=== PATIENT | male | born 1960 | race Caucasian/White ===

== ENCOUNTER 2017-08-27 08:36 | Emergency (ER) | payer BC, OTHER ==
[~2017-08-27] VITALS: Ht 191.8 cm; Wt 96.8 kg
[~2017-08-27 08:36] MED LIST: ASPEC81 PO; B-COTAB18 PO; CHOL100027 PO; MISCCAP80 PO; MULTTAB58 PO; NIAC500T7 PO; NTRGSL/4 UT; OMEG1400 PO; SODI650T8 PO; VITACAP26 PO; VITATAB19 PO
[2017-08-27 08:42] VITALS: TEMP 36.4; Ht 191.8 cm; Wt 96.8 kg
--- NOTE | 2017-08-27 09:23 | DIAGNOSTIC IMAGING REPORT ---
L RIBS UNILATERAL WITH PA CHEST CLINICAL HISTORY: fall; L sided rib pain COMPARISON STUDY: Chest CTA 07/28/2014. FINDINGS: The lungs are clear. The heart is normal in size. No pleural effusions. No pneumothorax. Nondisplaced left lateral eighth rib fracture. IMPRESSION: Nondisplaced left lateral eighth rib fracture. No pneumothorax Electronically signed by: Allan Delacruz M.D. 08/27/2017 9:22 AM Dictated Date/Time: 08/27/2017 9:19 AM
[2017-08-27] MEDS ORDERED: HYDR-5688 PO (09:37)
[2017-08-27 10:00] VITALS: BP 141/83; PULSE 72; O2SAT 97
--- NOTE | 2017-08-27 12:21 | EMERGENCY ROOM VISIT NOTE ---
ED Visit Note First contact with patient: 08:44 Chief Complaint: Left back rib pain. History of Present Illness: Mr. Mancini is a 57-year-old white male who ambulates into the ED complaining of posterior left rib pain. Patient reports approximately one hour ago he was shoveling snow, slipped and fell onto the posterior left ribs. He reports before the fall he had no lightheaded or dizziness, the time and avoid and strike his head or have a loss of consciousness. After the fall he reports he had some mild dizziness but that has subsequently resolved. He also reports he had some nausea but has not vomited. Currently patient is complaining of posterior rib pain just inferior to the scapula in the area of ribs 7 and 8. He describes his pain as a constant deep achy sensation that becomes sharp with cough. He rates his discomfort 6/10. The pain is nonradiating. He has not taken any medications for pain prior to arrival at the hospital. He denies any associated symptoms with his pain and has no additional associated symptoms related to his fall. He denies headache, visual changes, hearing changes, difficult speaking, difficult swallowing, difficulty in relating/coordinating body movements, neck pain, lower back pain. Review of Systems: As noted above in history of present illness. 8 body systems were reviewed and found to be negative as noted above. Past Medical History: Diabetes, hypertension, myocardial infarction with status post stent placement, status post unspecified right ankle surgery. Current Medications: Medications Dose Route/Sig Max Daily Dose Days Date Category Dose Instructions Vitamin B Complex (B-Complex Vitamins) 1 Tab Tab 1 Tab PO DAILY 04/01/15 Reported Vitamin A (Vitamin A-Beta Carotene) 1 Tab Tab 1 Tab PO DAILY 04/01/15 Reported Vitamin D 1000 Unit (Cholecalciferol) 1,000 Unit Cap 4,000 Inter.unit PO BID 04/01/15 Reported [place]-3 ([place]-3 Fatty Acids) 1 Cap Cap 1 Cap PO TID 04/01/15 Reported Multivitamin (Multiple Vitamin) 1 Tab Tab 1 Tab PO DAILY 04/01/15 Reported Aspirin EC Low Dose (Aspirin) 81 Mg Ectab 81 Mg PO QAM 07/29/14 Rx Allergies to Medications: Patient denies. Social History: Patient is currently employed; he feels safe in his home environment; he denies tobacco and alcohol use. Physical Examination: Vital Signs: Date Time Temp Pulse Resp B/P (MAP) Pulse Ox O2 Delivery O2 Flow Rate FiO2 08/27/17 10:00 72 18 141/83 97 08/27/17 08:42 36.4 82 16 116/75 96 Room Air GENERAL: 57-year-old male in mild to moderate distress due to pain, nontoxic- appearing, afebrile and hemodynamically stable. NEUROLOGICAL: Awake, alert and oriented to person, place and time. Answering questions appropriately and following commands. Normal gait. Good hand eye coordination. SKIN: Warm, dry and pink. No soft tissue trauma noted. HEENT: Atraumatic and normocephalic. BACK: No tenderness over the bony cervical and thoracic spine. Mild tenderness over the mid lateral trapezius without spasm. Full range of motion of the cervical spine. No CVA tenderness. THORAX: Lungs sounds are clear to auscultation and equal bilaterally with symmetrical chest wall. No wheezing, rales or rhonchi. Moderate tenderness over the posterior ribs just inferior to the scapula without bony deformity or crepitus. No subcutaneous air. EXTREMITIES: Moves all extremities well on coNo calf tenderness or cords. ED Course: Patient is assessed as noted above. Patient's medication list was reviewed. Patient was offered pain medication and refused. PA Chest and Left Rib X-Rays: Were read by myself and the radiologist showing no acute infiltrates, effusions or pneumothorax. Normal heart silhouette. Nondisplaced left eighth rib fracture. Patient was educated about today's findings and instructed on his treatment plan ; he verbalizes understanding and agreement with this plan. Clinical Impression: Left eighth rib fracture. Status post fall. Disposition: Patient discharged home in stable condition; prior to departure he was reassessed and subjectively reported he was feeling the same. Plan: Comfort measures were discussed with the patient including rest, ice and a sliding pain medication scale of ibuprofen, acetaminophen and [place]; he was given appropriate narcotic precautions and his name was checked in the state database and no red flags were noted. Additionally I discussed the need for deep breathing exercises due to decreased the risk of pneumonia. Patient was encouraged to follow-up with primary care provider for recheck in 4- 5 days if no better. Patient was encouraged return ED for uncontrolled pain, shortness of breath, wheezing, fevers, coughing up blood or any new/concerning symptoms.
== END 2017-08-27 10:01 | disposition home or self-care (01) ==
LOC: C.EDB 08:37 → C.EDA 10:01
DX: S22.32XA Fracture of one rib, left side, initial encounter for closed fracture (principal); W01.0XXA Fall on same level from slipping, tripping and stumbling without subsequent striking against object, initial encounter; I10 Essential (primary) hypertension; E11.9 Type 2 diabetes mellitus without complications; Z79.82 Long term (current) use of aspirin; Z79.899 Other long term (current) drug therapy; Z98.890 Other specified postprocedural states

== ENCOUNTER 2019-09-23 15:59 | Inpatient (IN) ==
[2019-09-23] MEDS ORDERED: ACETAMINOPHEN 500 MG TAB PO STA (16:19)
[2019-09-23] MEDS ORDERED: ACETAMINOPHEN 500 MG TAB ONE (16:20)
[2019-09-23] MEDS ORDERED: SODIUM CHLORIDE 0.9% 1000ML 1,000 ML IV ONE (17:22)
[2019-09-23] MEDS ORDERED: OSELTAMIVIR PHOSPHATE 75 MG CAP PO STA (17:22)
[2019-09-23] MEDS ORDERED: IBUPROFEN 600 MG TAB PO STA (17:23)
[2019-09-23 18:03] LABS: Albumin Level 3.7 gm/dl (3.4-5.0); BUN Creatinine Ratio 9.5 (10-20); Calcium 8.8 mg/dl (8.5-10.1); Creatinine Clr Calc Pharmacy 63.3 ml/min; Est GFR (African American) 63.1; Est GFR (Non-African American) 54.4; Potassium 3.6 mmol/L (3.5-5.1)
[2019-09-23 18:06] LABS: Bilirubin,Total 0.8 mg/dl (0.2-1); Globulin 3.6 gm/dl (2.5-4.0); Total Protein 7.3 gm/dl (6.4-8.2)
[2019-09-23 18:30] LABS: Hematocrit (blood only) 37.6 % (42-52); Hemoglobin 14.6 g/dL (14.0-18.0); Mean Corpuscular Hemoglobin 33.2 pg (25-34); Mean Corpuscular Hgb Conc 38.8 g/dL (32-36); Mean Corpuscular Volume 85.5 fL (80-100); Mean Platelet Volume 10.4 fL (7.4-10.4); Platelet Count 162 K/uL (130-400); RDW Coefficient of Variation 11.5 % (11.5-14.5); RDW Standard Deviation 36.1 fL (36.4-46.3); White Blood Count 6.93 K/uL (4.8-10.8)
--- NOTE | 2019-09-23 18:30 | XRay Report ---
XR chest 2V PA/lateral CLINICAL HISTORY: Cough. Evaluate for pneumonia. COMPARISON STUDY: Chest CT September 20, 2019. FINDINGS: Lung volumes are mildly diminished. There is no pneumothorax or pleural effusion. Mild left basilar opacity favors atelectasis. Cardiac size is normal. There is no evidence for pulmonary edema . IMPRESSION: 1. No acute findings. 2. Mild left basilar opacity suggestive of atelectasis. ACT 112: Negative or not required by law. Electronically signed by: Reji Jolly M.D. 09/23/2019 6:29 PM
[2019-09-23 18:31] LABS: Basophils # (auto) 0.01 K/uL (0-0.2); Basophils % (auto) 0.1 %; Immature Granulocytes # (auto) 0.01 K/uL (0.00-0.02); Immature Granulocytes % (auto) 0.1 %; Lymphocytes # (auto) 0.65 K/uL (1.2-3.4); Lymphocytes % (auto) 9.4 %; Monocytes # (auto) 0.81 K/uL (0.11-0.59); Monocytes % (auto) 11.7 %; Neutrophils # (auto) 5.45 K/uL (1.4-6.5); Neutrophils % (auto) 78.7 %; RBC Morphology Unremarkable
--- NOTE | 2019-09-23 19:11 | Emergency Department Note ---
Entered by Konrad Olivarez acting as a scribe for History of Present Illness General Chief complaint: Fever Stated complaint: CONGESTED, HIGH FEVER Time Seen by Provider: 09/23/19 17:15 Source: patient Limitations: no limitations History of Present Illness Onset (ago): day(s) (yesterday morning) Location: head Pain Consistency: + constant Maximum Pain Intensity: 0 Quality: + constant Relieved By: + none Associated symptoms: + cough, + fever/chills and + other (congestion) Treatments prior to arrival: other (Tylenol) The patient is a 59 year old male who presents to the Emergency Room with complaints of a constant fever and flulike symptoms starting yesterday morning The patient states he has been coughing. He complains of generalized weakness, body aches and fatigue. He denies chest pain or shortness of breath. He states he has been having congestion. He states he received Tylenol in the waiting alvino m, but states he does not feel better right now. The patient denies having asthma or any other medical problems. The patient states he did not get the flu shot this year. Home Medications Home Medications Medication Instructions Recorded Confirmed Type cholecalciferol (vitamin D3) 125 5,000 units PO QAM cap 03/02/19 09/23/19 History mcg (5,000 unit) capsule terese extract 500 mg capsule 2 cap PO QAM cap 08/25/19 09/23/19 History allopurinol [Zyloprim] 300 mg PO QAM 09/20/19 09/23/19 History aspirin 81 mg PO QAM 09/20/19 09/23/19 History cyclobenzaprine 5 - 10 mg PO Q8H PRN #20 tab 09/20/19 09/23/19 Rx metformin [Glucophage] 500 mg PO BID 09/20/19 09/23/19 History vitamin A palmitate 10,000 unit PO QAM 09/20/19 09/23/19 History Allergies Allergy/AdvReac Type Severity Reaction Status Date / Time No Known Allergies Allergy Verified 09/23/19 17:51 Past Med/Surg History Medical History CAD (coronary artery disease) Dyslipidemia Surgical History Hx of heart artery stent Social History Feels Safe at Home: Yes Smoking Status: Former smoker Review of Systems See HPI for pertinent positives & negatives. and A total of 10 systems reviewed and were otherwise negative Physical Exam Vital Signs Vital Signs - 24 hr 09/23/19 16:14 09/23/19 18:14 Temperature 39.0 C H Temperature Source Oral Pulse Rate 121 H Pulse Rate [Right Finger] 79 Pulse Rhythm Regular Pulse Rhythm [Right Finger] Regular Pulse Strength Normal Pulse Strength [Right Finger] Normal Respiratory Rate 20 Respiratory Effort / Characteristics Non-Labored Spontaneous Non-Labored Spontaneous Respiratory Depth Normal Normal Respiratory Pattern Regular Blood Pressure 149/85 H Blood Pressure [Left Arm] 145/79 H Blood Pressure Mean 106 Blood Pressure Mean [Left Arm] 101 Blood Pressure Position Sitting Pulse Oximetry 96 99 Oxygen Delivery Method Room Air Room Air Sepsis Recent Fever Within 48 Hours Yes Sepsis New/Unexplained Change in Mental Status No Sepsis Action Taken by Nursing No Action Required Constitutional: Vital signs reviewed. Diaphoretic. Eyes: Pupils are equal round reactive to light. Conjunctiva are noninjected. ENT: Pharynx is clear without erythema or exudate. Mucous membranes are moist. Neck supple without meningeal signs. Respiratory: Clear to auscultation bilaterally. Breath sounds are equal bilaterally. Cardiovascular: Tachycardic rate. Regular rhythm. No rubs or gallops. GI: Soft, nondistended and nontender. Bowel sounds are present. Musculoskeletal: No peripheral edema. No lower extremity tenderness. Integumentary: No cyanosis. Neurological: The patient is rather somnolent but answers questions. No focal deficits. Psychiatric: Difficult to assess. Course Course 1720: The [facility], and a complete history and physical examination were performed. Administered Medications Discontinued Medications Acetaminophen (Tylenol) 1,000 mg PO ONE STA Stop: 09/23/19 16:20 Last Admin: 09/23/19 16:21 Dose: Not Given Documented by: [id number] Acetaminophen (Tylenol) Confirm Administered Dose 1,000 mg .ROUTE .STK-MED ONE Stop: 09/23/19 16:21 Last Admin: 09/23/19 16:21 Dose: 1,000 mg Documented by: [id number] Sodium Chloride (Nss 1000ml) 1,000 mls @ 999 mls/hr IV .Q1H1M ONE Stop: 09/23/19 18:22 Last Admin: 09/23/19 18:08 Dose: 999 mls/hr Documented by: [id number] Ibuprofen (Motrin) 600 mg PO NOW STA Stop: 09/23/19 17:24 Last Admin: 09/23/19 18:07 Dose: 600 mg Documented by: [id number] Oseltamivir Phosphate (Tamiflu) 75 mg PO NOW STA; Protocol Stop: 09/23/19 17:23 Last Admin: 09/23/19 18:07 Dose: 75 mg Documented by: [id number] Medical Decision Making Differential Diagnosis Differential Diagnosis includes but is not limited to influenza, viral syndrome, pneumonia, dehydration, and sepsis. Medical Records Attestation: I reviewed the patient's medical records. The patient was seen in the ED for back pain on September 20. He was discharged after an evaluation including a CT of his chest to rule out PE. Home Medications Current Medication List: was personally reviewed by me Laboratory Data Attestation: I reviewed the patient's lab results. Result diagrams: 09/23/19 Unknown 09/23/19 Unknown Lab Results 09/23/19 09/23/19 09/23/19 Range/Units 16:11 Unknown Unknown WBC 6.93 (4.8-10.8) K/uL RBC 4.40 L (4.7-6.1) M/uL Hgb 14.6 (14.0-18.0) g/dL Hct 37.6 L (42-52) % MCV 85.5 (80-100) fL MCH 33.2 (25-34) pg MCHC 38.8 H (32-36) g/dL RDW Std Deviation 36.1 L (36.4-46.3) fL RDW Coeff of Dirk 11.5 (11.5-14.5) % Plt Count 162 (130-400) K/uL MPV 10.4 (7.4-10.4) fL Immature Gran % (Auto) 0.1 % Neut % (Auto) 78.7 % Lymph % (Auto) 9.4 % [place] % (Auto) 11.7 % Eos % (Auto) 0.0 % Baso % (Auto) 0.1 % Immature Gran # (Auto) 0.01 (0.00-0.02) K/uL Neut # (Auto) 5.45 (1.4-6.5) K/uL Lymph # (Auto) 0.65 L (1.2-3.4) K/uL [place] # (Auto) 0.81 H (0.11-0.59) K/uL Eos # (Auto) 0.00 (0-0.5) K/uL Baso # (Auto) 0.01 (0-0.2) K/uL RBC Morphology Unremarkable Sodium 121 L (136-145) mmol/L Potassium 3.6 (3.5-5.1) mmol/L Chloride 90 L (98-107) mmol/L Carbon Dioxide 21 (21-32) mmol/L Anion Gap 10.0 (3-11) BUN 14 (7-18) mg/dl Creatinine 1.42 H (0.6-1.4) mg/dl Est Cr Clr Drug Dosing 63.3 ml/min Est GFR ( Amer) 63.1 Est GFR (Non-Af Amer) 54.4 BUN/Creatinine Ratio 9.5 L (10-20) Glucose 191 H (70-99) mg/dl Calcium 8.8 (8.5-10.1) mg/dl Total Bilirubin 0.8 (0.2-1) mg/dl AST 16 (15-37) U/L ALT 23 (12-78) U/L Alkaline Phosphatase 69 (45-117) U/L Total Protein 7.3 (6.4-8.2) gm/dl Albumin 3.7 (3.4-5.0) gm/dl Globulin 3.6 (2.5-4.0) gm/dl Albumin/Globulin Ratio 1.0 (0.9-2) Influenza Type A Ag Neg for Influ A (Neg) Influenza Type B Ag Pos for Influ B A* (Neg) Imaging Data Radiologist's Impression: Radiology results as stated below per my review and the radiologist's interpretation: Blood Pressure Blood Pressure Findings: Elevated blood pressure Blood Pressure Disposition: Referred to patients primary care provider [facility] Narrative I did evaluate the patient as noted above. The patient is presenting with flulike symptoms. A flu swab was obtained in triage and he was given Tylenol. Flu PCR testing is positive for influenza B. I did assess him in the sub- waiting room. He was tachycardic and appeared ill and so I called the charge nurse to have him placed into a room. IV access was established. The patient was placed on a continuous night monitor. He was given Motrin p.o. for persistent fever. He was also given normal saline IV 1 L. I did order and personally reviewed the images of the patient's chest x-ray as described above. He does not have evidence of pneumonia. I did order and review the patient's blood work as noted in the electronic medical record. His white blood cell count is not elevated. He is not anemic. He does have significant electrolyte derangements. His sodium is 121 with a chloride of 90. Creatinine slightly elevated at 1.4. Glucose is 191. I did reassess the patient. I did discuss the test results with him. He is feeling better at this time. He is no longer tachycardic. He does state that he drinks about 80 ounces of water a day but states that he has been doing this for years. I did recommend hospitalization for further evaluation. He was given Tamiflu 75 mg p.o. I did discuss the case with the hospitalist and employment evaluator/case manager. Impression & Plan Acute hyponatremia, Influenza B Discharge Plan Visit Data Chief Complaint: Fever Stated Complaint: CONGESTED, HIGH FEVER ED Provider: Stanley Guajardo Discharge Problem: Acute hyponatremia, Influenza B Forms Stand Alone Forms: My [facility] Prescriptions Prescriptions: No Action cholecalciferol (vitamin D3) 5,000 unit capsule 5,000 units PO QAM RF: 0 terese extract 500 mg capsule 2 cap PO QAM RF: 0 metformin [Glucophage] 500 mg tablet 500 mg PO BID RF: 0 aspirin 81 mg Tablet,Delayed Release (Dr/Ec) 81 mg PO QAM RF: 0 allopurinol [Zyloprim] 300 mg tablet 300 mg PO QAM RF: 0 vitamin A palmitate 10,000 unit Capsule 10,000 unit PO QAM RF: 0 cyclobenzaprine 5 mg tablet 5 - 10 mg PO Q8H PRN (Reason: muscle spasm) Qty: 20 RF: 0 The scribe's documentation has been prepared under my direction and personally reviewed by me in its entirety. I confirm that the note above accurately reflects all work, treatment, procedures, and medical decision making performed by me.
--- NOTE | 2019-09-23 19:38 | History & Physical Report ---
Date of Service September 23, 2019 Assessment & Plan (1) Influenza B: -Admit to [facility] with telemetry -Patient presenting from home with reports of cough and fever -In the ED, tested positive for influenza B -No signs of pneumonia on CXR -Saturating well on room air -Low-grade fever, otherwise hemodynamically stable -Supportive care with IVF, IV steroids, PRN Tylenol, Tamiflu (2) Hyponatremia: -Na+ 121 -Likely hypovolemic hyponatremia in the setting of acute illness -NSS at 100/hour -serial BMPs (3) DM type 2 (diabetes mellitus, type 2): -Hgb A1c 6.6 07/2019 -Hold metformin and utilize NovoLog protocol hospitalized (4) CAD (coronary artery disease): -Appears stable, no reports of chest pain -Continue aspirin -Patient has history of medical noncompliance and has self stopped his statin and other cardiac medications in the past (5) CKD (chronic kidney disease), stage III: - baseline creat runs in the mid 's - creat noted to be 1.4 today - continue to monitor, avoid nephrotoxic agents when able (6) DVT prophylaxis: -SQ Lovenox History of Present Illness Chief Complaint: Cough, fever Primary Care Provider: Timi Lord MD 59-year-old male who presents the ED for evaluation of cough and fever. Patient reports his symptoms began yesterday. He reports a productive cough. He reports feeling generally unwell. He has had nausea but denies vomiting, abdominal pain, diarrhea. No chest pain or shortness of breath. Denies lightheadedness, dizziness, diaphoresis, syncopal events. No urinary symptoms. In the ED, patient has low-grade fever of 39.0. Influenza B positive. Hyponatremia with Na+121. He was given Tylenol, ibuprofen, Tamiflu, IVF. Allergies Allergy/AdvReac Type Severity Reaction Status Date / Time No Known Allergies Allergy Verified 09/23/19 17:51 Home Medications Home Medications Medication Instructions Recorded Confirmed Type cholecalciferol (vitamin D3) 125 5,000 units PO QAM cap 03/02/19 09/23/19 History mcg (5,000 unit) capsule terese extract 500 mg capsule 2 cap PO QAM cap 08/25/19 09/23/19 History allopurinol [Zyloprim] 300 mg PO QAM 09/20/19 09/23/19 History aspirin 81 mg PO QAM 09/20/19 09/23/19 History cyclobenzaprine 5 - 10 mg PO Q8H PRN #20 tab 09/20/19 09/23/19 Rx metformin [Glucophage] 500 mg PO BID 09/20/19 09/23/19 History vitamin A palmitate 10,000 unit PO QAM 09/20/19 09/23/19 History Past Med/Surg History Medical History CAD (coronary artery disease) 06/2014: [facility] to mid RCA CKD (chronic kidney disease), stage III DM type 2 (diabetes mellitus, type 2) Dyslipidemia Hypertension Surgical History Hx of heart artery stent Family History Denies family history of Heart disease Social History Feels Safe at Home: Yes Smoking Status: Former smoker Hx Alcohol Use: Yes Alcohol Intake Frequency: Holidays/Special Occasions Review of Systems Review of Systems: ROS per HPI, all other systems reviewed and negative Physical Exam Physical Exam: Please refer to Dr. Colvin's addendum for physical exam. Results & Data Vital Signs (Past 12 Hours) Vital Signs Temp Pulse Pulse Resp BP BP Pulse Ox 09/23/19 18:14 79 20 145/79 H 99 09/23/19 16:14 39.0 C H 121 H 149/85 H 96 Laboratory Results Short CBC 09/23/19 Range/Units Unknown WBC 6.93 (4.8-10.8) K/uL Hgb 14.6 (14.0-18.0) g/dL Hct 37.6 L (42-52) % Plt Count 162 (130-400) K/uL BMP 09/23/19 Unknown Sodium 121 L Potassium 3.6 Chloride 90 L Carbon Dioxide 21 BUN 14 Creatinine 1.42 H Glucose 191 H Calcium 8.8 Liver Function 09/23/19 Range/Units Unknown Total Bilirubin 0.8 (0.2-1) mg/dl AST 16 (15-37) U/L ALT 23 (12-78) U/L Alkaline Phosphatase 69 (45-117) U/L Albumin 3.7 (3.4-5.0) gm/dl Diagnostic Findings CXR IMPRESSION: 1. No acute findings. 2. Mild left basilar opacity suggestive of atelectasis. Code Status & VTE Plan VTE Prophylaxis Plan VTE Prophylaxis will be ordered: Yes Supervising Physician Co-Signing Physician Notes I saw this patient with the Nurse Practitioner, I participated in the history, physical, review of systems, and physical exam. I reviewed the medications with the patient and the Nurse Practitioner and helped reconcile the medications. I helped take a detailed family and social history as well. I formulated the assessment and plan personally with the Nurse Practitioner went over it with the patient. ROS-No Headache, No Visual Changes, + Nausea, No Vomiting, + Fever, + Chills, + Body Aches, No Neck Pain or Stiffness, No Chest Pain, No Palpitations, No SOB, No [place]LS[place], No Cough, No Sputum, No Wheezing, No Abdominal Pain, No Diarrhea, No Hematemesis, No Hemoptysis, No Unexpected Weight Loss, No Flank pain, No Melena, No Hematochezia, No Frequency, No Urgency, No Burning, No Hematuria, No Rashes, No Diaphoresis. Appetite is Normal Physical Exam Gen-AAO x 3, NAD, febrile Head-NCAT, EOMI, PERRLA, Anicteric Sclera, No Posterior Pharyngeal Erythema Neck-Supple, No JVD, No Thyromegaly, No Masses, No LAD, No Bruits Lungs-+Rhonchi, + Wheezing, No Crepitus, No Rales Chest-No S4, +S1, +S2, No S3, No Murmurs, No Rubs, No Gallops, No Ectopy Abdomen-Soft, Bowel Sounds Present, Non Tender, Non Distended, No Hepatomegaly, No Splenomegaly, No Palpable Masses, No Rebound, No Rigidity, No Guarding Musculoskeletal-Full Range of Motion Bilaterally, No CVAT Extremities-No Cyanosis, No Clubbing, No Edema Nuero-Cranial Nerves II-XII grossly intact, Motor WNL, DTRs WNL, Strength WNL, Non Focal Psych-Normal Mood
[2019-09-23] MEDS ORDERED: GLUCOSE 40% GEL 15 GM TUBE PO PRN (20:41)
[2019-09-23] MEDS ORDERED: GLUCOSE 10 TABS/TUBE PO PRN (20:41)
[2019-09-23] MEDS ORDERED: ACETAMINOPHEN 325 MG TAB PO PRN (20:41)
[2019-09-23] MEDS ORDERED: CARBOHYDRATES FOR HYPOGLYCEMIA PO PRN (20:41)
[2019-09-23] MEDS ORDERED: DEXTROSE 50% 50 ML SYRINGE IV PRN (20:41)
[2019-09-23] MEDS ORDERED: GLUCAGON FOR INJ 1 MG VIAL SQ PRN (20:41)
[2019-09-23] MEDS ORDERED: PNEUMOCOCCAL ADMINISTRATION CHARGE ONE (21:02)
[2019-09-23] MEDS ORDERED: INFLUENZA VIRUS QUAD VACCINE 0.5 ML SYR IM ONE (21:02)
[2019-09-23] MEDS ORDERED: PNEUMOCOCCAL POLYSACCHARIDES 25 MCG/0.5 ML VIAL/SYR IM ONE (21:02)
[2019-09-23] MEDS ORDERED: INFLUENZA ADMINISTRATION CHARGE ONE (21:02)
[2019-09-23 21:28] LABS: BUN Creatinine Ratio 9.1 (10-20); Calcium 8.6 mg/dl (8.5-10.1); Creatinine Clr Calc Pharmacy 66.3 ml/min; Est GFR (African American) 60.5; Est GFR (Non-African American) 52.2; Potassium 4.2 mmol/L (3.5-5.1)
[2019-09-23] MEDS: methylPREDNISolone 40 MG in SYRINGE 0 ML IV SCH (21:45)
[2019-09-23] MEDS: SODIUM CHLORIDE 0.9% 1000ML 1,000 ML IV SCH (21:45)
[2019-09-23] MEDS: ENOXAPARIN INJ 40 MG/0.4 ML SYR SQ SCH (21:45)
[2019-09-23] MEDS: OSELTAMIVIR PHOSPHATE 75 MG CAP PO SCH (21:46)
[2019-09-23] MEDS: INSULIN ASPART 100 UNITS/ML 3 ML PEN SC SCH (21:49)
[2019-09-24 03:24] LABS: Hematocrit (blood only) 39.2 % (42-52); Hemoglobin 15.1 g/dL (14.0-18.0); Mean Corpuscular Hgb Conc 38.5 g/dL (32-36); Mean Corpuscular Volume 85.6 fL (80-100); Mean Platelet Volume 9.6 fL (7.4-10.4); Platelet Count 160 K/uL (130-400); RDW Coefficient of Variation 11.6 % (11.5-14.5); Red Blood Count 4.58 M/uL (4.7-6.1); White Blood Count 6.83 K/uL (4.8-10.8)
[2019-09-24 03:27] LABS: BUN Creatinine Ratio 10.4 (10-20); Calcium 8.9 mg/dl (8.5-10.1); Creatinine Clr Calc Pharmacy 69.6 ml/min; Est GFR (African American) 64.2; Est GFR (Non-African American) 55.4; Potassium 4.1 mmol/L (3.5-5.1)
[2019-09-24] MEDS: methylPREDNISolone 40 MG in SYRINGE 0 ML IV SCH ×2 (05:58→14:31)
[2019-09-24] MEDS ORDERED: CHLORASEPTIC 1.4% SOLN 180 ML BTL MT PRN (06:07)
[2019-09-24] MEDS: ALBUT/IPRATROP 3MG/0.5MG NEB 3 ML VIAL NEB SCH ×4 (06:53→20:02)
[2019-09-24] MEDS ORDERED: PHARMACY GLYCEMIC MGMT CONSULT SCH (08:28)
--- NOTE | 2019-09-24 08:46 | Pharmacy Report ---
Glycemic Control Consultation - Date of Service September 24, 2019 - Scope Scope: Glycemic Pharmacist consulted by Dr Dean on 09/24/19 for glycemic control and to write orders per [facility] inpatient glycemic control protocol - Objective Weight: 98 kg Accsoloecks BSG (last 24hrs): 09/23/19 09/23/19 09/24/19 20:50 Unknown 02:53 Glucose 210 H 191 H 243 H POC Glucose 09/24/19 07:45 Glucose POC Glucose 274 H Laboratory Data (last 24hrs): 09/23/19 09/23/19 09/24/19 20:50 Unknown 02:53 Potassium 4.2 D 3.6 4.1 Carbon Dioxide 21 21 21 Anion Gap 12.0 H 10.0 12.0 H Creatinine 1.47 H 1.42 H 1.40 Est Cr Clr Drug Dosing 66.3 63.3 69.6 - Recent Pertinent Medications Outpatient Anti-diabetic Regimen: * Metformin 500mg PO BID * A1c = 6.6 % 07/2019 The patient is currently receiving: * Basal insulin: none * Correctional Insulin: Novolog Correction per scale ACHS Goal Range: Low 100 mg/dL - High 140 mg/dL Correction Factor: 30 mg/dL/unit * Prandial insulin: Per carb ratio of 1 unit per 10 grams CHO consumed * Oral Agents: On hold Risk Factors for Insulin Resistance: * Steroids: Solu-medrol 40mg IV Q8H * Infection: Influenza B * Diet: Type 2 DM - Assessment & Plan Assessment & Plan: ASSESSMENT: * 59 year old male, admitted for influenza B, on IV steroids, type 2 diabetic well controlled on Metformin at home. * Will begin basal bolus therapy for steroid induced hyperglycemia, weight based and titrate to goal and loosen parameters as steroids taper. * ADA & AACE recommend a goal blood sugar range 140-180 mg/dl for the majority of critically ill & non-critically ill patients. However, more stringent targets may be selected in individual cases. Will utilize more stringent goal of 110-140mg/dl based on patient age & comorbidities. Additionally, tighter glycemic control is warranted to facilitate wound/infection healing. PLAN FOR INPATIENT GLYCEMIC CONTROL: * Holding outpatient oral diabetes medications * Basal insulin * Lantus 30 units SQ daily starting now, decrease as steroids decreased * Bolus insulin * NovoLog per scale ACHS or Q6hrs while NPO * Goal Range: Low 110 mg/dL - High 140 mg/dL * tighten: Correction Factor: 15 mg/dL/unit * tighten: Nutritional / Prandial insulin per carb ratio of 1 unit per 5 grams CHO consumed * Please note that the plan above was derived based on current level of insulin resistance and hospital stress. These recommendations are appropriate for inpatient admission only. Plan of care upon discharge will need to be reassessed to avoid potential outpatient hypo/hyperglycemia. Thank you.
[2019-09-24] MEDS: SODIUM CHLORIDE 0.9% 1000ML 1,000 ML IV SCH ×2 (09:06→18:59)
[2019-09-24] MEDS: INSULIN ASPART 100 UNITS/ML 3 ML PEN SC SCH ×6 (09:07→23:26)
[2019-09-24] MEDS: OSELTAMIVIR PHOSPHATE 75 MG CAP PO SCH ×2 (09:08→20:39)
[2019-09-24] MEDS: allopurinoL 300 MG TAB PO SCH (09:08)
[2019-09-24] MEDS: ASPIRIN 81 MG ECTAB PO SCH (09:08)
[2019-09-24] MEDS: INSULIN GLARGINE SOLOSTAR 100 UNITS/ML 3 ML PEN SC SCH (09:09)
[2019-09-24 09:18] LABS: BUN Creatinine Ratio 9.9 (10-20); Creatinine Clr Calc Pharmacy 66.3 ml/min; Est GFR (African American) 60.5; Est GFR (Non-African American) 52.2
[2019-09-24 14:58] LABS: BUN Creatinine Ratio 9.8 (10-20); Calcium 8.8 mg/dl (8.5-10.1); Creatinine Clr Calc Pharmacy 49.7 ml/min; Est GFR (African American) 42.7; Est GFR (Non-African American) 36.9; Potassium 3.7 mmol/L (3.5-5.1)
[2019-09-24] MEDS ORDERED: BENZONATATE 100 MG CAPSULE PO PRN (15:40)
--- NOTE | 2019-09-24 18:40 | Hospitalist Progress Note ---
Date of Service September 24, 2019 Assessment & Plan (1) Influenza B: Per admitting service notes -In the ED, tested positive for influenza B -No signs of pneumonia on CXR 09/24/2019 Slightly improved, afebrile Continue Tamiflu, taper Solu-Medrol to every 12, continue nebs 4 times daily Add Hycodan as needed for cough as patient feeling exhausted with coughing spells, unable to have quality sleep (2) Hyponatremia: -Na+ 121 -Likely hypovolemic hyponatremia in the setting of acute illness --Sodium improved from 1 21-1 25 Increase NSS to 100 cc/h Check BMP tonight (3) DM type 2 (diabetes mellitus, type 2): -Hgb A1c 6.6 07/2019 -Hold metformin and utilize NovoLog protocol hospitalized -Pharmacy glycemic control consulted as patient is on Solu-Medrol (4) CAD (coronary artery disease): -Denies chest pain -Continue aspirin -History of nonadherence to medications in the past as per admitting service (5) CKD (chronic kidney disease), stage III: - baseline creat runs in the mid 1's - creat increased to 1.9 -IV NSS increased Continue to monitor (6) DVT prophylaxis: -SQ Lovenox Disposition Anticipate discharge to home when medically stable Admission and Anticipated Discharge Date Admission Date: September 23, 2019 Subjective Follow-up for influenza infection, hyponatremia Seen resting in bed, not in distress but does appear somewhat weak States he feels slightly better than yesterday Still has generalized malaise Still having dry cough, but no shortness of breath, no chest pain No headache, no dizziness no palpitations Had mild nausea this morning but no abdominal pain No other symptoms Review of Systems Review of Systems: All systems reviewed & are unremarkable except as noted in HPI & below Physical Exam Physical Exam: General- oriented x 3, not in distress, speaks in sentences with no effort or accessory muscle use Head- atraumatic Eyes- PERRL, EOMI, anicteric ENT- oropharynx clear Neck- supple, no JVD, no adenopathy, no thyromegaly; carotids +2/2, no bruits appreciated Lungs-positive mild rhonchi diffuse, bilaterally, faint wheeze Heart- normal rate, regular rhythm; no murmur, no gallop, no rub appreciated Abdomen- normal bowel sounds, nondistended, soft, nontender, no masses or hepatosplenomegaly Extremities- no pretibial edema, no calf tenderness; peripheral pulses intact Neuro- alert, oriented x 3; CN 2-12 grossly intact; motor 5/5 bilaterally;sensation 100% on all extremities; no other gross focal neurologic deficits Skin- warm & dry Results & Data ([facility]) Vital Signs (Past 12 Hours) Vital Signs Temp Pulse Pulse Resp BP BP Pulse Ox 09/24/19 16:00 37.4 C 109 H 101 H 133/81 93 09/24/19 15:50 102 H 18 91 09/24/19 11:42 37.5 C 107 H 18 155/91 H 90 09/24/19 10:56 107 H 16 90 09/24/19 10:01 111 H 09/24/19 07:23 37.5 C 119 H 20 130/81 94 09/24/19 06:56 85 19 91
[2019-09-24] MEDS: HYDROCODONE/HOMATROPINE SYRUP 5MG/1.5MG 5ML UDP PO PRN ×2 (18:59→23:26)
[2019-09-24 20:17] LABS: BUN Creatinine Ratio 12.6 (10-20); Calcium 8.9 mg/dl (8.5-10.1); Creatinine Clr Calc Pharmacy 50.2 ml/min; Est GFR (African American) 43.3; Est GFR (Non-African American) 37.3; Potassium 3.8 mmol/L (3.5-5.1)
[2019-09-24] MEDS: guaiFENesin 600 MG TABCR PO SCH (20:38)
[2019-09-24] MEDS: ENOXAPARIN INJ 40 MG/0.4 ML SYR SQ SCH (20:40)
[2019-09-25] MEDS: INSULIN ASPART 100 UNITS/ML 3 ML PEN SC SCH ×5 (04:18→21:45)
[2019-09-25] MEDS: SODIUM CHLORIDE 0.9% 1000ML 1,000 ML IV SCH ×2 (04:27→14:44)
[2019-09-25] MEDS ORDERED: SODIUM CHLORIDE 0.65% NA SOLN 45 ML (OCEAN) PRN (04:28)
[2019-09-25] MEDS ORDERED: SODIUM CHLORIDE 0.65% NA SOLN 45 ML (OCEAN) ONE (04:31)
[2019-09-25] MEDS ORDERED: methylPREDNISolone 40 MG in SYRINGE 0 ML IV SCH (06:00)
[2019-09-25] MEDS: ALBUT/IPRATROP 3MG/0.5MG NEB 3 ML VIAL NEB SCH ×4 (06:52→19:08)
[2019-09-25] MEDS: INSULIN GLARGINE SOLOSTAR 100 UNITS/ML 3 ML PEN SC SCH (09:02)
[2019-09-25] MEDS: guaiFENesin 600 MG TABCR PO SCH ×2 (09:02→20:42)
[2019-09-25] MEDS: allopurinoL 300 MG TAB PO SCH (09:02)
[2019-09-25] MEDS: ASPIRIN 81 MG ECTAB PO SCH (09:02)
[2019-09-25] MEDS: OSELTAMIVIR PHOSPHATE 75 MG CAP PO SCH ×2 (09:02→20:43)
[2019-09-25 09:29] LABS: BUN Creatinine Ratio 14.6 (10-20); Calcium 8.7 mg/dl (8.5-10.1); Creatinine Clr Calc Pharmacy 68.1 ml/min; Est GFR (African American) 62.6; Potassium 3.9 mmol/L (3.5-5.1)
--- NOTE | 2019-09-25 09:41 | Pharmacy Report ---
Pharmacy Glycemic Short Note 2 - Date of Service September 25, 2019 - Glycemic Short BSG Results (Last 24 hours): 09/24/19 09/24/19 09/24/19 11:19 11:20 14:26 Glucose 252 H POC Glucose 322 H* 325 H* 09/24/19 09/24/19 09/24/19 14:45 16:43 19:50 Glucose 193 H POC Glucose 272 H 211 H 09/24/19 09/24/19 09/24/19 20:32 23:15 23:16 Glucose POC Glucose 236 H 282 H 288 H 09/25/19 09/25/19 09/25/19 04:15 07:46 08:38 Glucose 245 H POC Glucose 160 H 229 H OUTPATIENT ANTIDIABETIC REGIMEN: * Metformin 500mg PO BID * A1c = 6.6 % 07/2019 ASSESSMENT: 09/25/19 * Patient is currently receiving an average of 118 units of insulin per day * 30 units of basal insulin * 88 units of prandial/correctional insulin * BSGs ranging 160 -325mg/dl over the past 24hrs * Risk factors for insulin resistance are decreasing over the past 24hrs * Steroid dosing tapering down from Solu-medrol 40mg IV Q8H to Q12H * Anticipating insulin regimen will need increased for the next 24hrs d/t : * Blood sugars above goal, will tighten CF/CR further for steroid effects most prominently on postprandial blood sugar. * Loosen parameters as steroids decrease and blood sugars trend down. 09/24/19 * 59 year old male, admitted for influenza B, on IV steroids, type 2 diabetic well controlled on Metformin at home. * Will begin basal bolus therapy for steroid induced hyperglycemia, weight based and titrate to goal and loosen parameters as steroids taper. * ADA & AACE recommend a goal blood sugar range 140-180 mg/dl for the majority of critically ill & non-critically ill patients. However, more stringent targets may be selected in individual cases. Will utilize more stringent goal of 110-140mg/dl based on patient age & comorbidities. Additionally, tighter glycemic control is warranted to facilitate wound/infection healing. PLAN FOR INPATIENT GLYCEMIC CONTROL: * Holding outpatient oral diabetes medications * Basal insulin * Lantus 30 units SQ daily * Bolus insulin * NovoLog per scale ACHS or Q6hrs while NPO * Goal Range: Low 110 mg/dL - High 140 mg/dL * tighten: Correction Factor: 8 mg/dL/unit * tighten: Nutritional / Prandial insulin per carb ratio of 1 unit per 2.5 grams CHO consumed DISCHARGE RECOMMENDATIONS: * A1c 6.6%, continue Metformin. * If patient to be discharged on steroid taper, recommend giving NPH doses with prednisone.
[2019-09-25] MEDS ORDERED: INSULIN GLARGINE SOLOSTAR 100 UNITS/ML 3 ML PEN SC ONE (12:15)
[2019-09-25 16:18] LABS: BUN Creatinine Ratio 14.9 (10-20); Calcium 8.9 mg/dl (8.5-10.1); Creatinine Clr Calc Pharmacy 61.3 ml/min; Est GFR (Non-African American) 47.5; Potassium 3.7 mmol/L (3.5-5.1)
--- NOTE | 2019-09-25 17:40 | XRay Report ---
TWO VIEW CHEST CLINICAL HISTORY: Cough. FINDINGS: PA and lateral chest radiographs are compared to study dated 09/23/2019 and correlated with chest CT dated 09/20/2019. The cardiomediastinal silhouette is unremarkable. There is mild bibasilar at electasis. The lungs and pleural spaces are otherwise clear. There is no pneumothorax. The bony thora x appears intact. IMPRESSION: No active disease in the chest. ACT 112: Negative or not required by law. Electronically signed by: Edward Hightower M.D. 09/25/2019 5:38 PM
--- NOTE | 2019-09-25 18:06 | Hospitalist Progress Note ---
Date of Service September 25, 2019 Assessment & Plan (1) Influenza B: Per admitting service notes -In the ED, tested positive for influenza B -No signs of pneumonia on CXR 09/25/2019 improving, afebrile Continue Tamiflu, taper Solu-Medrol to daily, continue nebs 4 times daily repeat CXR: no pneumonia Hycodan PRN (2) Hyponatremia: -Na+ 121 -Likely hypovolemic hyponatremia in the setting of acute illness --Sodium improved to 132 decrease NSS to 75 cc/h Acute Kidney Injury -- crea improving monitor (3) DM type 2 (diabetes mellitus, type 2): -Hgb A1c 6.6 07/2019 -Hold metformin and utilize NovoLog protocol hospitalized -Pharmacy glycemic control consulted as patient is on Solu-Medrol (4) CAD (coronary artery disease): -Denies chest pain -Continue aspirin -History of nonadherence to medications in the past as per admitting service (5) CKD (chronic kidney disease), stage III: - baseline creat runs in the mid 1's - creat increased to 1.9 -IV NSS increased Continue to monitor (6) DVT prophylaxis: -SQ Lovenox Disposition Anticipate discharge to home tomorrow medically stable Admission and Anticipated Discharge Date Admission Date: September 23, 2019 Subjective ff up for influenza infection, hyponatremia seen resting in bed, not in distress appears brighter states he feels improved compared to yesterday dyspnea resolved, less cough no chest pain no other symptoms Review of Systems Review of Systems: All systems reviewed & are unremarkable except as noted in HPI & below Physical Exam Physical Exam: General- oriented x 3, not in distress, speaks in sentences with no effort or accessory muscle use Eyes- anicteric Neck- no JVD Lungs- clear on the right, mild crackles on the left no wheezing Heart- normal rate, regular rhythm; no murmurs Abdomen- normal bowel sounds, nondistended, soft, nontender Extremities- no pretibial edema, no calf tenderness Neuro- alert, oriented x 3; no gross focal neurologic deficits Skin- warm & dry Results & Data ([facility]) Vital Signs (Past 12 Hours) Vital Signs Temp Pulse Pulse Resp BP Pulse Ox 09/25/19 17:52 91 H 09/25/19 15:09 98 H 18 95 09/25/19 15:01 36.7 C 98 H 18 151/83 H 90 09/25/19 12:10 36.7 C 112 H 18 147/79 H 90 09/25/19 10:50 107 H 18 90 09/25/19 08:30 71 09/25/19 07:20 36.6 C 80 18 153/85 H 90 09/25/19 06:52 83 90 Laboratory Results Laboratory Results - last 24 hr 09/24/19 09/24/19 09/25/19 23:15 23:16 04:15 Sodium Potassium Chloride Carbon Dioxide Anion Gap BUN Creatinine Est Cr Clr Drug Dosing Est GFR ( Amer) Est GFR (Non-Af Amer) BUN/Creatinine Ratio Glucose POC Glucose 282 H 288 H 160 H Calcium 09/25/19 09/25/19 09/25/19 07:46 08:38 11:48 Sodium 126 L Potassium 3.9 Chloride 97 L Carbon Dioxide 18 L Anion Gap 11.0 BUN 21 H Creatinine 1.43 H D Est Cr Clr Drug Dosing 68.1 Est GFR ( Amer) 62.6 Est GFR (Non-Af Amer) 54.0 BUN/Creatinine Ratio 14.6 Glucose 245 H POC Glucose 229 H 347 H* Calcium 8.7 09/25/19 09/25/19 09/25/19 15:32 15:47 16:36 Sodium 132 L Potassium 3.7 Chloride 104 Carbon Dioxide 20 L Anion Gap 8.0 BUN 24 H Creatinine 1.59 H Est Cr Clr Drug Dosing 61.3 Est GFR ( Amer) 55.0 Est GFR (Non-Af Amer) 47.5 BUN/Creatinine Ratio 14.9 Glucose 111 H POC Glucose 132 H 111 H Calcium 8.9 09/25/19 20:26 Sodium Potassium Chloride Carbon Dioxide Anion Gap BUN Creatinine Est Cr Clr Drug Dosing Est GFR ( Amer) Est GFR (Non-Af Amer) BUN/Creatinine Ratio Glucose POC Glucose 125 H Calcium
[2019-09-25] MEDS: ENOXAPARIN INJ 40 MG/0.4 ML SYR SQ SCH (20:43)
[2019-09-26] MEDS: SODIUM CHLORIDE 0.9% 1000ML 1,000 ML IV SCH (01:30)
[2019-09-26] MEDS ORDERED: LORazepam 0.5 MG TAB PO STA (01:38)
[2019-09-26 07:13] LABS: BUN Creatinine Ratio 12.8 (10-20); Calcium 8.6 mg/dl (8.5-10.1); Creatinine Clr Calc Pharmacy 67.6 ml/min; Est GFR (Non-African American) 53.5; Potassium 3.6 mmol/L (3.5-5.1)
[2019-09-26] MEDS: ALBUT/IPRATROP 3MG/0.5MG NEB 3 ML VIAL NEB SCH ×2 (07:27→11:13)
[2019-09-26] MEDS: OSELTAMIVIR PHOSPHATE 75 MG CAP PO SCH (08:07)
[2019-09-26] MEDS: allopurinoL 300 MG TAB PO SCH (08:07)
[2019-09-26] MEDS: INSULIN ASPART 100 UNITS/ML 3 ML PEN SC SCH ×2 (08:07→12:30)
[2019-09-26] MEDS: ASPIRIN 81 MG ECTAB PO SCH (08:07)
[2019-09-26] MEDS: guaiFENesin 600 MG TABCR PO SCH (08:07)
[2019-09-26] MEDS ORDERED: ALBUTEROL HFA 8 GM INHALER INH PRN (12:20)
--- NOTE | 2019-09-26 12:28 | Hospitalist Progress Note ---
Date of Service September 26, 2019 Assessment & Plan (1) Influenza B: Per admitting service notes -In the ED, tested positive for influenza B -No signs of pneumonia on CXR 09/26/2019 clinically improved overall Continue Tamiflu x 5 more days to complete 7 days therapy given severity of illness, tapered Solu-Medrol --> transition to Prednisone taper starting at 40mg daily x 2 days, given nebs QID--> transition to Albuterol PRN repeat CXR: no pneumonia Hycodan PRN (2) Hyponatremia: -Na+ 121 -Likely hypovolemic hyponatremia in the setting of acute illness -- given IV NSS --Sodium improved to 135 Acute Kidney Injury -- crea improving now 1.44 -- repeat PRP on ff up with PCP this week (3) DM type 2 (diabetes mellitus, type 2): -Hgb A1c 6.6 07/2019 -continue metformin at home (4) CAD (coronary artery disease): -Denies chest pain -Continue aspirin -History of nonadherence to medications in the past as per admitting service (5) CKD (chronic kidney disease), stage III: - baseline creat runs in the mid 1's - creat increased to 1.9 -IV NSS increased - crea improved to 1.4 (6) DVT prophylaxis: -SQ Lovenox Disposition d/c to home tomorrow ff up with PCP next week, clinic to call patient as sched office is closed today Admission and Anticipated Discharge Date Admission Date: September 23, 2019 Subjective ff up for influenza, bronchitis seen resting in bed, comfortable, not in distress brighter, more energy states he feels improved overall still has some chest congestion but better less cough, no sputum no shortness of breath denies chest pain, dizziness, nausea no headache no abdominal pain, changes with BM or urination states he is ready and would like to be discharged today Review of Systems Review of Systems: All systems reviewed & are unremarkable except as noted in HPI & below Physical Exam Physical Exam: General- oriented x 3, not in distress, speaks in sentences with no effort or accessory muscle use Eyes- anicteric Neck- no JVD Lungs- very faint rhonchi at the bases, no wheezing Heart- normal rate, regular rhythm; no murmurs Abdomen- normal bowel sounds, nondistended, soft, nontender Extremities- no pretibial edema, no calf tenderness Neuro- alert, oriented x 3; no gross focal neurologic deficits Skin- warm & dry Results & Data ([facility]) Vital Signs (Past 12 Hours) Vital Signs Temp Pulse Pulse Resp BP Pulse Ox 09/26/19 11:14 102 H 18 94 09/26/19 07:29 114 H 18 93 09/26/19 07:15 99 H 09/26/19 04:40 37.0 C 91 H 21 156/87 H 90 Laboratory Results Laboratory Results - last 24 hr 09/25/19 09/25/19 09/25/19 15:32 15:47 16:36 Sodium 132 L Potassium 3.7 Chloride 104 Carbon Dioxide 20 L Anion Gap 8.0 BUN 24 H Creatinine 1.59 H Est Cr Clr Drug Dosing 61.3 Est GFR ( Amer) 55.0 Est GFR (Non-Af Amer) 47.5 BUN/Creatinine Ratio 14.9 Glucose 111 H POC Glucose 132 H 111 H Calcium 8.9 09/25/19 09/26/19 09/26/19 20:26 06:11 07:48 Sodium 135 L Potassium 3.6 Chloride 105 Carbon Dioxide 24 Anion Gap 6.0 BUN 18 Creatinine 1.44 H Est Cr Clr Drug Dosing 67.6 Est GFR ( Amer) 62.0 Est GFR (Non-Af Amer) 53.5 BUN/Creatinine Ratio 12.8 Glucose 74 POC Glucose 125 H 105 H Calcium 8.6 09/26/19 11:37 Sodium Potassium Chloride Carbon Dioxide Anion Gap BUN Creatinine Est Cr Clr Drug Dosing Est GFR ( Amer) Est GFR (Non-Af Amer) BUN/Creatinine Ratio Glucose POC Glucose 222 H Calcium
[2019-09-26] MEDS ORDERED: AMLODIPINE BESYLATE 5 MG TAB PO SCH (12:30)
[2019-09-26] MEDS ORDERED: INSULIN GLARGINE SOLOSTAR 100 UNITS/ML 3 ML PEN SC SCH (12:45)
[2019-09-26] MEDS ORDERED: predniSONE 20 MG TAB PO ONE (12:45)
--- NOTE | 2019-09-26 12:51 | Discharge Summary ---
Date of Service September 26, 2019 Admission HPI Per Admitting Provider 59-year-old male who presents the ED for evaluation of cough and fever. Patient reports his symptoms began yesterday. He reports a productive cough. He reports feeling generally unwell. He has had nausea but denies vomiting, abdominal pain, diarrhea. No chest pain or shortness of breath. Denies lightheadedness, dizziness, diaphoresis, syncopal events. No urinary symptoms. In the ED, patient has low-grade fever of 39.0. Influenza B positive. Hyponatremia with Na+121. He was given Tylenol, ibuprofen, Tamiflu, IVF. Admission Exam Per Admitting Provider Gen-AAO x 3, NAD, febrile Head-NCAT, EOMI, PERRLA, Anicteric Sclera, No Posterior Pharyngeal Erythema Neck-Supple, No JVD, No Thyromegaly, No Masses, No LAD, No Bruits Lungs-+Rhonchi, + Wheezing, No Crepitus, No Rales Chest-No S4, +S1, +S2, No S3, No Murmurs, No Rubs, No Gallops, No Ectopy Abdomen-Soft, Bowel Sounds Present, Non Tender, Non Distended, No Hepatomegaly, No Splenomegaly, No Palpable Masses, No Rebound, No Rigidity, No Guarding Musculoskeletal-Full Range of Motion Bilaterally, No CVAT Extremities-No Cyanosis, No Clubbing, No Edema Nuero-Cranial Nerves II-XII grossly intact, Motor WNL, DTRs WNL, Strength WNL, Non Focal Psych-Normal Mood Principal Diagnosis INFLUENZA B INFECTION WITH ACUTE BRONCHITIS, HYPONATREMIA Discharge Exam General- oriented x 3, not in distress, speaks in sentences with no effort or accessory muscle use Eyes- anicteric Neck- no JVD Lungs- very faint rhonchi at the bases, no wheezing Heart- normal rate, regular rhythm; no murmurs Abdomen- normal bowel sounds, nondistended, soft, nontender Extremities- no pretibial edema, no calf tenderness Neuro- alert, oriented x 3; no gross focal neurologic deficits Skin- warm & dry Discharge Data Allergies Allergy/AdvReac Type Severity Reaction Status Date / Time No Known Allergies Allergy Verified 09/23/19 17:51 Consultations 09/23/19 18:35 ED Decision to Admit Stat Ordered Studies 09/25/19 TWO VIEW CHEST CLINICAL HISTORY: Cough. FINDINGS: PA and lateral chest radiographs are compared to study dated 09/23/2019 and correlated with chest CT dated 09/20/2019. The cardiomediastinal silhouette is unremarkable. There is mild bibasilar atelectasis. The lungs and pleural spaces are otherwise clear. There is no pneumothorax. The bony thorax appears intact. IMPRESSION: No active disease in the chest. Hospital Course (1) Influenza B: INFLUENZA B INFECTION WITH ACUTE BRONCHITIS -In the ED, tested positive for influenza B -No signs of pneumonia on CXR - given Tamiflu, Solumedrol IV taper, Nebs QID, PRN Hyocdan - clinically improved overall Continue Tamiflu x 4 more days to complete 7 days therapy given severity of illness, Solu-Medrol --> transition to Prednisone taper starting at 40mg daily x 2 days, then 20mg x 2 days; given nebs QID--> transition to Albuterol PRN continue Mucinex repeat CXR 09/25/19: no pneumonia (2) Hyponatremia: -Na+ 121 on admission -Likely hypovolemic hyponatremia in the setting of acute illness -- given IV NSS --Sodium gradually corrected, improved to 135 -- repeat BMP on ff up with PCP Acute Kidney Injury -- crea increased to 1.9, given IV NSS, improved to 1.4 -- repeat BMP on ff up with PCP this week (3) Hypertension: -- BP elevated up to 150s-160s Amlodipine 5mg po daily started -- ff up with PCP (4) DM type 2 (diabetes mellitus, type 2): -Hgb A1c 6.6 07/2019 -continue metformin (5) CAD (coronary artery disease): -Denies chest pain -Continue aspirin -History of nonadherence to medications in the past as per admitting service (6) CKD (chronic kidney disease), stage III: - baseline creat runs in the mid 1's - creat increased to 1.9 -IV NSS increased - crea improved to 1.4 (7) DVT prophylaxis: -SQ Lovenox given Disposition d/c to home ff up with PCP on Sat09/30/19 Total Time Total Time Spent Total Time Spent (In Minutes): 50 minutes Discharge Plan Discharge Items Patient Disposition: Home - Self-Care Reason For Visit: FLU,HYPONATREMIA Discharge Diagnosis: INFLUENZA INFECTION Activity: As commented below Activity Comment: RESUME ACTIVITY GRADUALLY TOLERATED, AMBULATE FREQUENTLY AT HOME Lifting: Wait until after follow-up appointment Exercise/Sports: Wait until after follow-up appointment Driving/Machine Use: NO DRIVING UNTIL RE-EVALUATED AND ALLOWED BY PRIMARY CARE PHYSICIAN Non-emergency contact: Primary Care Provider Call non-emergency contact if: you have any medication questions, your symptoms worsen and you have a fever Follow-up/Referrals: Timi Lord MD [Primary Care Provider] - 09/30/19 1:05 pm (Your follow up appt is Saturday 09/30 @ 105pm/ This appt has replaced your currently scheduled appt for 09/28. Please arrive 15 minutes prior to appt time. If this new appt does not fit your schedule please call [phone] to reschedule. ) Diet: Carb Consistent or DM2 and Heart Healthy Addtl Attending Provider Instructions: PLEASE REVIEW YOUR NEW MEDICATION LIST AND FOLLOW INSTRUCTIONS CAREFULLY. YOUR NEW MEDICATIONS INCLUDE: TAMIFLU- antiviral for treatment of the flu PREDNISONE- steroid for chest congestion MUCINEX- to help with coughing ALBUTEROL- inhaler as needed for shortness of breath/wheezing AMLODIPINE- for control of high blood pressure CONTINUE USING INCENTIVE SPIROMETER AT HOME. DRINK PLENTY OF FLUIDS. STAY AT HOME AND AVOID PUBLIC PLACES , USE A FACEMASK WHEN AROUND OTHER PEOPLE FOR A FEW DAYS UNTIL YOUR SYMPTOMS HAVE RESOLVED AND YOU FEEL MUCH BETTER. PLEASE CALL YOUR PRIMARY CARE PHYSICIAN OR RETURN TO THE ER IMMEDIATELY IF WITH WORSENING OF SYMPTOMS, FEVER/CHILLS, INCREASED COUGH AND PHLEGM. FOLLOW UP WITH DR. LORD THIS COMING WEEK, OUTLINED ABOVE. Pending Studies at Discharge: Yes Studies:: REPEAT BLOODWORK C/O PRIMARY CARE PHYSICIAN ON FOLLOW UP VISIT Stand-Alone Forms: My [facility] [employer] Smoking Cessation Medications and DC Order Prescriptions: New amlodipine [Norvasc] 5 mg Tablet 5 mg PO QAM 30 Days Qty: 30 RF: 2 oseltamivir [Tamiflu] 75 mg Capsule 75 mg PO BID 4 Days Qty: 8 RF: 0 albuterol sulfate [Ventolin HFA] 90 mcg/actuation Hfa Aerosol Inhaler 2 puff inhalation Q4H PRN (Reason: shortness of breath or wheezing) 10 Days Qty: 1 RF: 1 prednisone 10 mg tablet 10 mg PO UD Qty: 8 RF: 0 guaifenesin [Mucinex] 600 mg Tablet Extended Release 12hr 1,200 mg PO Q12 5 Days Qty: 20 RF: 0 Continued cholecalciferol (vitamin D3) 5,000 unit capsule 5,000 units PO QAM RF: 0 terese extract 500 mg capsule 2 cap PO QAM RF: 0 metformin [Glucophage] 500 mg tablet 500 mg PO BID RF: 0 aspirin 81 mg Tablet,Delayed Release (Dr/Ec) 81 mg PO QAM RF: 0 allopurinol [Zyloprim] 300 mg tablet 300 mg PO QAM RF: 0 vitamin A palmitate 10,000 unit Capsule 10,000 unit PO QAM RF: 0 cyclobenzaprine 5 mg tablet 5 - 10 mg PO Q8H PRN (Reason: muscle spasm) Qty: 20 RF: 0 Discharge Orders: Discharge Order (Routine); Ordered 09/26/19 Ordered By: Reggie Dean Admission Data Admit Date/Time: 09/23/19 18:58 Attending Provider: Reggie Dean Admit Provider: Braxton Colvin Primary Care Provider: Timi Lord Other Providers: Braxton Colvin
[2019-09-27] MEDS ORDERED: predniSONE 20 MG TAB PO SCH (09:00)
== END 2019-09-26 14:31 | disposition home or self-care (01) | DRG 194 ==
LOC: ED 15:59 → SUATTDRO 18:58 → 2N 18:58

== ENCOUNTER 2021-08-22 08:36 | Inpatient (IN) ==
[2021-08-22] MEDS ORDERED: SODIUM CHLORIDE 0.9% 1000ML 1,000 ML IV SCH (09:00)
--- NOTE | 2021-08-22 09:21 | XRay Report ---
XR chest 1V portable CLINICAL HISTORY: Dyspnea. COMPARISON STUDY: 09/25/2019 TECHNIQUE: 1 view of the chest FINDINGS: Single frontal view of the chest demonstrates the cardiomediastinal silhouette to be within normal li mits. Patchy interstitial and alveolar opacities are present bilaterally. The findings are most césar cteristic of a viral type pneumonitis. Covid 19 pneumonia should be excluded. There is no evidence fo r pleural effusion. There is no evidence for vascular congestion. There is no acute osseous pathology . IMPRESSION: Patchy interstitial and alveolar opacities bilaterally characteristic of a viral type pne umonitis and probable early Covid 19 pneumonia. ACT 112: Negative or not required by law. Electronically signed by: Chip Vera M.D. 08/22/2021 9:20 AM
--- NOTE | 2021-08-22 09:32 | Emergency Department Note ---
History of Present Illness General Chief complaint: Shortness of Breath/Dyspnea Stated complaint: SOB, NO APPETITE, LOW FEVER COUGH, LETHARGIC, DIZZ Time Seen by Provider: 08/22/21 08:47 History of Present Illness This 61-year-old male patient with significant past medical history of type 2 diabetes, CKD stage III, CAD, hypertension, presents to the emergency department today for evaluation of 12-day history of shortness of breath, intermittent fevers, fatigue, and some occasional nausea with decreased appetite. The patient states there has been a cough which is sometimes productive of sputum. He is feeling generally short of breath and tiring out quickly. He did not receive a COVID-19 vaccine or a influenza vaccine. He denies any known exposures. He has been taking Mucinex occasionally without relief of his symptoms. Patient feels that he is having difficulty eating and drinking due to his symptoms. He denies any chest pain or abdominal pain. No vomiting. He rates his discomfort a 4/10. Home Medications Medication Instructions Recorded Confirmed Type cholecalciferol (vitamin D3) 125 5,000 units PO QAM cap 03/02/19 08/22/21 History mcg (5,000 unit) capsule aspirin 81 mg tablet,delayed 81 mg PO QAM 09/20/19 08/22/21 History release vitamin A palmitate 10,000 unit 10,000 unit PO QAM 09/20/19 08/22/21 History capsule allopurinol 300 mg tablet 300 mg PO QAM 08/22/21 08/22/21 History Allergies Allergy/AdvReac Type Severity Reaction Status Date / Time No Known Allergies Allergy Verified 08/22/21 11:24 Past Med/Surg History Medical History Antiplatelet or antithrombotic long-term use CAD (coronary artery disease) 06/2014: MARTHA to mid RCA Chest pain, atypical CKD (chronic kidney disease), stage III DM type 2 (diabetes mellitus, type 2) Dyslipidemia Fatty liver Gout History of herpes simplex infection History of orthostatic hypotension Hypertension Male erectile disorder of organic origin Near syncope Polyarthritis Surgical History History of ankle surgery Hx of heart artery stent Family History Denies family history of Heart disease Social History Smoking Status: Former smoker Tobacco Type: Cigarettes Hx Alcohol Use: Yes Alcohol type: hard liquor Hx Substance Use: No Preferred Language: Welsh Communication Ability: Effective Study Assistant Required: No Beliefs That Will Affect Care: None marital status: Single Current Living Situation: Alone Other Information That Helps Us Care for You: No Feels Safe at Home: Yes Safety Concerns: Feels Safe At This Time Assistive Devices: None Review of Systems A total of 10 systems reviewed and were otherwise negative Physical Exam Vital Signs Vital Signs - 24 hr 08/22/21 08:42 08/22/21 09:22 08/22/21 09:28 Temperature 36.4 C L Temperature Source Temporal Artery Scan Pulse Rate 114 H 101 H 101 H Pulse Rate [Apical] Pulse Rate from SpO2 Sensor Respiratory Rate 20 26 H 24 Respiratory Effort / Characteristics Spontaneous Respiratory Pattern Regular Blood Pressure 130/77 169/92 H Blood Pressure [Right Arm] Blood Pressure Mean 94 117 Blood Pressure Mean [Right Arm] Pulse Oximetry 91 Pulse Oximetry [Exercises] Oxygen Delivery Method Room Air Oxygen Flow Rate Sepsis Recent Fever Within 48 Hours No Sepsis New/Unexplained Change in Mental Status No Sepsis Action Taken by Nursing No Action Required 08/22/21 09:30 08/22/21 09:35 08/22/21 09:37 Temperature Temperature Source Pulse Rate 102 H Pulse Rate [Apical] Pulse Rate from SpO2 Sensor 103 H Respiratory Rate 24 Respiratory Effort / Characteristics Respiratory Pattern Blood Pressure 167/93 H Blood Pressure [Right Arm] Blood Pressure Mean 117 Blood Pressure Mean [Right Arm] Pulse Oximetry 95 93 Pulse Oximetry [Exercises] Oxygen Delivery Method Room Air Room Air Room Air Oxygen Flow Rate Sepsis Recent Fever Within 48 Hours Sepsis New/Unexplained Change in Mental Status Sepsis Action Taken by Nursing 08/22/21 09:39 08/22/21 11:10 08/22/21 11:12 Temperature Temperature Source Pulse Rate Pulse Rate [Apical] 99 H Pulse Rate from SpO2 Sensor Respiratory Rate 24 Respiratory Effort / Characteristics Respiratory Pattern Blood Pressure Blood Pressure [Right Arm] 168/93 H Blood Pressure Mean Blood Pressure Mean [Right Arm] 118 Pulse Oximetry 88 L Pulse Oximetry [Exercises] 86 L Oxygen Delivery Method Room Air Nasal Cannula Room Air Oxygen Flow Rate 2 Sepsis Recent Fever Within 48 Hours Sepsis New/Unexplained Change in Mental Status Sepsis Action Taken by Nursing VITALS: Vitals are noted on the nurse's note and reviewed by myself. Patient is hypoxic at 86% with minimal ambulation. He is tachycardic. GENERAL: This is a 61-year-old white male, in no acute distress, nondiaphoretic, well-developed well-nourished. SKIN: The skin was without rashes, erythema, edema, or bruising. There is no tenting of the skin. Capillary refill less than 2 seconds. HEAD: Normocephalic atraumatic. EYES: Conjunctivae without injection, sclerae without icterus. NECK: Supple without nuchal rigidity. No lymphadenopathy. Cervical spine is nontender. No JVD. HEART: Regular rate and rhythm without murmurs gallops or rubs. LUNGS: Clear to auscultation bilaterally without wheezes, rales or rhonchi. No retractions or accessory muscle use. ABDOMEN: Positive bowel sounds x 4. Soft, nontender, without masses or organomegaly. Queen sign negative. No guarding or rebound tenderness. MUSCULOSKELETAL: No muscle atrophy, erythema, or edema noted. Full range of motion without joint tenderness in all extremities. No tenderness to palpation. Normal gait. Strength 5/5 throughout. NEURO: Patient was alert and oriented to person place and time. No focal neurological deficits. Course Course The patient was seen and evaluated as above. An order was placed for continuous cardiac monitoring. The monitor shows a normal sinus rhythm at a rate of 80 bpm. IV access obtained, labs drawn. Patient hydrated with IV fluids. X-ray imaging performed and reviewed by myself and radiologist as noted. Labs reviewed by myself. CT imaging performed and reviewed by myself and radiologist as noted. I discussed the findings with the patient at bedside. Recommended inpatient care. The patient was agreeable. I discussed the case with my attending. I discussed the case with the ED case management I discussed the case with the [facility] hospitalist, Lisbeth Kuhn PA-C. She did agree to see and evaluate the patient. She did request to start the patient on Decadron. We discussed the need to get the pharmacist involved due to elevated blood sugar I discussed case with the ED pharmacist. Will order insulin Please see hospitalist dictation regarding ongoing management and care of this patient. Administered Medications Insulin Aspart (Insulin Aspart Per Unit) 0 units SC ACHS JENNIFER Stop: 09/21/21 11:44 Last Admin: 08/22/21 12:05 Dose: 7 units Documented by: [id number] Cosigned by: [id number] Discontinued Medications Dexamethasone Sodium Phosphate (DexamethasonePf 10 Mg/Ml Vial) 6 mg IV NOW ONE Stop: 08/22/21 11:28 Last Admin: 08/22/21 12:07 Dose: 6 mg Documented by: [id number] Sodium Chloride (Nss 1000ml) 1,000 mls @ 999 mls/hr IV .Q1H1M JENNIFER Stop: 08/22/21 10:00 Last Infusion: 08/22/21 12:14 Dose: 0 mls/hr Documented by: [id number] Admin: 08/22/21 09:40 Dose: 999 mls/hr Documented by: [id number] Sodium Chloride (Nss 1000ml) 1,000 mls @ 999 mls/hr IV .Q1H1M ONE Stop: 08/22/21 11:28 Last Infusion: 08/22/21 13:18 Dose: 0 mls/hr Documented by: [id number] Admin: 08/22/21 12:08 Dose: 999 mls/hr Documented by: [id number] Ioversol (Optiray 320 125ml) 120 ml IV ONCE ONE Stop: 08/22/21 10:45 Last Admin: 08/22/21 10:45 Dose: 120 ml Documented by: [id number] Medical Decision Making Differential Diagnosis COVID-19, acute respiratory failure, reactive airway disease, pneumonia, pneumothorax, COPD, CHF, infections, cardiac ischemia, pulmonary embolism, musculoskeletal, gastrointestinal, as well as other pathologies. Medical Records Attestation: I reviewed the patient's medical records. Home Medications Current Medication List: was personally reviewed by me Laboratory Data Attestation: I reviewed the patient's lab results. No leukocytosis. There is a mild anemia with hemoglobin of 13.7. No thrombocytopenia. INR elevated 1.3. D-dimer 1290. Patient is mildly hyponatremic with a sodium of 124. Creatinine elevated at 1.67. Blood glucose elevated at 317. Transaminases elevated. Troponin negative. BNP greater than 3000. Procalcitonin 0.42. COVID-19 testing is positive. Result diagrams: 08/22/21 09:00 08/22/21 09:00 Lab Results 08/22/21 08/22/21 08/22/21 Range/Units 09:00 09:00 09:00 WBC 6.02 (4.8-10.8) K/uL RBC 4.31 L (4.7-6.1) M/uL Hgb 13.7 L (14.0-18.0) g/dL Hct 36.9 L (42-52) % MCV 85.6 (80-100) fL MCH 31.8 (25-34) pg MCHC 37.1 H (32-36) g/dL RDW Std Deviation 38.9 (36.4-46.3) fL RDW Coeff of Dirk 12.2 (11.5-14.5) % Plt Count 310 (130-400) K/uL MPV 9.7 (7.4-10.4) fL Immature Gran % (Auto) 0.2 % Neut % (Auto) 84.1 % Lymph % (Auto) 8.1 % Bartholomew % (Auto) 7.1 % Eos % (Auto) 0.2 % Baso % (Auto) 0.3 % Neut # (Auto) 5.06 (1.4-6.5) K/uL Lymph # (Auto) 0.49 L (1.2-3.4) K/uL Bartholomew # (Auto) 0.43 (0.11-0.59) K/uL Eos # (Auto) 0.01 (0-0.5) K/uL Baso # (Auto) 0.02 (0-0.2) K/uL Immature Gran # (Auto) 0.01 (0.00-0.02) K/uL PT 12.9 H (9.0-12.0) Seconds INR 1.3 H (0.9-1.1) APTT 29.2 (21.0-31.0) Seconds PTT Ratio 1.1 D-Dimer 1290 H* (0-500) ug/L FEU Sodium 124 L (136-145) mmol/L Potassium 3.9 (3.5-5.1) mmol/L Chloride 92 L (98-107) mmol/L Carbon Dioxide 23 (21-32) mmol/L Anion Gap 9.0 (3-11) BUN 23 H (7-18) mg/dl Creatinine 1.67 H (0.6-1.4) mg/dl Est Cr Clr Drug Dosing Not Reportable Est GFR ( Amer) 51.1 ml/min Est GFR (Non-Af Amer) 44.1 ml/min BUN/Creatinine Ratio 13.5 (10-20) Glucose 317 H* (70-99) mg/dl Calcium 9.5 (8.5-10.1) mg/dl Total Bilirubin 1.3 H (0.2-1) mg/dl AST 180 H (15-37) U/L ALT 238 H (12-78) Alkaline Phosphatase 146 H D (45-117) U/L Troponin I < 0.015 (0-0.045) ng/ml NT-Pro-B Natriuret Pep 3427 H (0-900) pg/ml Total Protein 7.6 (6.4-8.2) gm/dl Albumin 2.4 L (3.4-5.0) gm/dl Globulin 5.2 H (2.5-4.0) gm/dl Albumin/Globulin Ratio 0.5 L (0.9-2) Beta-Hydroxybutyric Acd 12.28 H (0.2-2.81) mg/dl Procalcitonin (0-0.5) ng/ml SARS-CoV-2 (PCR) (Negative) Influenza Type A (PCR) (Neg) Influenza Type B (PCR) (Neg) RSV (RT-PCR) (Neg) 08/22/21 08/22/21 Range/Units 09:25 09:30 WBC (4.8-10.8) K/uL RBC (4.7-6.1) M/uL Hgb (14.0-18.0) g/dL Hct (42-52) % MCV (80-100) fL MCH (25-34) pg MCHC (32-36) g/dL RDW Std Deviation (36.4-46.3) fL RDW Coeff of Dirk (11.5-14.5) % Plt Count (130-400) K/uL MPV (7.4-10.4) fL Immature Gran % (Auto) % Neut % (Auto) % Lymph % (Auto) % Bartholomew % (Auto) % Eos % (Auto) % Baso % (Auto) % Neut # (Auto) (1.4-6.5) K/uL Lymph # (Auto) (1.2-3.4) K/uL Bartholomew # (Auto) (0.11-0.59) K/uL Eos # (Auto) (0-0.5) K/uL Baso # (Auto) (0-0.2) K/uL Immature Gran # (Auto) (0.00-0.02) K/uL PT (9.0-12.0) Seconds INR (0.9-1.1) APTT (21.0-31.0) Seconds PTT Ratio D-Dimer (0-500) ug/L FEU Sodium (136-145) mmol/L Potassium (3.5-5.1) mmol/L Chloride (98-107) mmol/L Carbon Dioxide (21-32) mmol/L Anion Gap (3-11) BUN (7-18) mg/dl Creatinine (0.6-1.4) mg/dl Est Cr Clr Drug Dosing Est GFR ( Amer) ml/min Est GFR (Non-Af Amer) ml/min BUN/Creatinine Ratio (10-20) Glucose (70-99) mg/dl Calcium (8.5-10.1) mg/dl Total Bilirubin (0.2-1) mg/dl AST (15-37) U/L ALT (12-78) Alkaline Phosphatase (45-117) U/L Troponin I (0-0.045) ng/ml NT-Pro-B Natriuret Pep (0-900) pg/ml Total Protein (6.4-8.2) gm/dl Albumin (3.4-5.0) gm/dl Globulin (2.5-4.0) gm/dl Albumin/Globulin Ratio (0.9-2) Beta-Hydroxybutyric Acd (0.2-2.81) mg/dl Procalcitonin 0.42 (0-0.5) ng/ml SARS-CoV-2 (PCR) POSITIVE A* (Negative) Influenza Type A (PCR) Negative (Neg) Influenza Type B (PCR) Negative (Neg) RSV (RT-PCR) Negative (Neg) Imaging Data Radiologist's Impression: Chest X-Ray 08/22/21 09:00 XR chest 1V portable CLINICAL HISTORY: Dyspnea. COMPARISON STUDY: 09/25/2019 TECHNIQUE: 1 view of the chest FINDINGS: Single frontal view of the chest demonstrates the cardiomediastinal silhouette to be within normal limits. Patchy interstitial and alveolar opacities are present bilaterally. The findings are most characteristic of a viral type pneumonitis. Covid 19 pneumonia should be excluded. There is no evidence for pleural effusion. There is no evidence for vascular congestion. There is no acute osseous pathology. IMPRESSION: Patchy interstitial and alveolar opacities bilaterally characteristic of a viral type pneumonitis and probable early Covid 19 pneumonia. ACT 112: Negative or not required by law. Electronically signed by: Chip Vera M.D. 08/22/2021 9:20 AM Chest CTA 08/22/21 09:58 CT angio chest PE protocol CLINICAL HISTORY: sob, + dimer . Evaluate for pulmonary embolus COMPARISON STUDY: Portable chest from 08/22/2021 CT DOSE: 563.08 mGycm TECHNIQUE: CT Angio of the chest was performed.followed by image post processing with coronal, and sagittal MIP reformats. Contrast Volume: Optiray 320, 120 ml FINDINGS: Vasculature: There is homogeneous perfusion of the pulmonary vasculature bilaterally. No intraluminal filling defects or evidence for pulmonary embolus is seen. Airway: The airway is clear. No endobronchial lesion is identified. Lungs: Extensive groundglass opacities are present throughout both lungs characteristic of a viral type pneumonitis and Covid 19 pneumonia. The lungs are otherwise clear of confluent alveolar opacities, air bronchograms or pulmonary nodules. Pleura: There is no evidence for pleural effusion. There is no evidence for pneumothorax. Mediastinum: There is no evidence for pathologic adenopathy. The heart size is within normal limits. The thoracic aorta is within normal limits. There is no evidence for pericardial effusion. Upper abdomen:The adrenal glands are normal bilaterally. Osseous structures: There is no acute osseous pathology. Impression: 1. No CTA evidence for pulmonary embolus. 2. Extensive groundglass opacities are present throughout both lungs characteristic of a viral type pneumonitis and Covid 19 pneumonia. ACT 112: Negative or not required by law. Electronically signed by: Chip Vera M.D. 08/22/2021 11:03 AM ECG Data Attestation: I personally reviewed and interpreted this ECG as follows: Indication: + SOB/dyspnea Rate (beats per minute): 98 Rhythm: + normal sinus ECG [place]: + Normal ECG ST segments: no ST depression, no ST elevation or no T-wave inversions Comparison ECG Date: from (09/20/2019) Change: no significant change Blood Pressure Blood Pressure Findings: Elevated blood pressure Blood Pressure Disposition: further management by hospitalist BEST Mejía This 61-year-old male patient presents to the emergency department today in the setting of 12 days of symptoms including shortness of breath, fevers, fatigue, nausea. The patient is having difficulty getting a breath and having difficulty keeping down food and fluids. The patient is not vaccinated for the flu or COVID-19. He was found to have COVID-19 here in the ED. The patient does have a mild anemia. Transaminases are elevated, creatinine of 1.67 (Hx. CKD stage 3). Troponin negative. D-dimer was positive and INR was mildly elevated. CT angiogram of the chest was performed and this was consistent with extensive groundglass opacities present throughout both lungs, characteristic of a viral type pneumonitis. Symptoms, examination, and testing are all consistent with COVID-19, COVID-19 pneumonia. The patient was found to be hypoxic with an O2 saturation of 86% with minimal exertion. He was placed on oxygen while in the emergency department, satting at around 91% on 2 L of oxygen. [facility] He was [facility]ated with Decadron. I did consult the ED pharmacist regarding insulin due to the hyperglycemia. Please see hospitalist dictation regarding ongoing management care of this patient The chart was completed utilizing [employer] Speech voice recognition software. Grammatical errors, random word insertions, pronoun errors, and incomplete sentences are an occasional consequence of this system due to software limitations, ambient noise, and hardware issues. Any formal questions or concerns about the content, text, or information contained within the body of this dictation should be directly addressed to the provider for clarification. Impression & Plan Pneumonia due to COVID-19 virus, Acute respiratory failure with hypoxia, COVID- 19, Chest pain, atypical, Hyponatremia, DM type 2 (diabetes mellitus, type 2), CKD (chronic kidney disease), stage III, CAD (coronary artery disease) Discharge Plan Visit Data Chief Complaint: Shortness of Breath/Dyspnea Stated Complaint: SOB, NO APPETITE, LOW FEVER COUGH, LETHARGIC, DIZZ ED Provider: Rodney Polo ED Midlevel Provider: Massiel Aguirre Discharge Problem: Pneumonia due to COVID-19 virus, Acute respiratory failure with hypoxia, COVID- 19, Chest pain, atypical, Hyponatremia, DM type 2 (diabetes mellitus, type 2), CKD (chronic kidney disease), stage III, CAD (coronary artery disease) Patient Disposition: Admitted As Inpatient
[2021-08-22 09:42] LABS: Basophils # (auto) 0.02 K/uL (0-0.2); Basophils % (auto) 0.3 %; Eosinophils # (auto) 0.01 K/uL (0-0.5); Eosinophils % (auto) 0.2 %; Hematocrit (blood only) 36.9 % (42-52); Hemoglobin 13.7 g/dL (14.0-18.0); Immature Granulocytes # (auto) 0.01 K/uL (0.00-0.02); Immature Granulocytes % (auto) 0.2 %; Lymphocytes # (auto) 0.49 K/uL (1.2-3.4); Lymphocytes % (auto) 8.1 %; Mean Corpuscular Hemoglobin 31.8 pg (25-34); Mean Corpuscular Hgb Conc 37.1 g/dL (32-36); Mean Corpuscular Volume 85.6 fL (80-100); Mean Platelet Volume 9.7 fL (7.4-10.4); Monocytes # (auto) 0.43 K/uL (0.11-0.59); Monocytes % (auto) 7.1 %; Neutrophils # (auto) 5.06 K/uL (1.4-6.5); Neutrophils % (auto) 84.1 %; Platelet Count 310 K/uL (130-400); RDW Coefficient of Variation 12.2 % (11.5-14.5); RDW Standard Deviation 38.9 fL (36.4-46.3); Red Blood Count 4.31 M/uL (4.7-6.1); White Blood Count 6.02 K/uL (4.8-10.8)
[2021-08-22 09:54] LABS: INR 1.3 (0.9-1.1); Partial Thromboplastin Ratio 1.1; Partial Thromboplastin Time 29.2 Seconds (21.0-31.0); Prothrombin Time 12.9 Seconds (9.0-12.0)
[2021-08-22 09:56] LABS: D Dimer 1290 ug/L FEU (0-500)
[2021-08-22 10:22] LABS: Alanine Aminotransferase 238 (12-78); Albumin Globulin Ratio 0.5 (0.9-2); Albumin Level 2.4 gm/dl (3.4-5.0); Alkaline Phosphatase 146 U/L (45-117); Aspartate Aminotransferase 180 U/L (15-37); BUN Creatinine Ratio 13.5 (10-20); Bilirubin,Total 1.3 mg/dl (0.2-1); Blood Urea Nitrogen 23 mg/dl (7-18); Calcium 9.5 mg/dl (8.5-10.1); Carbon Dioxide 23 mmol/L (21-32); Chloride 92 mmol/L (98-107); Est GFR (African American) 51.1 ml/min; Est GFR (Non-African American) 44.1 ml/min; Globulin 5.2 gm/dl (2.5-4.0); Glucose 317 mg/dl (70-99); NT Pro B Type Natriuretic Pept 3427 pg/ml (0-900); Potassium 3.9 mmol/L (3.5-5.1); Sodium 124 mmol/L (136-145); Total Protein 7.6 gm/dl (6.4-8.2); Troponin I < 0.015 ng/ml (0-0.045)
[2021-08-22] MEDS ORDERED: SODIUM CHLORIDE 0.9% 1000ML 1,000 ML IV ONE (10:28)
[2021-08-22 10:29] LABS: Influenza A virus by PCR Negative (Neg); Influenza B virus by PCR Negative (Neg); RSV by PCR Negative (Neg)
[2021-08-22 10:36] LABS: Beta-Hydroxybutyrate 12.28 mg/dl (0.2-2.81)
[2021-08-22 10:44] LABS: SARS CoV2 RNA(COVID-19) InHosp POSITIVE (Negative)
[2021-08-22] MEDS ORDERED: OPTIRAY 320 125ml IV ONE (10:44)
--- NOTE | 2021-08-22 11:04 | CT Scan Report ---
CT angio chest PE protocol CLINICAL HISTORY: sob, + dimer . Evaluate for pulmonary embolus COMPARISON STUDY: Portable chest from 08/22/2021 CT DOSE: 563.08 mGycm TECHNIQUE: CT Angio of the chest was performed.followed by image post processing with coronal, and s agittal MIP reformats. Contrast Volume: Optiray 320, 120 ml FINDINGS: Vasculature: There is homogeneous perfusion of the pulmonary vasculature bilaterally. No intraluminal filling defects or evidence for pulmonary embolus is seen. Airway: The airway is clear. No endobronchial lesion is identified. Lungs: Extensive groundglass opacities are present throughout both lungs characteristic of a viral ty pe pneumonitis and Covid 19 pneumonia. The lungs are otherwise clear of confluent alveolar opacities, air bronchograms or pulmonary nodules. Pleura: There is no evidence for pleural effusion. There is no evidence for pneumothorax. Mediastinum: There is no evidence for pathologic adenopathy. The heart size is within normal limits. The thoracic aorta is within normal limits. There is no evidence for pericardial effusion. Upper abdomen:The adrenal glands are normal bilaterally. Osseous structures: There is no acute osseous pathology. Impression: 1. No CTA evidence for pulmonary embolus. 2. Extensive groundglass opacities are present throughout both lungs characteristic of a viral type p neumonitis and Covid 19 pneumonia. ACT 112: Negative or not required by law. Electronically signed by: Chip Vera M.D. 08/22/2021 11:03 AM
[2021-08-22] MEDS ORDERED: dexAMETHasone**PF** 10 MG/ML VIAL IV ONE (11:27)
--- NOTE | 2021-08-22 11:38 | History & Physical Report ---
Date of Service August 22, 2021 Assessment & Plan (1) COVID-19: (2) Pneumonia due to COVID-19 virus: (3) Acute respiratory failure with hypoxia: Plan: - COVID-19 positive today, symptoms x 12 days, unvaccinated - Procalcitonin 0.42, checking CRP - Lymphocytes 0.49, neutrophils 5.06 - CXR reviewed noted opacities indicating pneumonia. CTPE is negative for PE but shows pneumonia. - O2 sats depressed with minial exertion at 86%, currently on 2 L with improvement to 91% - WBC= 6.02 - Cont decadron 6 mg IV daily. Does not qualify for antiviral therapy due to being 12 days out since developing symptoms. - Pt is not willing to be intubated at this time if needed. (4) CAD (coronary artery disease): Plan: - Had one stent put in his heart in 2014, he follows with [facility] as an outpatient - Antiplatelet with baby aspirin daily - He reports even if medication is ordered for any of his cardiac PMHx, he will not take it after leaving the hospital. (5) Hypertension: Plan: - Not on any antihypertensives (6) Dyslipidemia: Plan: - Check lipid panel with am labs, noted elevated cholesterol as an outpatient within [facility], but has previously refused medication for this - Does not exercise routinely - Will need to further encourage diet throughout hospital stay and upon discharge (7) DM type 2 (diabetes mellitus, type 2): Plan: - hx of such, last a1c 7.7 on 01/06/21, will recheck with am labs - Expected elevated glucose due to steroid administration here - ISS with accuchecks achs - pt does not take meds for DM as outpt and refuses such (8) CKD (chronic kidney disease), stage III: Plan: - Cr. 1.6 on admission, appears his baseline is more 1.5/1.6 as outpatient. DVT ppx: teds, lovenox subq BID CODE: DNR/DNI Dispo: From home, likely to remain in the hospital x 2 days History of Present Illness Chief Complaint: Shortness of breath Primary Care Provider: Timi Lord MD This is a 61 yo M with PMHx of DM II, HLD, CAD with 1 stent, fatty liver, and gout who presents to the ER with worsening shortness of breath. Respiratory symptoms including dry cough, fever, body aches and pain, poor appetite, which improved for a few days, then again worsened. Overall have been going on for 12+ days. Has used mucinex and benadryl, tyenol and advil. He is now feeling more short of breath in the past few days. He lives at home by himself, but has had an employee whom has been dropping off food/liz for him. 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 He is unvaccinated against COVID-19 and is positive here in the ER. If he needed intubated, he would not agree to it, and would not want resuscitated in the event his heart stopped. Pt states that he does not believe in treatment by medications or much of science. He is willing to stay in the hospital currently, however will not take medications if he is prescribed new things for his chronic medical history on discharge. Pt admits to being a former smoker and smoked for 6 years when he was in his 30s, denies any other pulmonary medical history. He does not need to wear O2. Very rarely uses alcohol, and previously used marijuana but no longer does. He denies routine physical activity. Allergies Allergy/AdvReac Type Severity Reaction Status Date / Time No Known Allergies Allergy Verified 08/22/21 11:24 Home Medications Medication Instructions Recorded Confirmed Type cholecalciferol (vitamin D3) 125 5,000 units PO QAM cap 03/02/19 08/22/21 History mcg (5,000 unit) capsule aspirin 81 mg tablet,delayed 81 mg PO QAM 09/20/19 08/22/21 History release vitamin A palmitate 10,000 unit 10,000 unit PO QAM 09/20/19 08/22/21 History capsule allopurinol 300 mg tablet 300 mg PO QAM 08/22/21 08/22/21 History Past Med/Surg History Medical History Antiplatelet or antithrombotic long-term use CAD (coronary artery disease) 06/2014: [facility] to mid RCA Chest pain, atypical CKD (chronic kidney disease), stage III DM type 2 (diabetes mellitus, type 2) Dyslipidemia Fatty liver Gout History of herpes simplex infection History of orthostatic hypotension Hypertension Male erectile disorder of organic origin Near syncope Polyarthritis Surgical History History of ankle surgery Hx of heart artery stent Family History Denies family history of Heart disease Social History Smoking Status: Former smoker Tobacco Type: Cigarettes Hx Alcohol Use: Yes Alcohol type: hard liquor Hx Substance Use: No Preferred Language: Azeri Communication Ability: Effective Bookkeeping Assistant Required: No Beliefs That Will Affect Care: None marital status: Single Current Living Situation: Alone Other Information That Helps Us Care for You: No Feels Safe at Home: Yes Safety Concerns: Feels Safe At This Time Assistive Devices: None Review of Systems Review of Systems: Constitutional: As per HPI, + fever, no sweats or chills Eyes: No diplopia, no worsening or blurred vision ENT: normal hearing, no trouble swallowing Respiratory: As per HPI, + cough, no sputum, + dyspnea on exertion but not at rest Cardiovascular: No chest pain, tightness or palpitations Abdomen: No pain, nausea, vomiting, diarrhea or constipation Musculoskeletal: No joint pain, calf pain, swelling Neurologic: + generalized weakness, no numbness/tingling, or balance problems Psychiatric: No anxiety or depression Skin: No rash or itch Physical Exam Physical Exam: Please refer to attending addendum as I did not see the patient in person due to being COVID-19 positive. Results & Data Results & Data ([facility]) Vital Signs (Past 12 Hours) Vital Signs Temp Pulse Pulse Resp BP BP Pulse Ox 08/22/21 11:12 08/22/21 11:10 99 H 24 168/93 H 88 L 08/22/21 09:35 93 08/22/21 09:30 102 H 24 167/93 H 95 08/22/21 09:28 101 H 24 169/92 H 08/22/21 09:22 101 H 26 H 08/22/21 08:42 36.4 C L 114 H 20 130/77 91 Pulse Ox 08/22/21 11:12 86 L 08/22/21 11:10 08/22/21 09:35 08/22/21 09:30 08/22/21 09:28 08/22/21 09:22 08/22/21 08:42 Laboratory Results 08/22/21 08/22/21 08/22/21 09:30 09:25 09:00 WBC RBC Hgb Hct MCV MCH MCHC RDW Std Deviation RDW Coeff of Dirk Plt Count MPV Immature Gran % (Auto) Neut % (Auto) Lymph % (Auto) [place] % (Auto) Eos % (Auto) Baso % (Auto) Neut # (Auto) Lymph # (Auto) [place] # (Auto) Eos # (Auto) Baso # (Auto) Immature Gran # (Auto) PT INR APTT PTT Ratio D-Dimer Sodium 124 L Potassium 3.9 Chloride 92 L Carbon Dioxide 23 Anion Gap 9.0 BUN 23 H Creatinine 1.67 H Est Cr Clr Drug Dosing Not Reportable Est GFR ( Amer) 51.1 Est GFR (Non-Af Amer) 44.1 BUN/Creatinine Ratio 13.5 Glucose 317 H* Calcium 9.5 Total Bilirubin 1.3 H AST 180 H ALT 238 H Alkaline Phosphatase 146 H D Troponin I < 0.015 NT-Pro-B Natriuret Pep 3427 H Total Protein 7.6 Albumin 2.4 L Globulin 5.2 H Albumin/Globulin Ratio 0.5 L Beta-Hydroxybutyric Acd 12.28 H Procalcitonin 0.42 SARS-CoV-2 (PCR) POSITIVE A* Influenza Type A (PCR) Negative Influenza Type B (PCR) Negative RSV (RT-PCR) Negative 08/22/21 08/22/21 09:00 09:00 WBC 6.02 RBC 4.31 L Hgb 13.7 L Hct 36.9 L MCV 85.6 MCH 31.8 MCHC 37.1 H RDW Std Deviation 38.9 RDW Coeff of Dirk 12.2 Plt Count 310 MPV 9.7 Immature Gran % (Auto) 0.2 Neut % (Auto) 84.1 Lymph % (Auto) 8.1 [place] % (Auto) 7.1 Eos % (Auto) 0.2 Baso % (Auto) 0.3 Neut # (Auto) 5.06 Lymph # (Auto) 0.49 L [place] # (Auto) 0.43 Eos # (Auto) 0.01 Baso # (Auto) 0.02 Immature Gran # (Auto) 0.01 PT 12.9 H INR 1.3 H APTT 29.2 PTT Ratio 1.1 D-Dimer 1290 H* Sodium Potassium Chloride Carbon Dioxide Anion Gap BUN Creatinine Est Cr Clr Drug Dosing Est GFR ( Amer) Est GFR (Non-Af Amer) BUN/Creatinine Ratio Glucose Calcium Total Bilirubin AST ALT Alkaline Phosphatase Troponin I NT-Pro-B Natriuret Pep Total Protein Albumin Globulin Albumin/Globulin Ratio Beta-Hydroxybutyric Acd Procalcitonin SARS-CoV-2 (PCR) Influenza Type A (PCR) Influenza Type B (PCR) RSV (RT-PCR) Diagnostic Findings Chest X-Ray 08/22/21 09:00 XR chest 1V portable CLINICAL HISTORY: Dyspnea. COMPARISON STUDY: 09/25/2019 TECHNIQUE: 1 view of the chest FINDINGS: Single frontal view of the chest demonstrates the cardiomediastinal silhouette to be within normal limits. Patchy interstitial and alveolar opacities are present bilaterally. The findings are most characteristic of a viral type pneumonitis. Covid 19 pneumonia should be excluded. There is no evidence for pleural effusion. There is no evidence for vascular congestion. There is no acute osseous pathology. IMPRESSION: Patchy interstitial and alveolar opacities bilaterally characteristic of a viral type pneumonitis and probable early Covid 19 pneumonia. ACT 112: Negative or not required by law. Electronically signed by: Chip Vera M.D. 08/22/2021 9:20 AM Chest CTA 08/22/21 09:58 CT angio chest PE protocol CLINICAL HISTORY: sob, + dimer . Evaluate for pulmonary embolus COMPARISON STUDY: Portable chest from 08/22/2021 CT DOSE: 563.08 mGycm TECHNIQUE: CT Angio of the chest was performed.followed by image post processing with coronal, and sagittal MIP reformats. Contrast Volume: Optiray 320, 120 ml FINDINGS: Vasculature: There is homogeneous perfusion of the pulmonary vasculature bilaterally. No intraluminal filling defects or evidence for pulmonary embolus is seen. Airway: The airway is clear. No endobronchial lesion is identified. Lungs: Extensive groundglass opacities are present throughout both lungs characteristic of a viral type pneumonitis and Covid 19 pneumonia. The lungs are otherwise clear of confluent alveolar opacities, air bronchograms or pulmonary nodules. Pleura: There is no evidence for pleural effusion. There is no evidence for pneumothorax. Mediastinum: There is no evidence for pathologic adenopathy. The heart size is within normal limits. The thoracic aorta is within normal limits. There is no evidence for pericardial effusion. Upper abdomen:The adrenal glands are normal bilaterally. Osseous structures: There is no acute osseous pathology. Impression: 1. No CTA evidence for pulmonary embolus. 2. Extensive groundglass opacities are present throughout both lungs characteristic of a viral type pneumonitis and Covid 19 pneumonia. ACT 112: Negative or not required by law. Electronically signed by: Chip Vera M.D. 08/22/2021 11:03 AM ECG Additional Comments: 22-AUG-2021 09:21:14 [facility]-EDSTAT ROUTINE RETRIEVAL Poor data quality, interpretation may be adversely affected Normal sinus rhythm Possible Left atrial enlargement Borderline ECG When compared with ECG of 20-SEP-2019 07:28, Nonspecific T wave abnormality no longer evident in Lateral leads QT has lengthened 25mm/s 10mm/mV 150Hz 9.0.9 12SL 241 ARI: 15 Referred by: REFERRED SELF Unconfirmed Vent. rate 98 BPM ME interval 152 ms QRS duration 94 ms QT/QTc 364/464 ms Code Status & VTE Plan Code Status DNR/DNI - discussed with the patient over the phone Supervising Physician Co-Signing Physician Notes Attending addendum: The patient was seen and examined in telemetry unit and in the COVID room He is not vaccinated and has been complaining of shortness of breath with cough for more than 10 days Denies any fever and or chills Denies any chest pain and/or palpitations He has been very noncompliant On examination Lying in bed comfortably His blood pressure was noted to be high at 171/95 Chest-decreased breath sounds both sides with minimal crackles at the bases Heart S1, S2 with a 2/6 ESM over precordium Abdomenbenign Extremitiesno edema CNSalert, awake and oriented x3 His admission labs, EKG and imaging studies reviewed Has COVID-pneumonia with nonvaccination status Has been started with intravenous dexamethasone and does not qualify for any remdesivir Noted to have moderately high LFTs-we will get hepatitis profile and ultrasound High blood pressure and uncontrolled diabetes-as he has been very noncompliant with medication Agree with assessment and plan as outlined above by Genet Salcedo
[2021-08-22] MEDS: INSULIN ASPART PER UNIT SC SCH ×3 (12:05→22:09)
[2021-08-22] MEDS ORDERED: GLUCOSE 40% GEL 15 GM TUBE PO PRN ×2 (12:30→13:15)
[2021-08-22] MEDS ORDERED: DEXTROSE 50% 50 ML SYRINGE IV PRN ×2 (12:30→13:15)
[2021-08-22] MEDS ORDERED: CARBOHYDRATES FOR HYPOGLYCEMIA PO PRN ×2 (12:30→13:15)
[2021-08-22] MEDS ORDERED: GLUCAGON FOR INJ 1 MG VIAL IM PRN (12:30)
[2021-08-22] MEDS ORDERED: GLUCOSE 10 TABS/TUBE PO PRN ×2 (12:30→13:15)
--- NOTE | 2021-08-22 12:45 | Electrocardiogram Report ---
Test Reason : Blood Pressure : / mmHG Vent. Rate : 098 BPM Atrial Rate : 098 BPM P-R Int : 152 ms QRS Dur : 094 ms QT Int : 364 ms P-R-T Axes : 049 012 031 degrees QTc Int : 464 ms Poor data quality, interpretation may be adversely affected Normal sinus rhythm Left atrial enlargement Nondiagnostic inferior Q waves Borderline ECG When compared with ECG of 20-SEP-2019 07:28, Nonspecific T wave abnormality no longer evident in Lateral leads Confirmed by Isauro Zee ([id number]) on 08/22/2021 12:45:18 PM Referred By: REFERRED SELF Confirmed By:Isauro Zee
[2021-08-22] MEDS ORDERED: ALBUTEROL HFA 8 GM INHALER INH SCH ×2 (13:00→15:00)
[2021-08-22] MEDS ORDERED: ACETAMINOPHEN 325 MG TAB PO PRN (13:15)
[2021-08-22] MEDS ORDERED: GLUCAGON FOR INJ 1 MG VIAL SQ PRN (13:15)
[2021-08-22] MEDS ORDERED: PHARMACY GLYCEMIC MGMT CONSULT PRN (13:15)
[2021-08-22] MEDS ORDERED: ONDANSETRON INJ 2 MG/ML 2 ML VIAL IV PRN (13:15)
[2021-08-22] MEDS ORDERED: INSULIN HUMAN NPH SC ONE ×2 (13:35)
--- NOTE | 2021-08-22 13:54 | Pharmacy Report ---
Pharmacy Glycemic Short Note 2 - Date of Service August 22, 2021 - Glycemic Short BSG Results (Last 24 hours): 08/22/21 08/22/21 09:00 11:59 Glucose 317 H* POC Glucose 306 H* OUTPATIENT ANTIDIABETIC REGIMEN: * N/A * HbA1c ordered for 08/23/21 ASSESSMENT: * DK is a 61 year old male with COVID-19 pneumonia with elevated BSG on presentation (317 mg/dL) * Patient is not currently taking any antidiabetes medications as an outpatient * Will likely require outpatient medication addition, however, per H&P patient is unwilling to take any new medications at time of discharge * Ordered dexamethasone 6 mg IV daily * Will cover first dose slightly conservatively (~0.3 unit/kg) in light of no A1c available PLAN FOR INPATIENT GLYCEMIC CONTROL: * Basal insulin * NPH 30 units SC daily with IV dexamethasone * Reassess in AM * Bolus insulin * NovoLog per scale ACHS or Q6hrs while NPO * Goal Range: Low 110 mg/dL - High 140 mg/dL * Correction Factor: 20 mg/dL/unit * Nutritional / Prandial insulin per carb ratio of 1 unit per 6 grams CHO consumed PLAN FOR DISCHARGE: * tbd * A1c pending * As noted above, patient reports unwillingness to take any new medications at time of discharge (will need to follow-up)
[2021-08-22] MEDS: SODIUM CHLORIDE 0.9% 1000ML 1,000 ML IV SCH ×2 (14:04→21:09)
[2021-08-22 15:16] LABS: Appearance Urine Clear (Clear); Bacteria Urine Automated Negative (Negative); Bilirubin Urine Negative (Negative); Blood Urine Negative (Negative); Color Urine Yellow; Glucose Urine UA 3+ (Negative); Ketones Urine 1+ (Negative); Leukocyte Esterase Urine Negative (Negative); Nitrite Urine Negative (Negative); Protein Urine 1+ (Negative); RBC Urine Automated 0-4 /hpf (0-4); Specific Gravity Urine 1.036 (1.000-1.030); Urobilinogen Urine Positive (Negative)
[2021-08-22] MEDS: amLODIPine BESYLATE 5 MG TAB PO SCH (16:24)
[2021-08-22] MEDS ORDERED: INSULIN ASPART PER UNIT SC SCH (16:30)
[2021-08-22] MEDS ORDERED: ALBUTEROL HFA 8 GM INHALER INH PRN (16:38)
[2021-08-22 17:15] LABS: Ferritin 976.1 ng/ml (8-388)
[2021-08-22] MEDS: ENOXAPARIN INJ 40 MG/0.4 ML SYR SQ SCH (21:04)
[2021-08-22] MEDS: guaiFENesin 600 MG TABCR PO SCH (21:06)
--- NOTE | 2021-08-22 21:41 | Ultrasound Report ---
US abdomen limited CLINICAL HISTORY: R/O cholecystitis TECHNIQUE: Multiple real-time sonographic images of the right upper quadrant were obtained. Comparison: None available at the time of this dictation. FINDINGS: The liver is diffusely echogenic in appearance with poor ultrasound penetration, with normal contour, which is consistent with fatty infiltration. No focal mass lesions are seen. No intrahepatic addy isis dilatation is seen. No gallstones or sludge are identified within the gallbladder. The gallbladd er wall is not thickened. There is no pericholecystic fluid present. A sonographic Queen's sign was not elicited by the doper. The common duct measures 0.4 cm in diameter at the level of the h epatic artery. The visualized portions of the pancreas appear normal. The right kidney shows normal echogenicity, cortical thickness and renal contour. The right kidney sh ows no evidence of hydronephrosis or mass. No ascites or free fluid is seen in Farmer's pouch. IMPRESSION: 1. No acute abnormalities and in particular no evidence of acute cholecystitis. 2. Hepatic steatosis. ACT 112: Negative or not required by law. Electronically signed by: Chito Lindquist M.D. 08/22/2021 9:39 PM
[2021-08-23] MEDS: INSULIN ASPART PER UNIT SC SCH ×6 (00:18→21:23)
[2021-08-23] MEDS: SODIUM CHLORIDE 0.9% 1000ML 1,000 ML IV SCH (05:09)
[2021-08-23] MEDS: allopurinoL 300 MG TAB PO SCH (08:31)
[2021-08-23] MEDS: ENOXAPARIN INJ 40 MG/0.4 ML SYR SQ SCH ×2 (08:31→19:56)
[2021-08-23] MEDS: dexAMETHasone 6 MG in SYRINGE 0 ML IV SCH (08:31)
[2021-08-23] MEDS: guaiFENesin 600 MG TABCR PO SCH ×2 (08:31→19:52)
[2021-08-23] MEDS: ASPIRIN 81 MG ECTAB PO SCH (08:31)
[2021-08-23] MEDS: amLODIPine BESYLATE 5 MG TAB PO SCH (08:31)
[2021-08-23 08:33] LABS: Hematocrit (blood only) 33.3 % (42-52); Hemoglobin 12.1 g/dL (14.0-18.0); Mean Corpuscular Hemoglobin 31.1 pg (25-34); Mean Corpuscular Hgb Conc 36.3 g/dL (32-36); Mean Corpuscular Volume 85.6 fL (80-100); Mean Platelet Volume 9.6 fL (7.4-10.4); Platelet Count 334 K/uL (130-400); RDW Coefficient of Variation 12.5 % (11.5-14.5); RDW Standard Deviation 39.2 fL (36.4-46.3); Red Blood Count 3.89 M/uL (4.7-6.1)
[2021-08-23] MEDS ORDERED: INSULIN HUMAN NPH SC SCH (09:00)
[2021-08-23 09:14] LABS: Bilirubin,Total 0.7 mg/dl (0.2-1.0); Calcium 8.5 mg/dl (8.5-10.1); Globulin 3.1 gm/dl (2.5-4.0); Total Protein 6.1 gm/dl (6.0-8.3)
[2021-08-23 09:17] LABS: Hepatitis B Surf Ag Rflx Conf Neg (Neg)
[2021-08-23 09:21] LABS: Estimated Average Glucose 252 mg/dl; Hemoglobin A1C 10.4 % (4.5-5.6)
[2021-08-23 09:46] LABS: BUN Creatinine Ratio 16.7 (10-20); Est GFR (Non-African American) 58.6 ml/min; Hepatitis C IgG 13Yrs+Old_Rflx Neg (Neg)
--- NOTE | 2021-08-23 13:08 | Pharmacy Report ---
Pharmacy Glycemic Short Note 2 - Date of Service August 23, 2021 - Glycemic Short BSG Results (Last 24 hours): 08/22/21 08/22/21 08/22/21 13:47 16:32 20:35 Glucose POC Glucose 221 H 276 H 248 H 08/22/21 08/23/21 08/23/21 23:55 04:15 07:18 Glucose 148 H POC Glucose 230 H 140 H 08/23/21 08/23/21 08:13 11:53 Glucose POC Glucose 156 H 219 H OUTPATIENT ANTIDIABETIC REGIMEN: * N/A * HbA1c: 10.4% (08/23/21) ASSESSMENT: 08/23 * BSGs elevated yesterday, 306, 276, 248, and 230 mg/dL * Fasting BSG of 156 mg/dL this morning * Will increase NPH today and tighten Novolog parameters * CDE consulted 08/22 * DK is a 61 year old male with COVID-19 pneumonia with elevated BSG on presentation (317 mg/dL) * Patient is not currently taking any antidiabetes medications as an outpatient * Will likely require outpatient medication addition, however, per H&P patient is unwilling to take any new medications at time of discharge * Ordered dexamethasone 6 mg IV daily * Will cover first dose slightly conservatively (~0.3 unit/kg) in light of no A1c available PLAN FOR INPATIENT GLYCEMIC CONTROL: * Basal insulin * NPH 35 units SC daily (~0.35 unit/kg) w IV dexamethasone * Plan to increase to 0.4 unit/kg tomorrow (i.e. 38 units) * Bolus insulin - tighten * NovoLog per scale ACHS or Q6hrs while NPO * Goal Range: Low 110 mg/dL - High 140 mg/dL * Correction Factor: 15 mg/dL/unit * Nutritional / Prandial insulin per carb ratio of 1 unit per 5 grams CHO consumed PLAN FOR DISCHARGE: * TBD * HbA1c of 10.4% suggests that this patient should be started on insulin and metformin at discharge * As noted above, patient reports unwillingness to take any new medications at time of discharge * Will follow inpatient insulin needs to develop regimen for discharge in case patient sentiment changes
--- NOTE | 2021-08-23 16:03 | Hospitalist Progress Note ---
Date of Service August 23, 2021 Assessment & Plan (1) COVID-19: (2) Pneumonia due to COVID-19 virus: (3) Acute respiratory failure with hypoxia: Plan: Acute respiratory failure with hypoxia COVID-19 pneumonia -CTA:No CTA evidence for pulmonary embolus. Extensive groundglass opacities are present throughout both lungs characteristic of a viral type pneumonitis and Covid 19 pneumonia. -- Symptom onset about 12 days prior to admission -- Unvaccinated state -Procalcitonin 0.42 -CRP: 34.57 Continue dexamethasone On Lovenox for DVT prophylaxis Pulmonary hygiene Continue supplemental oxygen as needed Encouraged to prone Lasix as needed Will recheck inflammatory markers tomorrow Transaminitis Likely secondary to COVID, hepatic steatosis -ABD USD:No acute abnormalities and in particular no evidence of acute cholecystitis. Hepatic steatosis. Monitor LFTs Avoid hepatotoxic agents as able Hyponatremia Likely secondary to dehydration Received IV fluids Sodium levels improved Monitor (4) CAD (coronary artery disease): Plan: - S/P stent in 2014, he follows with [facility] as an outpatient -Continue aspirin As per Prior hospitalist: He reports even if medication is ordered for any of his cardiac PMHx, he will not take it after leaving the hospital. (5) Hypertension: Plan: - Not on any antihypertensives Monitor (6) Dyslipidemia: Plan: Currently not on any medication LDL 119 (7) DM type 2 (diabetes mellitus, type 2): Plan: HbA1c 10.4 - ISS with accuchecks achs - pt does not take meds for DM as outpt and refuses such Manual Tester beam press operator consulted (8) CKD (chronic kidney disease), stage III: Plan: Baseline Cr 1.5/1.6 as outpatient. Monitor renal function Avoid nephrotoxic agents as able DVT px: lovenox SQ CODE STATUS: DNR/DNI Admission and Anticipated Discharge Date Admission Date: August 22, 2021 Subjective Patient is seen and examined at bedside States feeling better today Cough, shortness of breath better when compared to yesterday Currently on 14 L supplemental oxygen Denies any chest pain, dizziness, nausea, abdominal pain Offers no other complaints Review of Systems Review of Systems: All systems reviewed & are unremarkable except as noted in Subjective Physical Exam Physical Exam: Physical Exam: Vitals signs as noted above General Appearance:Moderately built and nourished, no apparent distress Head: normocephalic, Atraumatic Eyes: normal inspection, EOMI Neck: supple, Trachea midline Respiratory/Chest: Decreased breath sounds, minimal basal crackles, No accessory muscle use Cardiovascular: S1, S2, + murmur Abdomen/GI:Soft, Non tender, Bowel sounds present Extremities/Musculoskeletal:normal inspection, no edema Neurologic/Psych:AAOX3, grossly no focal neurological deficits Skin: normal color, warm Results & Data Results & Data ([facility]) Vital Signs (Past 12 Hours) Vital Signs Temp Pulse Resp BP Pulse Ox Pulse Ox Pulse Ox 08/23/21 15:41 36.6 C 93 H 18 141/78 H 94 08/23/21 15:00 96 08/23/21 12:33 36.3 C L 84 20 130/80 93 08/23/21 11:41 93 97 08/23/21 07:23 36.4 C L 79 18 155/80 H 90 08/23/21 04:32 36.4 C L 66 18 146/77 H 95 Pulse Ox 08/23/21 15:41 08/23/21 15:00 08/23/21 12:33 08/23/21 11:41 84 L 08/23/21 07:23 08/23/21 04:32 Laboratory Results Short CBC 08/23/21 Range/Units 07:18 WBC 5.60 (4.8-10.8) K/uL Hgb 12.1 L (14.0-18.0) g/dL Hct 33.3 L (42-52) % Plt Count 334 (130-400) K/uL BMP 08/23/21 07:18 Sodium 132 L Potassium 4.0 Chloride 104 Carbon Dioxide 20 L BUN 22 Creatinine 1.32 Glucose 148 H Calcium 8.5 Liver Function 08/23/21 Range/Units 07:18 Total Bilirubin 0.7 (0.2-1.0) mg/dl AST 104 H (13-39) U/L ALT 147 H (7-52) U/L Alkaline Phosphatase 104 (34-104) U/L Albumin 3.0 L (3.4-5.0) gm/dl (1) CAD (coronary artery disease) Associated angina: without angina Coronary Disease-Associated Artery/Lesion type: unspecified vessel or lesion type [place] vs. transplanted heart: [place] heart Qualified Code(s): I25.10 - Atherosclerotic heart disease of [place] coronary artery without angina pectoris (2) DM type 2 (diabetes mellitus, type 2) Diabetes mellitus complication status: with hyperglycemia Diabetes mellitus filler leaf cutter long insulin use: without half-way use Qualified Code(s): E11.65 - Type 2 diabetes mellitus with hyperglycemia (3) CKD (chronic kidney disease), stage III Chronic kidney disease stage 3 subtype: unspecified whether 3a or 3b Qualified Code(s): N18.30 - Chronic kidney disease, stage 3 unspecified
[2021-08-24 03:47] LABS: Hepatitis A Antibody IgM NON-REACTIVE (NON-REACTIVE); Hepatitis B Core Antibody IgM NON-REACTIVE (NON-REACTIVE)
[2021-08-24] MEDS: INSULIN ASPART PER UNIT SC SCH ×4 (08:07→21:04)
[2021-08-24 08:51] LABS: Hematocrit (blood only) 33.6 % (42-52); Hemoglobin 12.2 g/dL (14.0-18.0); Mean Corpuscular Hgb Conc 36.3 g/dL (32-36); Mean Corpuscular Volume 85.5 fL (80-100); Mean Platelet Volume 9.7 fL (7.4-10.4); Platelet Count 448 K/uL (130-400); RDW Coefficient of Variation 12.3 % (11.5-14.5); RDW Standard Deviation 38.7 fL (36.4-46.3); Red Blood Count 3.93 M/uL (4.7-6.1); White Blood Count 6.92 K/uL (4.8-10.8)
[2021-08-24 09:45] LABS: BUN Creatinine Ratio 17.5 (10-20); Bilirubin,Total 0.6 mg/dl (0.2-1.0); Calcium 8.5 mg/dl (8.5-10.1); Creatinine Clr Calc Pharmacy 77.5 ml/min; Est GFR (African American) 71.9 ml/min; Globulin 3.1 gm/dl (2.5-4.0); Potassium 3.3 mmol/L (3.5-5.1); Total Protein 6.1 gm/dl (6.0-8.3)
[2021-08-24] MEDS: dexAMETHasone 6 MG in SYRINGE 0 ML IV SCH (10:20)
[2021-08-24] MEDS: amLODIPine BESYLATE 5 MG TAB PO SCH (10:20)
[2021-08-24] MEDS: ASPIRIN 81 MG ECTAB PO SCH (10:20)
[2021-08-24] MEDS: ENOXAPARIN INJ 40 MG/0.4 ML SYR SQ SCH ×2 (10:20→20:24)
[2021-08-24] MEDS: guaiFENesin 600 MG TABCR PO SCH ×2 (10:21→20:24)
[2021-08-24] MEDS: INSULIN HUMAN NPH SC SCH (10:21)
[2021-08-24] MEDS ORDERED: FUROSEMIDE INJ 20 MG/2 ML VIAL IV ONE (10:49)
[2021-08-24] MEDS ORDERED: POTASSIUM CHLORIDE CRTAB 20 MEQ TABCR PO ONE ×2 (10:50→16:00)
[2021-08-24] MEDS: allopurinoL 300 MG TAB PO SCH (11:35)
--- NOTE | 2021-08-24 11:36 | Pharmacy Report ---
Pharmacy Glycemic Short Note 2 - Date of Service August 24, 2021 - Glycemic Short BSG Results (Last 24 hours): 08/23/21 08/23/21 08/23/21 11:53 16:07 19:39 Glucose POC Glucose 219 H 253 H 331 H* 08/24/21 08/24/21 07:44 07:46 Glucose 68 L POC Glucose 74 OUTPATIENT ANTIDIABETIC REGIMEN: * N/A * HbA1c: 10.4% (08/23/21) ASSESSMENT: 08/24/21: * Pt remains on IV dexamethasone. * BSGs were significantly elevated yesterday evening, but pt was hypoglycemic this morning. * NPH increased slightly this morning and Novolog parameters tightened to provide better coverage throughout the day, when steroid-induced hyperglycemia is most prevalent. Novolog loosened significantly for HS, to avoid further episodes of fasting hypoglycemia. 08/23 * BSGs elevated yesterday, 306, 276, 248, and 230 mg/dL * Fasting BSG of 156 mg/dL this morning * Will increase NPH today and tighten Novolog parameters * CDE consulted 08/22 * DK is a 61 year old male with COVID-19 pneumonia with elevated BSG on presentation (317 mg/dL) * Patient is not currently taking any antidiabetes medications as an outpatient * Will likely require outpatient medication addition, however, per H&P patient is unwilling to take any new medications at time of discharge * Ordered dexamethasone 6 mg IV daily * Will cover first dose slightly conservatively (~0.3 unit/kg) in light of no A1c available PLAN FOR INPATIENT GLYCEMIC CONTROL: * Basal insulin * NPH 38 units SC daily (~0.4 unit/kg) w IV dexamethasone * Bolus insulin - tighten * NovoLog per scale AC or Q6hrs while NPO * Goal Range: Low 110 mg/dL - High 140 mg/dL * Correction Factor: 15 mg/dL/unit (loosen to 30 mg/dL/unit at HS) * Nutritional / Prandial insulin per carb ratio of 1 unit per 4 grams CHO consumed (no carb coverage at HS) PLAN FOR DISCHARGE: * TBD * HbA1c of 10.4% suggests that this patient should be started on insulin and metformin at discharge * As noted above, patient reports unwillingness to take any new medications at time of discharge * Will follow inpatient insulin needs to develop regimen for discharge in case patient sentiment changes
--- NOTE | 2021-08-24 17:28 | Hospitalist Progress Note ---
Date of Service August 24, 2021 Assessment & Plan (1) COVID-19: (2) Pneumonia due to COVID-19 virus: (3) Acute respiratory failure with hypoxia: Plan: Acute respiratory failure with hypoxia COVID-19 pneumonia -CTA:No CTA evidence for pulmonary embolus. Extensive groundglass opacities are present throughout both lungs characteristic of a viral type pneumonitis and Covid 19 pneumonia. -- Symptom onset about 12 days prior to admission -- Unvaccinated state -Procalcitonin 0.42>0.19 -CRP: 34.57>9.9 Continue dexamethasone On Lovenox for DVT prophylaxis Pulmonary hygiene Continue supplemental oxygen as needed Encouraged to prone Lasix as needed Currently requiring 5 to 6 L supplemental oxygen CRP trending down Normal procalcitonin Will give 20 mg Lasix today Transaminitis Likely secondary to COVID, hepatic steatosis -ABD USD:No acute abnormalities and in particular no evidence of acute cholecystitis. Hepatic steatosis. Monitor LFTs Avoid hepatotoxic agents as able Hyponatremia Likely secondary to dehydration Received IV fluids Sodium levels improved Monitor (4) CAD (coronary artery disease): Plan: - S/P stent in 2014, he follows with [facility] as an outpatient -Continue aspirin As per Prior hospitalist: He reports even if medication is ordered for any of his cardiac PMHx, he will not take it after leaving the hospital. (5) Hypertension: Plan: - Not on any antihypertensives Monitor (6) Dyslipidemia: Plan: Currently not on any medication LDL 119 (7) DM type 2 (diabetes mellitus, type 2): Plan: HbA1c 10.4 - ISS with accuchecks achs - pt does not take meds for DM as outpt and refuses such Credit Products Officer conservation educator consulted (8) CKD (chronic kidney disease), stage III: Plan: Baseline Cr 1.5/1.6 as outpatient. Monitor renal function Avoid nephrotoxic agents as able DVT px: lovenox SQ CODE STATUS: DNR/DNI Admission and Anticipated Discharge Date Admission Date: August 22, 2021 Subjective Patient is seen and examined at bedside States having generalized weakness Also reports minimal dizziness with ambulation Otherwise feels well today Requiring less supplemental oxygen today Denies any significant cough Also denies any chest pain, dyspnea, dizziness, nausea, abdominal pain Review of Systems Review of Systems: All systems reviewed & are unremarkable except as noted in Subjective Physical Exam Physical Exam: Physical Exam: Vitals signs as noted above General Appearance:Moderately built and nourished, no apparent distress Head: normocephalic, Atraumatic Eyes: normal inspection, EOMI Neck: supple, Trachea midline Respiratory/Chest: Decreased breath sounds, + basal crackles, No accessory muscle use Cardiovascular: S1, S2, + murmur Abdomen/GI:Soft, Non tender, Bowel sounds present Extremities/Musculoskeletal:normal inspection, no edema Neurologic/Psych:AAOX3, grossly no focal neurological deficits Skin: normal color, warm Results & Data Results & Data ([facility]) Vital Signs (Past 12 Hours) Vital Signs Temp Pulse Resp BP BP Pulse Ox 08/24/21 15:09 36.7 C 90 19 145/79 H 93 08/24/21 11:47 91 08/24/21 11:46 36.6 C 82 21 155/87 H 91 08/24/21 10:30 94 08/24/21 07:45 36.8 C 83 19 144/84 H 96 Laboratory Results Short CBC 08/24/21 Range/Units 07:46 WBC 6.92 (4.8-10.8) K/uL Hgb 12.2 L (14.0-18.0) g/dL Hct 33.6 L (42-52) % Plt Count 448 H (130-400) K/uL BMP 08/24/21 07:46 Sodium 137 Potassium 3.3 L Chloride 106 Carbon Dioxide 21 BUN 22 Creatinine 1.26 Glucose 68 L Calcium 8.5 Liver Function 08/24/21 Range/Units 07:46 Total Bilirubin 0.6 (0.2-1.0) mg/dl AST 163 H (13-39) U/L ALT 206 H (7-52) U/L Alkaline Phosphatase 94 (34-104) U/L Albumin 3.0 L (3.4-5.0) gm/dl (1) CAD (coronary artery disease) Associated angina: without angina Coronary Disease-Associated Artery/Lesion type: unspecified vessel or lesion type [place] vs. transplanted heart: [place] heart Qualified Code(s): I25.10 - Atherosclerotic heart disease of [place] coronary artery without angina pectoris (2) DM type 2 (diabetes mellitus, type 2) Diabetes mellitus complication status: with hyperglycemia Diabetes mellitus tank terminal gauger insulin use: without senior care use Qualified Code(s): E11.65 - Type 2 diabetes mellitus with hyperglycemia (3) CKD (chronic kidney disease), stage III Chronic kidney disease stage 3 subtype: unspecified whether 3a or 3b Qual ified Code(s): N18.30 - Chronic kidney disease, stage 3 unspecified
[2021-08-25 07:25] LABS: Hematocrit (blood only) 32.5 % (42-52); Hemoglobin 11.8 g/dL (14.0-18.0); Mean Corpuscular Hemoglobin 31.1 pg (25-34); Mean Corpuscular Hgb Conc 36.3 g/dL (32-36); Mean Corpuscular Volume 85.5 fL (80-100); Mean Platelet Volume 9.6 fL (7.4-10.4); Platelet Count 433 K/uL (130-400); RDW Coefficient of Variation 12.4 % (11.5-14.5); RDW Standard Deviation 38.5 fL (36.4-46.3); White Blood Count 3.67 K/uL (4.8-10.8)
[2021-08-25] MEDS: amLODIPine BESYLATE 5 MG TAB PO SCH (07:44)
[2021-08-25] MEDS: dexAMETHasone 6 MG in SYRINGE 0 ML IV SCH (07:45)
[2021-08-25] MEDS: guaiFENesin 600 MG TABCR PO SCH ×2 (07:45→20:42)
[2021-08-25] MEDS: ASPIRIN 81 MG ECTAB PO SCH (07:46)
[2021-08-25] MEDS: ENOXAPARIN INJ 40 MG/0.4 ML SYR SQ SCH ×2 (07:47→20:38)
[2021-08-25] MEDS: allopurinoL 300 MG TAB PO SCH (07:47)
[2021-08-25 07:50] LABS: Albumin Globulin Ratio 0.9 (0.9-2); Albumin Level 2.9 gm/dl (3.4-5.0); BUN Creatinine Ratio 18.5 (10-20); Bilirubin,Total 0.6 mg/dl (0.2-1.0); Calcium 8.2 mg/dl (8.5-10.1); Creatinine Clr Calc Pharmacy 82.1 ml/min; Est GFR (Non-African American) 66.5 ml/min; Globulin 3.2 gm/dl (2.5-4.0); Potassium 3.4 mmol/L (3.5-5.1); Total Protein 6.1 gm/dl (6.0-8.3)
[2021-08-25] MEDS: INSULIN HUMAN NPH SC SCH (08:45)
[2021-08-25] MEDS: INSULIN ASPART PER UNIT SC SCH ×4 (08:45→20:17)
[2021-08-25] MEDS ORDERED: POTASSIUM CHLORIDE CRTAB 20 MEQ TABCR PO ONE (09:47)
[2021-08-25] MEDS ORDERED: POTASSIUM CHLORIDE CRTAB 20 MEQ TABCR PO SCH (09:47)
--- NOTE | 2021-08-25 10:52 | Pharmacy Report ---
Pharmacy Glycemic Short Note 2 - Date of Service August 25, 2021 - Glycemic Short BSG Results (Last 24 hours): 08/24/21 08/24/21 08/24/21 11:49 16:27 19:53 Glucose POC Glucose 107 H 90 181 H 08/25/21 08/25/21 06:31 07:46 Glucose 110 H POC Glucose 115 H OUTPATIENT ANTIDIABETIC REGIMEN: * N/A * HbA1c: 10.4% (08/23/21) ASSESSMENT: 08/25: * BSGs well controlled yesterday. Received 38 units NPH + 23 units Novolog (TDD = 61 units) * Remains on 6 mg of IV dexamethasone. No changes in insulin regimen necessary today. * According to CDE, patient agreeable to insulin + metformin at discharge. * Should transition to Lantus prior to discharge but continuing NPH for now given good control of steroid-induced hyperglycemia. 08/24: * Pt remains on IV dexamethasone. * BSGs were significantly elevated yesterday evening, but pt was hypoglycemic this morning. * NPH increased slightly this morning and Novolog parameters tightened to provide better coverage throughout the day, when steroid-induced hyperglycemia is most prevalent. Novolog loosened significantly for HS, to avoid further episodes of fasting hypoglycemia. 08/23: * BSGs elevated yesterday, 306, 276, 248, and 230 mg/dL * Fasting BSG of 156 mg/dL this morning * Will increase NPH today and tighten Novolog parameters * CDE consulted PLAN FOR INPATIENT GLYCEMIC CONTROL: * Basal insulin * NPH 38 units SC daily (~0.4 unit/kg) w/ IV dexamethasone * Bolus insulin * NovoLog per scale AC or Q6hrs while NPO * Goal Range: Low 110 mg/dL - High 140 mg/dL * Correction Factor: 15 mg/dL/unit (loosen to 30 mg/dL/unit at HS) * Nutritional / Prandial insulin per carb ratio of 1 unit per 4 grams CHO consumed (no carb coverage at HS) PLAN FOR DISCHARGE: * HbA1c of 10.4% suggests that this patient should be started on insulin and metformin at discharge * According to CDE note from 08/23/21: "Discussed thoughts on adding diabetes medications post-discharge. Different options, risks/benefits reviewed. Pt is agreeable to once daily basal insulin and restarting of Metformin." * Start metformin 500 mg ER once daily with dinner. Continue to titrate metformin dosing upwards as recommended. Dosage increases should be made in increments of 500 mg weekly, up to 2,000 mg/day PO, given in divided doses. Doses above 2000 mg/day may be better tolerated if divided and given 3 times per day with meals. Max: 2,550 mg/day PO, in divided doses. B12 supplementation may be necessary with regional intermodal truck driver metformin. * Lantus dosing to be determined based on continued steroid use.
--- NOTE | 2021-08-25 16:14 | Hospitalist Progress Note ---
Date of Service August 25, 2021 Assessment & Plan (1) COVID-19: (2) Pneumonia due to COVID-19 virus: (3) Acute respiratory failure with hypoxia: Plan: Acute respiratory failure with hypoxia COVID-19 pneumonia -CTA:No CTA evidence for pulmonary embolus. Extensive groundglass opacities are present throughout both lungs characteristic of a viral type pneumonitis and Covid 19 pneumonia. -- Symptom onset about 12 days prior to admission -- Unvaccinated state -Procalcitonin 0.42>0.19 -CRP: 34.57>9.9 Continue dexamethasone On Lovenox for DVT prophylaxis Pulmonary hygiene Continue supplemental oxygen as needed Encouraged to prone Lasix as needed Goal improving Currently on 2 L supplemental oxygen Plan for 2 step tomorrow Transaminitis Likely secondary to COVID, hepatic steatosis -ABD USD:No acute abnormalities and in particular no evidence of acute cholecystitis. Hepatic steatosis. Monitor LFTs Avoid hepatotoxic agents as able Hyponatremia Likely secondary to dehydration Received IV fluids Monitor sodium levels (4) CAD (coronary artery disease): Plan: - S/P stent in 2014, he follows with [facility] as an outpatient -Continue aspirin As per Prior hospitalist: He reports even if medication is ordered for any of his cardiac PMHx, he will not take it after leaving the hospital. (5) Hypertension: Plan: Currently refusing antihypertensives Monitor (6) Dyslipidemia: Plan: Currently not on any medication LDL 119 (7) DM type 2 (diabetes mellitus, type 2): Plan: HbA1c 10.4 - ISS with accuchecks achs - pt does not take meds for DM as outpt and refuses such Game Designer biodiesel product manager consulted (8) CKD (chronic kidney disease), stage III: Plan: Baseline Cr 1.5/1.6 as outpatient. Monitor renal function Avoid nephrotoxic agents as able DVT px: lovenox SQ CODE STATUS: DNR/DNI Admission and Anticipated Discharge Date Admission Date: August 22, 2021 Subjective Patient is seen and examined at bedside States feeling well today Offers no complaints Currently on 2 L supplemental oxygen Cough much improved Denies any chest pain, dyspnea, dizziness, nausea, abdominal pain Review of Systems Review of Systems: All systems reviewed & are unremarkable except as noted in Subjective Physical Exam Physical Exam: Physical Exam: Vitals signs as noted above General Appearance:Moderately built and nourished, no apparent distress Head: normocephalic, Atraumatic Eyes: normal inspection, EOMI Neck: supple, Trachea midline Respiratory/Chest: Decreased breath sounds, + Right basal crackles Cardiovascular: S1, S2, + murmur Abdomen/GI:Soft, Non tender, Bowel sounds present Extremities/Musculoskeletal:normal inspection, no edema Neurologic/Psych:AAOX3, grossly no focal neurological deficits Skin: normal color, warm Results & Data Results & Data ([facility]) Vital Signs (Past 12 Hours) Vital Signs Temp Pulse Pulse Resp BP BP Pulse Ox 08/25/21 15:32 36.3 C L 71 20 136/84 93 08/25/21 12:10 36.8 C 77 18 125/79 94 08/25/21 07:38 36.5 C 74 18 163/87 H 92 08/25/21 05:09 36.6 C 73 18 144/78 H 90 Laboratory Results Short CBC 08/25/21 Range/Units 06:31 WBC 3.67 L (4.8-10.8) K/uL Hgb 11.8 L (14.0-18.0) g/dL Hct 32.5 L (42-52) % Plt Count 433 H (130-400) K/uL BMP 08/25/21 06:31 Sodium 132 L Potassium 3.4 L Chloride 101 Carbon Dioxide 20 L BUN 22 Creatinine 1.19 Glucose 110 H Calcium 8.2 L Liver Function 08/25/21 Range/Units 06:31 Total Bilirubin 0.6 (0.2-1.0) mg/dl AST 116 H (13-39) U/L ALT 186 H (7-52) U/L Alkaline Phosphatase 83 (34-104) U/L Albumin 2.9 L (3.4-5.0) gm/dl (1) CAD (coronary artery disease) Associated angina: without angina Coronary Disease-Associated Artery/Lesion type: unspecified vessel or lesion type [place] vs. transplanted heart: [place] heart Qualified Code(s): I25.10 - Atherosclerotic heart disease of [place] coronary artery without angina pectoris (2) DM type 2 (diabetes mellitus, type 2) Diabetes mellitus complication status: with hyperglycemia Diabetes mellitus ocean transportation intermediary insulin use: without care home use Qualified Code(s): E11.65 - Type 2 diabetes mellitus with hyperglycemia (3) CKD (chronic kidney disease), stage III Chronic kidney disease stage 3 subtype: unspecified whether 3a or 3b Qualified Code(s): N18.30 - Chronic kidney disease, stage 3 unspecified
[2021-08-25] MEDS: CHOLECALCIFEROL 5,000 UNITS 125 MCG TAB PO SCH (17:44)
[2021-08-26 07:18] LABS: Albumin Globulin Ratio 0.9 (0.9-2); Albumin Level 3.2 gm/dl (3.4-5.0); BUN Creatinine Ratio 17.4 (10-20); Bilirubin,Total 0.6 mg/dl (0.2-1.0); Creatinine Clr Calc Pharmacy 80.7 ml/min; Est GFR (African American) 75.5 ml/min; Est GFR (Non-African American) 65.1 ml/min; Globulin 3.5 gm/dl (2.5-4.0); Potassium 3.8 mmol/L (3.5-5.1); Total Protein 6.7 gm/dl (6.0-8.3)
[2021-08-26] MEDS: INSULIN ASPART PER UNIT SC SCH ×2 (08:50→12:56)
[2021-08-26] MEDS: guaiFENesin 600 MG TABCR PO SCH (08:56)
[2021-08-26] MEDS: dexAMETHasone 6 MG in SYRINGE 0 ML IV SCH (08:57)
[2021-08-26] MEDS: CHOLECALCIFEROL 5,000 UNITS 125 MCG TAB PO SCH (08:57)
[2021-08-26] MEDS: ASPIRIN 81 MG ECTAB PO SCH (08:57)
[2021-08-26] MEDS: amLODIPine BESYLATE 5 MG TAB PO SCH (08:57)
[2021-08-26] MEDS: allopurinoL 300 MG TAB PO SCH (08:57)
[2021-08-26] MEDS: ENOXAPARIN INJ 40 MG/0.4 ML SYR SQ SCH (08:58)
[2021-08-26] MEDS: INSULIN HUMAN NPH SC SCH (09:09)
--- NOTE | 2021-08-26 14:32 | Pharmacy Report ---
Pharmacy Glycemic Short Note 2 - Date of Service August 26, 2021 - Glycemic Short BSG Results (Last 24 hours): 08/25/21 08/25/21 08/26/21 16:57 20:09 06:02 Glucose 67 L POC Glucose 99 108 H 08/26/21 08/26/21 07:30 11:22 Glucose POC Glucose 75 155 H OUTPATIENT ANTIDIABETIC REGIMEN: * N/A * HbA1c: 10.4% (08/23/21) ASSESSMENT: 08/26: * BSGs well controlled, pt likely DC today w/o steroids - recommended to Dr Diaz to DC on Lantus 20 units SQ Daily starting tomorrow morning, as there is concern for non-compliance on f/u visits. * Patient received NPH and Dexamethasone this morning. 08/25: * BSGs well controlled yesterday. Received 38 units NPH + 23 units Novolog (TDD = 61 units) * Remains on 6 mg of IV dexamethasone. No changes in insulin regimen necessary today. * According to CDE, patient agreeable to insulin + metformin at discharge. * Should transition to Lantus prior to discharge but continuing NPH for now given good control of steroid-induced hyperglycemia. 08/24: * Pt remains on IV dexamethasone. * BSGs were significantly elevated yesterday evening, but pt was hypoglycemic this morning. * NPH increased slightly this morning and Novolog parameters tightened to provide better coverage throughout the day, when steroid-induced hyperglycemia is most prevalent. Novolog loosened significantly for HS, to avoid further episodes of fasting hypoglycemia. 08/23: * BSGs elevated yesterday, 306, 276, 248, and 230 mg/dL * Fasting BSG of 156 mg/dL this morning * Will increase NPH today and tighten Novolog parameters * CDE consulted PLAN FOR INPATIENT GLYCEMIC CONTROL: * Basal insulin * NPH 38 units SC daily (~0.4 unit/kg) w/ IV dexamethasone * Bolus insulin * NovoLog per scale AC or Q6hrs while NPO * Goal Range: Low 110 mg/dL - High 140 mg/dL * Correction Factor: 15 mg/dL/unit (loosen to 30 mg/dL/unit at HS) * Nutritional / Prandial insulin per carb ratio of 1 unit per 4 grams CHO consumed (no carb coverage at HS) PLAN FOR DISCHARGE: * HbA1c of 10.4% suggests that this patient should be started on insulin and metformin at discharge * According to CDE note from 08/23/21: "Discussed thoughts on adding diabetes medications post-discharge. Different options, risks/benefits reviewed. Pt is agreeable to once daily basal insulin and restarting of Metformin." * Start metformin 500 mg ER once daily with dinner. Continue to titrate metformin dosing upwards as recommended. Dosage increases should be made in increments of 500 mg weekly, up to 2,000 mg/day PO, given in divided doses. Doses above 2000 mg/day may be better tolerated if divided and given 3 times per day with meals. Max: 2,550 mg/day PO, in divided doses. B12 supplementation may be necessary with intermediate accountant metformin. * Lantus 20 units SQ Daily and follow up with outpatient provider
--- NOTE | 2021-08-26 14:50 | Hospitalist Progress Note ---
Date of Service August 26, 2021 Assessment & Plan (1) COVID-19: (2) Pneumonia due to COVID-19 virus: (3) Acute respiratory failure with hypoxia: Plan: Acute respiratory failure with hypoxia COVID-19 pneumonia -CTA:No CTA evidence for pulmonary embolus. Extensive groundglass opacities are present throughout both lungs characteristic of a viral type pneumonitis and Covid 19 pneumonia. -- Symptom onset about 12 days prior to admission -- Unvaccinated state -Procalcitonin 0.42>0.19 -CRP: 34.57>9.9 Continue dexamethasone On Lovenox for DVT prophylaxis Pulmonary hygiene Continue supplemental oxygen as needed Encouraged to prone Lasix as needed Currently on room air 2 step: 2 liters with activity Transaminitis Likely secondary to COVID, hepatic steatosis -ABD USD:No acute abnormalities and in particular no evidence of acute cholecystitis. Hepatic steatosis. Monitor LFTs Avoid hepatotoxic agents as able Advised to follow-up with gastroenterology as outpatient Hyponatremia Likely secondary to dehydration Received IV fluids Monitor sodium levels Resolved (4) CAD (coronary artery disease): Plan: - S/P stent in 2014, he follows with [facility] as an outpatient -Continue aspirin As per Prior hospitalist: He reports even if medication is ordered for any of his cardiac PMHx, he will not take it after leaving the hospital. (5) Hypertension: Plan: Currently refusing antihypertensives Monitor (6) Dyslipidemia: Plan: Currently not on any medication LDL 119 (7) DM type 2 (diabetes mellitus, type 2): Plan: HbA1c 10.4 - ISS with accuchecks achs - pt does not take meds for DM as outpt and refuses such Diesel Powerplant Mechanic Helper staff development educator consulted (8) CKD (chronic kidney disease), stage III: Plan: Baseline Cr 1.5/1.6 as outpatient. Monitor renal function Avoid nephrotoxic agents as able DVT px: lovenox SQ CODE STATUS: DNR/DNI Admission and Anticipated Discharge Date Admission Date: August 22, 2021 Subjective Patient is seen and examined at bedside Doing well today Had 2 step earlier today Offers no complaints Currently saturating well on room air Cough resolved Denies any chest pain, dyspnea, dizziness, nausea, abdominal pain Review of Systems Review of Systems: All systems reviewed & are unremarkable except as noted in Subjective Physical Exam Physical Exam: Physical Exam: Vitals signs as noted above General Appearance:Moderately built and nourished, no apparent distress Head: normocephalic, Atraumatic Eyes: normal inspection, EOMI Neck: supple, Trachea midline Respiratory/Chest: Decreased breath sounds, CTA Cardiovascular: S1, S2, + murmur Abdomen/GI:Soft, Non tender, Bowel sounds present Extremities/Musculoskeletal:normal inspection, no edema Neurologic/Psych:AAOX3, grossly no focal neurological deficits Skin: normal color, warm Results & Data Results & Data ([facility]) Vital Signs (Past 12 Hours) Vital Signs Temp Pulse Pulse Pulse Pulse Pulse Pulse 08/26/21 11:21 36.5 C 80 08/26/21 11:07 111 H 129 H 104 H 101 H 08/26/21 10:00 74 08/26/21 07:35 08/26/21 07:24 36.6 C 83 08/26/21 04:38 36.6 C 77 Resp Resp Resp Resp BP Pulse Ox Pulse Ox 08/26/21 11:21 18 130/80 93 08/26/21 11:07 20 22 20 92 08/26/21 10:00 08/26/21 07:35 144/82 H 08/26/21 07:24 22 154/96 H 91 08/26/21 04:38 19 161/92 H 92 Pulse Ox Pulse Ox Pulse Ox 08/26/21 11:21 08/26/21 11:07 86 L 91 92 08/26/21 10:00 08/26/21 07:35 08/26/21 07:24 08/26/21 04:38 Laboratory Results [facility] 08/26/21 06:02 Sodium 135 L Potassium 3.8 Chloride 101 Carbon Dioxide 24 BUN 21 Creatinine 1.21 Glucose 67 L Calcium 9.0 Liver Function 08/26/21 Range/Units 06:02 Total Bilirubin 0.6 (0.2-1.0) mg/dl AST 145 H (13-39) U/L ALT 209 H (7-52) U/L Alkaline Phosphatase 85 (34-104) U/L Albumin 3.2 L (3.4-5.0) gm/dl (1) DM type 2 (diabetes mellitus, type 2) Diabetes mellitus complication status: with hyperglycemia Diabetes mellitus long term care phlebotomist insulin use: without long term care phlebotomist use Qualified Code(s): E11.65 - Type 2 diabetes mellitus with hyperglycemia (2) CKD (chronic kidney disease), stage III Chronic kidney disease stage 3 subtype: unspecified whether 3a or 3b Qualified Code(s): N18.30 - Chronic kidney disease, stage 3 unspecified (3) CAD (coronary artery disease) Associated angina: without angina Coronary Disease-Associated Artery/Lesion type: unspecified vessel or lesion type [place] vs. transplanted heart: [place] heart Qualified Code(s): I25.10 - Atherosclerotic heart disease of [place] coronary artery without angina pectoris
--- NOTE | 2021-08-26 18:08 | Discharge Summary ---
Date of Service August 26, 2021 Admission HPI Per Admitting Provider This is a 61 yo M with PMHx of DM II, HLD, CAD with 1 stent, fatty liver, and gout who presents to the ER with worsening shortness of breath. Respiratory symptoms including dry cough, fever, body aches and pain, poor appetite, which improved for a few days, then again worsened. Overall have been going on for 12+ days. Has used mucinex and benadryl, tyenol and advil. He is now feeling more short of breath in the past few days. He lives at home by himself, but has had an employee whom has been dropping off food/liz for him. 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 He is unvaccinated against COVID-19 and is positive here in the ER. If he needed intubated, he would not agree to it, and would not want resuscitated in the event his heart stopped. Pt states that he does not believe in treatment by medications or much of science. He is willing to stay in the hospital currently, however will not take medications if he is prescribed new things for his chronic medical history on discharge. Pt admits to being a former smoker and smoked for 6 years when he was in his 30s, denies any other pulmonary medical history. He does not need to wear O2. Very rarely uses alcohol, and previously used marijuana but no longer does. He denies routine physical activity. Admission Exam Per Admitting Provider On examination Lying in bed comfortably His blood pressure was noted to be high at 171/95 Chest-decreased breath sounds both sides with minimal crackles at the bases Heart S1, S2 with a 2/6 ESM over precordium Abdomenbenign Extremitiesno edema CNSalert, awake and oriented x3 Principal Diagnosis Acute respiratory failure with hypoxia COVID-19 pneumonia Hyponatremia--Resolved Diabetes Mellitus Discharge Data Allergies Allergy/AdvReac Type Severity Reaction Status Date / Time No Known Allergies Allergy Verified 08/22/21 11:24 Consultations 08/22/21 11:27 ED Decision to Admit Stat Ordered Studies 08/22/21 09:58 CT angio chest PE protocol Stat 08/22/21 13:34 US abdomen limited Routine Diabetes Follow up Diabetes Follow-up Needed for HgbA1c >9% Hospital Course (1) COVID-19: (2) Pneumonia due to COVID-19 virus: (3) Acute respiratory failure with hypoxia: Acute respiratory failure with hypoxia COVID-19 pneumonia -CTA:No CTA evidence for pulmonary embolus. Extensive groundglass opacities are present throughout both lungs characteristic of a viral type pneumonitis and Covid 19 pneumonia. -- Symptom onset about 12 days prior to admission -- Unvaccinated state -Procalcitonin 0.42>0.19 -CRP: 34.57>9.9 Continue dexamethasone On Lovenox for DVT prophylaxis Pulmonary hygiene Continue supplemental oxygen as needed Encouraged to prone Lasix as needed Currently on room air 2 step: 2 liters with activity Transaminitis Likely secondary to COVID, hepatic steatosis -ABD USD:No acute abnormalities and in particular no evidence of acute cholecystitis. Hepatic steatosis. Monitor LFTs Avoid hepatotoxic agents as able Advised to follow-up with gastroenterology as outpatient Hyponatremia Likely secondary to dehydration Received IV fluids Monitor sodium levels Resolved (4) CAD (coronary artery disease): - S/P stent in 2014, he follows with [facility] as an outpatient -Continue aspirin As per Prior hospitalist: He reports even if medication is ordered for any of his cardiac PMHx, he will not take it after leaving the hospital. (5) Hypertension: Currently refusing antihypertensives Monitor (6) Dyslipidemia: Currently not on any medication LDL 119 (7) DM type 2 (diabetes mellitus, type 2): HbA1c 10.4 - ISS with accuchecks achs - pt does not take meds for DM as outpt and refuses such [employer] early childhood special educator consulted (8) CKD (chronic kidney disease), stage III: Baseline Cr 1.5/1.6 as outpatient. Monitor renal function Avoid nephrotoxic agents as able DVT px: lovenox SQ CODE STATUS: DNR/DNI Total Time Total Time Spent Total Time Spent (In Minutes): 43 minutes Discharge Plan Discharge Items Patient Disposition: Home - Self-Care Reason For Visit: COVID-19 PNEUMONIA,ACUTE RESPIRATORY FAILURE WITH Discharge Diagnosis: Acute respiratory failure with hypoxia COVID-19 pneumonia Hyponatremia--Resolved Diabetes Mellitus Activity: Per Instructions section Exercise/Sports: Wait until after follow-up appointment Non-emergency contact: Primary Care Provider Call non-emergency contact if: you have any medication questions, your symptoms worsen, your pain is concerning for you and you have a fever Follow-up/Referrals: Timi Lord MD [Primary Care Provider] - Diet: Carb Consistent or DM2 and Heart Healthy Addtl Attending Provider Instructions: Follow-up with your primary care physician on 2021 at 10:45 AM as scheduled -- Use oxygen 2 L via nasal nasal cannula with activity as advised. -- Discussed with your physician for further adjustment of your diabetic medications as advised. Seek immediate medical attention if your symptoms reoccur or worsen Please take all medications as instructed on discharge list below. Please call if you have any questions or problems. You can reach a [facility] hospitalist on duty at [facility] 24 hours a day by calling [phone] Home Isolation COVID-19 Instructions The following information about Home Isolation is from the CDC Website: https://www.cdc.gov/coronavirus/2019-ncov/hcp/bdtyybnl-dlaobad-arexiz.html Stay home except to get medical care People who are mildly ill with COVID-19 are able to isolate at home during their illness. You should restrict activities outside your home, except for getting medical care. Do not go to work, school, or public areas. Avoid using public transportation, ride-sharing, or taxis. Separate yourself from other people and animals in your home People: As much as possible, you should stay in a specific room and away from other people in your home. Also, you should use a separate bathroom, if available. Animals: You should restrict contact with pets and other animals while you are sick with COVID-19, just like you would around other people. Although there have not been reports of pets or other animals becoming sick with COVID-19, it is still recommended that people sick with COVID-19 limit contact with animals until more information is known about the virus. When possible, have another member of your household care for your animals while you are sick. If you are sick with COVID-19, avoid contact with your pet, including petting, snuggling, being kissed or licked, and sharing food. If you must care for your pet or be around animals while you are sick, wash your hands before and after you interact with pets and wear a face mask. Call ahead before visiting your doctor If you have a medical appointment, call the healthcare provider and tell them that you have or may have COVID-19. This will help the healthcare providers office take steps to keep other people from getting infected or exposed. Wear a face mask You should wear a face mask when you are around other people (e.g., sharing a room or vehicle) or pets and before you enter a healthcare providers office. If you are not able to wear a face mask (for example, because it causes trouble breathing), then people who live with you should not stay in the same room with you, or they should wear a face mask if they enter your room. Cover your coughs and sneezes Cover your mouth and nose with a tissue when you cough or sneeze. Throw used tissues in a lined trash can. Immediately wash your hands with soap and water for at least 20 seconds or, if soap and water are not available, clean your hands with an alcohol-based hand welder fitter helper that contains at least 60% alcohol. Clean your hands often Wash your hands often with soap and water for at least 20 seconds, especially after blowing your nose, coughing, or sneezing; going to the bathroom; and before eating or preparing food. If soap and water are not readily available, use an alcohol-based hand welder fitter helper with at least 60% alcohol, covering all surfaces of your hands and rubbing them together until they feel dry. Soap and water are the best option if hands are visibly dirty. Avoid touching your eyes, nose, and mouth with unwashed hands. Avoid sharing personal household items You should not share dishes, drinking glasses, cups, eating utensils, towels, or bedding with other people or pets in your home. After using these items, they should be washed thoroughly with soap and water. Clean all high-touch surfaces everyday High touch surfaces include counters, tabletops, doorknobs, bathroom fixtures, toilets, phones, keyboards, tablets, and bedside tables. Also, clean any surfaces that may have blood, stool, or body fluids on them. Use a household cleaning spray or wipe, according to the label instructions. Labels contain instructions for safe and effective use of the cleaning product including precautions you should take when applying the product, such as wearing gloves and making sure you have good ventilation during use of the product. Monitor your symptoms Seek prompt medical attention if your illness is worsening (e.g., difficulty breathing).Beforeseeking care, call your healthcare provider and tell them that you have, or are being evaluated for, COVID-19. Put on a face mask before you enter the facility. These steps will help the healthcare providers office to keep other people in the office or waiting room from getting infected or exposed. Ask your healthcare provider to call the local or state health department. Persons who are placed under active monitoring or facilitated self- monitoring should follow instructions provided by their local health department or occupational health professionals, as appropriate. When working with your local health department check their available hours. If you have a medical emergency and need to call 911, notify the dispatch personnel that you have, or are being evaluated for COVID-19. If possible, put on a face mask before emergency medical services arrive. Discontinuing home isolation Patients with confirmed COVID-19 should remain under home isolation precautions until the risk of secondary transmission to others is thought to be low. The decision to discontinue home isolation precautions should be made on a uacp-ve-phqi basis, in consultation with healthcare providers and critical access hospital and [facility] health departments. Coronavirus disease 2019 (COVID-19) is a virus that causes a respiratory illness. It is caused by a coronavirus called 2019 novel coronavirus (2019- nCoV). There are many types of coronavirus. Coronaviruses are a very common cause of bronchitis. They may sometimes cause lung infection(pneumonia). Symptoms can range from mild to severe respiratory illness. These viruses are also foundin some animals. COVID-19 was first found in people in [facility], in late 2019. In 2020, several cases of COVID-19 have been confirmed in the [place] Public health officials are working to find the source. How the virus spreads is not yet fully known. It may be spread through droplets of fluid that a person coughs or sneezes into the air. It may be spread if you touch a surface with virus on it, such as a handle or object, and then touch your mouth. What are the symptoms of COVID-19? Some people have no symptoms or mild symptoms. Symptoms may appear 2 to 14 days after contact with the virus. Symptoms can include: Fever Coughing Trouble breathing What are possible complications from COVID-19? In many cases, this virus can cause infection (pneumonia) in both lungs. In some cases, this can cause . How is COVID-19 diagnosed? Your healthcare provider will ask about your symptoms. He or she will also ask about your recent travel and contact with sick people. Testing for the virus is only done through the CDC. If yourhealthcare provider thinks you may have COVID- 19, he or she will work with your local health department and the CDC on testing. Follow all instructions from your healthcare provider. COVID-19 is diagnosed by: Nasal and throat swab. A cotton-tipped swab is wiped inside your nose or throat. This is done to check for viruses in your nasal mucus. Sputum culture. A small sample of mucus coughed from your lungs (sputum) is collected if you have a cough. It is checked for the virus. How is COVID-19 treated? There is currently no medicine to treat the virus. Treatment is done to help your body while it fights the virus. This is known as supportive care. Supportive care may include: Pain medicine. These include acetaminophen and ibuprofen. They are used to help ease pain and reduce fever. Bed rest. This helps your body fight the illness. For severe illness, you may need to stay in the hospital. Care during severe ill ness may include: IV (intravenous) fluids.These are given through a vein to help keep your body hydrated. Oxygen. Supplemental oxygen or ventilation with a breathing machine (ventilator) may be given. This is done to keep enough oxygen in your body. Are you at risk for COVID-19? If youve been to a place where people have been sick with this virus, you are at risk for infection. You are at risk if you: Recently traveled to an affected area Had contact with a sick person who recently traveled to this area Had contact with a person who was diagnosed with COVID-19 How can COVID-19 be prevented? There is no vaccine yet. The best prevention is to not have contact with the virus. The CDC advises that people should not travel to areas where there are COVID-19 outbreaks right now for any reason that is not urgent. To help prevent spreading the infection, wash your hands often, or use an alcohol-basedhand welder fitter helper. If you are in an area with COVID-19: Wash your hands often. Or use an alcohol-based hand welder fitter helper often. Only touch your eyes, nose, or mouth with clean hands. Dont have contact with people who are sick. Follow local instructions about being in public. For example, you may be told to not use public transport for a period of time. Stay away from markets that have live or animals. Wash your hands after touching any animals. Don't touch animals that may be sick. Dont share eating or drinking tools with sick people. Dont kiss someone who is sick. Clean surfaces often with disinfectant. If you were in an area with COVID-19 in the last 14 days: Call your healthcare provider. He or she can talk with local health staff to see what action may be needed. Follow all instructions from your provider. Take your temperature every morning and evening for at least 14 days. This is to check for fever. Keep a record of the readings. Keep watch for symptoms of the virus. Tell your provider right away if you have symptoms. If you were in an area with COVID-19 and have a fever or other symptoms: Dont panic. Keep in mind that other illnesses can cause similar symptoms. Stay away from work, school, and public places. Limit physical contact with family members. Don't kiss anyone or share eating or drinking utensils. Clean surfaces you touch with disinfectant. This is to help prevent the virus from spreading. Call your healthcare provider. Explain that you have been exposed to COVID-19 and have symptoms. Do this before going to any hospital. Wait for instructions. Keep in mind that healthcare staff may wear protective equipment such as masks, gowns, gloves, and eye protection. You may be put in a separate room. This is to prevent the possible virus from spreading. Tell the healthcare staff about recent travel. This includes local travel on public transport. Staff may need to find other people you have been in contact with. Follow all instructions the healthcare staff give you. If you have been diagnosed with COVID-19 Follow all instructions from your healthcare provider. Dont leave your home, except to get medical care. Call your healthcare providers office before going. They can prepare and give you instructions. This will help prevent the virus from spreading. Dont go to work, school, or public areas. Dont use public transport or taxis. Stay away from other people in your home. Have them wear face masks around you. Dont share household items or food. Wear a face mask if you can. This includes at home or in a medical facility. Cover your face with a tissue when you cough or sneeze. Throw the tissue away. Wash your hands. Wash your hands often. Caregivers should: Follow all instructions from healthcare staff. Wear a face mask and protective clothing as advised. Wash hands often. Keep track of the sick persons symptoms. Clean surfaces, fabrics, and laundry thoroughly. Keep other people away from the sick person. When to call your healthcare provider Call your healthcare provider: If youve recently traveled and have symptoms If you have been diagnosed with COVID-19 and your symptoms are worse To learn more To find out more about COVID-19, visit the CDC website at www.cdc.gov/coronavirus/2019-ncov/index.html. [employer]. [address] [place] [address]. All rights reserved. This information is not intended as a substitute for professional medical care. Always follow your healthcare professional's instructions. This information has been adapted from [employer] Pending Studies at Discharge: No Stand-Alone Forms: My [facility] [employer], Smoking Cessation Medications and DC Order Prescriptions: New amlodipine [Norvasc] 5 mg Tablet 5 mg PO QAM Qty: 30 RF: 0 Lantus Solostar U-100 Insulin 100 unit/mL (3 mL) insulin pen 20 unit subcut QAM Qty: 3 RF: 0 (DME) pen needle,diabetic, disp unit 32 gauge x 5/32" needle See Rx Instructions .Route Qty: 100 RF: 0 metformin 500 mg tablet extended release 24hr 500 mg PO HS Qty: 30 RF: 1 Continued cholecalciferol (vitamin D3) 5,000 unit capsule 5,000 units PO QAM RF: 0 aspirin 81 mg Tablet,Delayed Release (Dr/Ec) 81 mg PO QAM RF: 0 vitamin A palmitate 10,000 unit Capsule 10,000 unit PO QAM RF: 0 allopurinol 300 mg tablet 300 mg PO QAM RF: 0 Discharge Orders: Discharge Order (Routine); Ordered 08/26/21 Ordered By: Onel Lua/Other Patient Handouts: How to Check Your Blood Sugar, ED Using an Injection Pen Admission Data Admit Date/Time: 08/22/21 11:43 Attending Provider: Onel Diaz Admit Provider: Juan Carlos Salcedo Primary Care Provider: Timi Lord Other Providers: Juan Carlos Salcedo Other Interventions: Discharge Summary Assessment (RN) Last Done: 08/26/21 16:31
[2021-08-28 11:01] LABS: C Reactive Protein 34.57 mg/dl (0-0.5)
[2021-08-28 11:37] LABS: C Reactive Protein 9.94 mg/dl (0-0.5)
== END 2021-08-26 17:38 | disposition home or self-care (01) | DRG 177 ==
LOC: ED 08:36 → SUATTDRO 11:43 → 2S 11:43

== ENCOUNTER 2022-10-05 06:45 | Observation (INO) ==
[2022-10-05] MEDS ORDERED: HEPARIN (PORCINE) 1000 UNIT/ML 10 ML (CATH LAB USE ONLY) ONE ×2 (07:11→09:54)
[2022-10-05] MEDS ORDERED: MIDAZOLAM HCL 1 MG/ML 2ML VIAL ONE ×2 (07:11→09:56)
[2022-10-05] MEDS ORDERED: niCARdipine HCL INJ 2.5 MG/ML 10 ML AMP ONE (07:11)
[2022-10-05] MEDS ORDERED: fentaNYL citrate 100 MCG/2 ML VIAL ONE (07:12)
[2022-10-05] MEDS ORDERED: NITROGLYCERIN/D5W 100MCG/ML 20ML SYR ONE (07:12)
[2022-10-05] MEDS ORDERED: ASPIRIN 81 MG CHEW ONE (08:52)
--- NOTE | 2022-10-05 08:58 | History & Physical Bridge Note ---
Date of Service October 05, 2022 History & Physical Bridge Note I have examined the patient, reviewed the History & Physical and in the interval since the performance of the History & Physical I have noted the following changes of clinical significance: no changes noted angina. Medication non-compliance, high risk stress findings. Plan cath +/- PCI as indicated.
--- NOTE | 2022-10-05 08:59 | Pre Anesthesia Assessment ---
Date of Service October 05, 2022 Pre Sedation Assessment Vital Signs Temp Pulse Resp BP Pulse Ox O2 Del Method 10/05/22 07:04 36.6 C 74 20 200/120 H 97 Room Air Cardiovascular Additional Comments: RRR, grade 2/6 SM, S4 no edema Respiratory normal respiratory effort, lungs clear to auscultation Pre-Sedation Airway Assessment Smoking Status: Former smoker Hx Sleep Apnea: No Short, Thick Neck: Yes Thyromental Distance: > or= 3.5 Finger Breadths Oral Cavity: + WNL Mallampati Class: III ASA: ASA2 NPO Status Date of Last Intake of Fluids: 10/04/22 Time of Last Intake of Fluids: 20:00 Date of Last Intake of Solid Food: 10/04/22 Time of Last Intake of Solid Foods: 17:00 Notes The planned sedation has been discussed with the patient. Informed Consent was obtained. I have identified the patient, determined the appropriateness of sedation and have assessed the patient immediately prior to the procedure. All medicine(s) and interventions are by my order.
[2022-10-05] MEDS ORDERED: hydrALAZINE HCL 20 MG/ML VIAL ONE (09:14)
[2022-10-05] MEDS ORDERED: ADENOSINE IV SOLN 3 MG/ML 20 ML VIAL IV ONE ×2 (09:43)
[2022-10-05] MEDS ORDERED: TICAGRELOR 90 MG TAB ONE (10:01)
[2022-10-05] MEDS ORDERED: LIDOCAINE 1% LOCAL 20 ML VIAL ONE (10:26)
--- NOTE | 2022-10-05 10:42 | Post Anesthesia Assessment ---
Date of Service October 05, 2022 Post Sedation Assessment Vital Signs Temp Pulse Resp BP Pulse Ox O2 Del Method 10/05/22 10:20 89 18 176/98 H 98 Room Air 10/05/22 07:04 36.6 C 74 20 200/120 H 97 Room Air Recovery Score Activity: Moves 4 extremities Respiration: Deep Breath/Cough Circulation: +/-20% PreAnes Value Consciousness: Fully Awake Oxygen Saturation: > 92% On Room Air Post Anesthesia Score: 10 Discharge Sedation Level of Care: Fast Track Phase II Post Sedation Plan On clinical assessment, the patient appears to have tolerated the sedation without complications. Patient is recovering as anticipated. Patient will continue to be monitored by nursing and may be discharged when sedation discharge criteria are met per below protocol. Upon Completions of procedure up to 15 minutes continue every 5 minute vital signs and the P.A.R. score; then discharge to a Phase I or Fast Track to Phase II per the following guidelines: * Discharge Patient to appropriate Phase II area if PAR is 8 or greater or return to pre- procedure baseline. The post - procedure orders will be as directed. * If PAR score is less than 8 or not return to pre-procedure baseline then patient will follow Phase I monitoring till PAR is reached for Phase II. The Phase I may be done in procedure room or may call to secure a Phase I area. * If naloxone or flumazenil are used for reversal, hold in Phase I for continued monitoring from when last reversal dose was given for a minimum of 60 minutes or longer pending the nurse and/or physician discretion of patient condition before discharge to Phase II. Please call the Sedation Physician to re-evaluate and complete post-note for discharge to Phase II area. Do NOT discharge from procedure sedation or Phase 1 until post- sedation eval uation note is complete by procedure /sedation MD Sedation Discharge Instructions to be given to the patient at discharge to home. [facility] Procedure Codes (Charges) Indication for Procedure Indication for procedure: angina abnormal stress Sedation/Anesthesia Procedure 1: Sedation/Anesthesia: 24728 Mod Sedation by the same physician;Init15 Min Child Age 5 & Up (initial 15 min ) Total Sedation Time (minutes): 52 Procedure 2: Sedation/Anesthesia: 81610 Mod Sedation by the same physician; Ea [id number] Minutes (37 additional) Total Sedation Time (minutes): 52
[2022-10-05] MEDS ORDERED: DEXTROSE 50% 50 ML SYRINGE IV PRN (11:02)
[2022-10-05] MEDS ORDERED: GLUCAGON FOR INJ 1 MG VIAL SQ PRN (11:02)
[2022-10-05] MEDS ORDERED: GLUCOSE 40% GEL 15 GM TUBE PO PRN (11:02)
[2022-10-05] MEDS ORDERED: GLUCOSE 10 TAB/TUBE PO PRN (11:02)
[2022-10-05] MEDS ORDERED: CARBOHYDRATES FOR HYPOGLYCEMIA PO PRN (11:02)
--- NOTE | 2022-10-05 11:22 | Consultation ---
Date of Consultation October 05, 2022 Assessment & Plan (1) S/P cardiac catheterization: (2) S/P drug eluting coronary stent placement: (3) CAD (coronary artery disease): (4) Abnormal stress echocardiogram: (5) DM type 2 (diabetes mellitus, type 2): (6) CKD (chronic kidney disease), stage III: (7) Hypertension: (8) Dyslipidemia: Plan This is a 62-year-old male who has significant past medical history of CAD, moderate aortic stenosis, T2DM, HTN, HLD not on statin therapy due to refusal, gout, CKD stage III with baseline creatinine 1.6 who presents for urgent cardiac catheterization secondary to failed outpatient stress test of significance pt had 2 separate events that occurred 2 days in a row where he ate a large meal and then exerted himself and developed substernal chest pressure and tightness. Status post cardiac catheterization with drug-eluting stent placement x2 to LAD CAD History of previous PCI to RCA x1 MARTHA in 2013 Moderate aortic stenosis Patient admitted to PCU Cardiac cath performed by Dr. Lundberg We have been consulted for medical Continue ASA, metoprolol and Brilinta per cardiology Patient refuses to take statin therapy Currently chest pain-free, radial band per protocol Give gentle IV fluid x1 L in setting of CKD Consult [facility] cardiology T2DM Last A1c 06/2022 6.9 Hold metformin Lantus/NovoLog per protocol HLD Despite evidence of hyperlipidemia patient refuses statin therapy Defer to cardiology CKD stage III Baseline creatinine 1.6 Avoid nephrotoxic agents Gentle IV fluid status post cardiac cath BMP in the a.m. Dispo: Admitted to PCU likely DC to home when cleared by cardiology Full code PCP: Dr. Chamorro Patient was seen and examined in collaboration with, Dr. Palomino, please see addendum Thank you for this consultation. We will follow the patient with you during their hospital stay. You can reach a member of the [facility] Hospitalist Team 04/03 via hospitalist role on tiger text. A total of 60 minutes were spent with greater than 50% of that time face to face with the patient, personally reviewing all current laboratories, imaging studies, past medication reconciliation, outpatient chart review, and discussion with specialists to collaborate care for the patient with attending. Please see attending documentation for corrections and/or additions. History of Present Illness Requesting Physician: Dr. Hope Reason for Consultation: Post cardiac cath medical management. Attending Physician: Michael Hope MD, PhD History of Present Illness This is a 62-year-old male who has significant past medical history of CAD, moderate aortic stenosis, T2DM, HTN, HLD not on statin therapy due to refusal, gout, CKD stage III with baseline creatinine 1.6 who presents for urgent cardiac catheterization secondary to failed outpatient stress test of significance pt had 2 separate events that occurred 2 days in a row where he ate a large meal and then exerted himself and developed substernal chest pressure and tightness. He had a previous cath and stent placed in 2013. He has history of acute inferior myocardial infarction and underwent emergent cardiac cath revealing a total mid RCA occlusion and MARTHA was deployed to mid RCA. He saw his editorial cartoonist Dr. White who referred pt to stress echo which was abnormal. It was felt to represent myocardial ischemia. He underwent cardiac cath today and had 2 MARTHA stents placed. Post operatively he feels well. He denies f/c/s, chest pain, sob, cough, uri, n/v/d, abd pain, change in bowel or urinary habits. He offers no acute concerns and states, "I could go home right now." Prior hx of smoking in which he quit 15-16 years ago. He would smoke 1ppd for ~ 6 years. Patient stress echo on 10/01/2022 revealed wall motion abnormalities now present in the basal septal and basal inferior whyte at rest with moderate aortic stenosis. During stress echocardiogram there was change with ECG evidence of stress- induced myocardial ischemia. Patient's medical records and cardiology notes from Dr. White reviewed. Allergies Allergy/AdvReac Type Severity Reaction Status Date / Time amoxicillin [From Augmentin] Allergy Unknown Verified 10/05/22 11:01 clavulanic acid Allergy Unknown Verified 10/05/22 11:01 [From Augmentin] sulfamethoxazole Allergy Unknown Verified 10/05/22 11:01 [From Bactrim] trimethoprim [From Bactrim] Allergy Unknown Verified 10/05/22 11:01 Home Medications Medication Instructions Recorded Confirmed Type cholecalciferol (vitamin D3) 125 5,000 units PO QAM 03/02/19 10/05/22 History mcg (5,000 unit) capsule aspirin 81 mg tablet,delayed 81 mg PO QAM 09/20/19 10/05/22 History release vitamin A palmitate 3,000 mcg 10,000 unit PO QAM 09/20/19 10/05/22 History (10,000 unit) capsule allopurinol 300 mg tablet 300 mg PO QAM 08/22/21 10/05/22 History metformin 500 mg tablet,extended 500 mg PO BID 04/05/22 10/05/22 History release 24hr multivitamin 1 tab PO DAILY 04/05/22 10/05/22 History metoprolol succinate 25 mg 25 mg PO DAILY #90 tabs 09/06/22 10/05/22 Rx tablet,extended release 24 hr nitroglycerin 0.4 mg sublingual 0.4 mg sublingual Q5M PRN chest 09/10/22 10/05/22 Rx tablet pain #30 tabs Patient History Medical History Acute respiratory failure with hypoxia Antiplatelet or antithrombotic long-term use CAD (coronary artery disease) 06/2014: MARTHA to mid RCA Chest pain, atypical CKD (chronic kidney disease), stage III COVID-19 DM type 2 (diabetes mellitus, type 2) Dyslipidemia Fatty liver Gout History of herpes simplex infection History of orthostatic hypotension Hypertension Influenza B Male erectile disorder of organic origin Near syncope Pneumonia due to COVID-19 virus Polyarthritis Surgical History History of ankle surgery right done in 1997 due to fracture Hx of heart artery stent Family History Denies family history of Heart disease Social History (Updated 10/05/22 @ 11:21 by Shilpi Lopez PA-C) Smoking Status: Former smoker Tobacco Type: Cigarettes Hx Alcohol Use: Yes (very rare) Alcohol type: beer Hx Substance Use: No Preferred Language: Korean Communication Ability: Effective Brood Hatchery Manager Required: No Beliefs That Will Affect Care: None marital status: Single Current Living Situation: Alone Feels Safe at Home: No Is there a partner from a previous relationship who is making you feel unsafe now?: No Any Concerns about Your Family Situation: No Would You Like to Speak to Someone About Your Situation: No Assistive Devices: None Review of Systems Review of Systems: All systems reviewed & are unremarkable except as noted in HPI & below Physical Exam Physical Exam: Please refer to Dr. Palomino addendum for physical exam findings. Results & Data ([facility]) Vital Signs (Past 12 Hours) Vital Signs Temp Pulse Resp BP BP Pulse Ox O2 Del Method 10/05/22 11:01 93 H 18 160/98 H 98 Room Air 10/05/22 10:45 93 H 18 178/90 H 99 Room Air 10/05/22 10:20 89 18 176/98 H 98 Room Air 10/05/22 07:04 36.6 C 74 20 200/120 H 97 Room Air Diagnostic Findings Cardiac cath report reviewed, patient received 2 stents approximate LAD Medications Administered Current Inpatient Medications Aspirin (Aspirin 81 Mg Ectab) 81 mg PO QAM JENNIFER Stop: 11/05/22 08:59 Dextrose (Dextrose 50% 50 Ml Syringe) 25 - 50 ml IV UD PRN; Protocol PRN Reason: Hypoglycemia Protocol Stop: 11/04/22 11:01 Glucagon (Glucagon For Inj 1 Mg Vial) 1 mg SQ UD PRN; Protocol PRN Reason: Hypoglycemia Protocol Stop: 11/04/22 11:01 Glucose (Glucose 10 Tab/Tube) 4 - 8 tab PO UD PRN; Protocol PRN Reason: Hypoglycemia Treatment Stop: 11/04/22 11:01 Glucose (Glucose 40% Gel 15 Gm Tube) 15 - 30 gm PO UD PRN; Protocol PRN Reason: Hypoglycemia Protocol Stop: 11/04/22 11:01 Insulin Aspart (Insulin Aspart Per Unit) 0 units SC ACHS JENNIFER Stop: 11/04/22 11:29 Insulin Glargine (Lantus Per Unit Charge) 0 - 10 units SQ BID JENNIFER Stop: 11/04/22 20:59 Metoprolol Succinate (Metoprolol Succ 25mg Ext Rel Tab) 25 mg PO QAM JENNIFER Stop: 11/04/22 10:29 Miscellaneous (Carbohydrates For Hypoglycemia ) 15 - 30 gm PO UD PRN PRN Reason: Hypoglycemia Protocol Stop: 11/04/22 11:01 Ticagrelor (Ticagrelor 90 Mg Tab) 90 mg PO BID [facility] Stop: 11/04/22 20:59 (3) CAD (coronary artery disease) Associated angina: without angina Coronary Disease-Associated Artery/Lesion type: unspecified vessel or lesion type [place] vs. transplanted heart: [place] heart Qualified Code(s): I25.10 - Atherosclerotic heart disease of [place] coronary artery without angina pectoris (5) DM type 2 (diabetes mellitus, type 2) Diabetes mellitus complication status: with hyperglycemia Diabetes mellitus jail insulin use: without jail use Qualified Code(s): E11.65 - Type 2 diabetes mellitus with hyperglycemia (6) CKD (chronic kidney disease), stage III Chronic kidney disease stage 3 subtype: unspecified whether 3a or 3b Qualified Code(s): N18.30 - Chronic kidney disease, stage 3 unspecified
[2022-10-05] MEDS ORDERED: SODIUM CHLORIDE 0.9% 1000ML 1,000 ML IV SCH (11:30)
[2022-10-05] MEDS: METOPROLOL SUCC 25MG EXT REL TAB PO SCH (12:14)
--- NOTE | 2022-10-05 12:35 | Cardiac Catheterization ---
ACC Data: [facility] Cardiac Status Clinical evaluation leading to the procedure CAD Presenation: Positive Stress Test and Stable angina Anginal Classification: CCS III Heart Failure: No Cardiogenic Shock within 24 Hours: No Cardiac Arrest within 24 Hours: No Imaging Studies Past 6 Months: Yes Stress Studies Past 6 Months: Yes Stress Echocardiogram: Yes - Positive Coronary Anatomy Dominant: Right Left Main (% Stenosis): Normal (Mild) LAD (% Stenosis): Ostial (50 to 60%), Proximal (60 to 70% with calcium), Mid (50 to 70%) and Distal (40 to 50% early, 70 to 80% at the apex) D1 (% Stenosis): Normal (Small caliber diffuse) D2 (% Stenosis): Normal (Small caliber diffuse disease) D3 (% Stenosis): Normal (Medium caliber and branching. Diffuse moderate disease) Circumflex (% Stenosis): Proximal (30%), Mid (Long eccentric 50 to 70%) and Distal (Mild luminal irregularities) OM1 (% Stenosis): Normal (Large and branching. Mild diffuse disease.) OM2 (% Stenosis): Proximal (Mild less than 30 to 40%) and Normal RCA (% Stenosis): Proximal (Long eccentric calcified at least 50%), Mid (Prior stent patent. 20% in-stent restenosis) and Distal (At the distal edge of the mid RCA stent there is a very focal 95 to 99% stenosis. This could also represent a small branch vessel.) R PDA (% Stenosis): Normal (No significant disease) R PL1 (% Stenosis): Normal (No significant disease) Diagnostic Physicians Name: Michael Hope MD, PhD Closure Device Percutaneous Entry Location: Radial Closure Device: Radial Band Recommendations: PCI without planned CABG PCI Indication: + Stress Test Lesion Segment Name: Proximal and mid LAD Culprit Artery: Yes Stenosis Prior to Rx (%): 60 to 70% proximal, 50 to 70% mid Chronic Total Occlusion: No FFR: Yes (0.76) Ratio: greater than 0.75% Pre-Procedure KARYN Flow: 3 Previously Treated Lesion: No Lesion Complexity: High/C Lesion Length (mm): 12 mm, 8 mm Thrombus Present: No Bifurcation Lesion: Yes Guidewire Across Lesion: Yes Intraprocedure Events Significant Disection: No Perforation: No Cardiac Cath Procedure Full Procedure Date October 05, 2022 Pre-Procedure Diagnosis Pre-Procedure Diagnosis: Angina and Positive Stress Test AUC Score AUC Score: 07 Post-Procedure Diagnosis Post-Procedure Diagnosis: Severe CAD Procedure(s) Performed Procedure(s) Performed: Coronary Angiography, Drug Eluting Stent and Fractional Flow [employer] Michael Hope MD, PhD Estimated Blood Loss Estimated Blood Loss: Less than 10 mL Medication(s) Medication(s): Fentanyl, Heparin, Lidocaine 1%, Nicardipine, Nitroglycerin and Versed Summary of Findings Brief description: Patient was brought to the cardiac catheterization suite where he was shaved and prepped in a sterile fashion. Sedated using IV Versed and fentanyl. Soft tissues of the right wrist were anesthetized using 2 mL of 1% Xylocaine. The right radial artery was accessed using a modified Seldinger technique and a 6 Stateless radial artery glide sheath was placed. All catheters were advanced and exchanged over a 0.035 J-tip wire. Patient was provided anticoagulation with IV heparin and antispasmodics including nicardipine and nitroglycerin. Left and right coronary angiography were performed in orthogonal views with a 5 Stateless [place] 4 diagnostic catheter. Diagnostic catheters were removed. We next proceeded with FFR analysis of the LAD lesions. ACT was checked and additional IV heparin was provided to maintain ACT at a therapeutic level. A 6 Stateless [place] 3.5 guide catheter was used to engage the left main coronary artery. Through this, a BMW universal guidewire is advanced and positioned distally in the LAD. The Navvus catheter was advanced and positioned with its transducer just distal to the guide catheter tip. After normal saline flush, the pressures were equalized. The catheter was then advanced distal to the mid LAD lesion. Adenosine was then infused at 140 mcg/kg/min for 2 minutes. Peak FFR was obtained. The catheter was then pulled back and the pressure ratio monitored. We then left it at a position just distal to the ostial LAD lesion and noted the FFR with adenosine running for an additional 2 minutes. The adenosine was then discontinued. The Navvus catheter was removed. Decision was made to proceed with PCI of the proximal and mid LAD lesions. Each lesion was predilated using a 2.5 x 12 mm PTCA balloon. Predilatation was performed to nominal pressure. The PTCA balloon was then removed. A 2.5 x 15 mm miguel angel point drug-eluting stent was then delivered across the mid LAD lesion. This was deployed at 11 shannan. Stent balloon was removed and a 2.5 x 15 mm miguel angel point drug-eluting stent was then advanced and positioned across the proximal lesion where it was deployed at 13 shannan. The stent balloon was then removed and credit professional angiography was performed. The guidewire was removed and final angiographic evaluation was performed. The guide catheter was then removed. Patient was provided 180 mg of p.o. Brilinta and additional heparin to bridge until Brilinta uptake. The radial artery sheath was removed and hemostasis was obtained using the TR band. Patient was returned to the recovery area in stable condition. This ended the case. Coronary angiography findings: LMT: Large-caliber vessel bifurcating into LAD and circumflex. No more than mild luminal irregularities. LAD: This is large caliber and transapical. There is an ostial focal stenosis appearing 50 to 60% narrowed. There is diffuse mild disease than a proximal calcified 60 to 70% occurring at the level of the first diagonal. Mid LAD has mild disease with some tortuosity and then there is a 50 to 70% narrowing at the level of the second diagonal. The early distal LAD has a focal 40 to 50% narrowing in the vessel travels distally becoming more tortuous with mild disease until it reaches the apical portion where there is a focal 70 to 80% stenosis. The vessel is too small for PCI at this level. LCx: Large caliber and nondominant. Travels in the AV groove where there is a proximal 30% stenosis. It then provides a large branching OM1 which has diffuse mild disease. The mid AV groove circumflex has a long eccentric stenosis appearing in some views appearing 50 to 60% narrowed. It provides a medium caliber OM 2 which has mild proximal disease of 30 to 40% focal stenosis. The remainder of the circumflex and its branches have no angiographically significant disease. RCA: Medium to large in caliber dominant vessel. There is diffuse disease in the RCA. There is a proximal to mid long eccentric stenosis of up to 50%. Then, there is a previously placed stent in the mid segment extending into the early distal vessel. This has at most 20% in-stent restenosis. Just beyond the edge of that stent there is a very focal napkin ring looking 95 to 99% stenosis. This may also represent a small branch vessel running across the field. The RCA provides a medium caliber PDA and a medium to large caliber branching posterolateral. These vessels have scattered mild plaques. FFR analysis of LAD: (Pullback with continuous FFR analysis) Mid stenosis: 0.76, therefore, this is hemodynamically significant Proximal stenosis: 0.78, therefore this is hemodynamically significant Ostial stenosis: 0.91, therefore this is not hemodynamically significant PCI of LAD: 0% residual stenosis at the proximal and mid lesions. Small stepdown at the distal edge of the mid LAD stent. There is a short intervening segment which is unstented between the distal edge of the proximal stent and the proximal edge of the more distal stent. KARYN-3 flow post PCI No evidence of dissection or perforation post PCI Summary: 1. Patent prior stent with mild in-stent restenosis 2. Angiographically borderline disease in the LAD. FFR analysis of the mid and proximal lesion demonstrate these lesions to be hemodynamically significant. FFR analysis of the ostial lesion does not demonstrate this lesion is hemodynamically significant at this time. 3. Successful PCI of the LAD with implantation of 2 drug-eluting stents 4. Possible severe residual disease in the RCA. Angiographically moderate disease in the circumflex. 5. Patient will remain on dual antiplatelet therapy for at least 1 year. 6. Recommend optimize guideline directed medical therapy for secondary prevention of coronary disease to include; low-dose aspirin, high intensity statin therapy, beta-kenisha, and LAUREN inhibitor or angiotensin receptor kenisha given his diabetes. Patient refuses statin therapy. 7. If patient has residual anginal symptoms then I would recommend return to the [facility] for further evaluation of the questionable RCA stenosis as well as the angiographically moderate disease in the circumflex (this is a long lesion and may be hemodynamically significant). Hemodynamics Rest Ao:: 149/96 mmHg, mean 120 mmHg Final Ao: 160/92 mmHg, mean 122 mmHg LV: Not performed Recommendations Recommendations: PCI without planned CABG Radiation Exposure (mGy) 2463 mGy, fluoroscopy time 14.6 minutes Contrast (mls) 211 mL Anesthesia 3 mg IV Versed, 75 mcg IV fentanyl Procedural Complication(s) None Disposition PCU I attest to the content of the Intraoperative Record and any orders documented therein. Any exceptions are noted below. GlistenG Card Cath Procedure Codes Cardiac Catheterization Procedure 1: Cardiovascular Cath Procedures: 02887 Coronaries Procedure 2: Cardiovascular Cath Procedures: 25315 (Doppler) Pressure Wire Moderate Sedation Procedure 1: Sedation/Anesthesia: 76784 Mod Sedation by the same physician;Init15 Min Child Age 5 & Up (Initial 15 min (total 52 min)) Procedure 2: Sedation/Anesthesia: 85794 Mod Sedation by the same physician; Ea [id number] Minutes (Additional 37 min (total 52 min)) Stenting Procedure 1: Cardiovascular Stent Procedures: 98075 Perc transcatheter placement of intracoronary stent(s), with ang (LAD) PG Care Time/CCT Total # of Minutes Spent Total Time Spent with Patient: Total time spent is greater than 50% in coordination of care (as documented) at patient's floor/unit and/or counseling patient:
[2022-10-05] MEDS: INSULIN ASPART PER UNIT SC SCH ×3 (12:54→20:04)
--- NOTE | 2022-10-05 13:11 | History & Physical Report ---
Date of Service October 05, 2022 Assessment & Plan (1) S/P cardiac catheterization: (2) S/P drug eluting coronary stent placement: (3) CAD (coronary artery disease): (4) Abnormal stress echocardiogram: (5) DM type 2 (diabetes mellitus, type 2): (6) CKD (chronic kidney disease), stage III: (7) Hypertension: (8) Dyslipidemia: Plan This is a 62-year-old male who has significant past medical history of CAD, moderate aortic stenosis, T2DM, HTN, HLD not on statin therapy due to refusal, gout, CKD stage III with baseline creatinine 1.6 who presents for urgent cardiac catheterization secondary to failed outpatient stress test of significance pt had 2 separate events that occurred 2 days in a row where he ate a large meal and then exerted himself and developed substernal chest pressure and tightness. Status post cardiac catheterization with drug-eluting stent placement x2 to LAD CAD History of previous PCI to RCA x1 MARTHA in 2013 Moderate aortic stenosis Patient admitted to PCU Cardiac cath performed by Dr. Lundberg We have been consulted for medical Continue ASA, metoprolol and Brilinta per cardiology Patient refuses to take statin therapy Currently chest pain-free, radial band per protocol Give gentle IV fluid x1 L in setting of CKD Consult [facility] cardiology T2DM Last A1c 06/2022 6.9 Hold metformin Lantus/NovoLog per protocol HLD Despite evidence of hyperlipidemia patient refuses statin therapy Defer to cardiology CKD stage III Baseline creatinine 1.6 Avoid nephrotoxic agents Gentle IV fluid status post cardiac cath BMP in the a.m. Dispo: Admitted to PCU likely DC to home when cleared by cardiology Full code PCP: Dr. Chamorro Patient was seen and examined in collaboration with, Dr. Palomino, please see addendum Thank you for this consultation. We will follow the patient with you during their hospital stay. You can reach a member of the [facility] Hospitalist Team 04/03 via hospitalist role on tiger text. A total of 60 minutes were spent with greater than 50% of that time face to face with the patient, personally reviewing all current laboratories, imaging studies, past medication reconciliation, outpatient chart review, and discussion with specialists to collaborate care for the patient with attending. Please see attending documentation for corrections and/or additions. Admission and Anticipated Discharge Date Admission Date: October 05, 2022 History of Present Illness Chief Complaint: S/P Cardiac Cath Primary Care Provider: Timi Lord MD This is a 62-year-old male who has significant past medical history of CAD, moderate aortic stenosis, T2DM, HTN, HLD not on statin therapy due to refusal, gout, CKD stage III with baseline creatinine 1.6 who presents for urgent cardiac catheterization secondary to failed outpatient stress test of significance pt had 2 separate events that occurred 2 days in a row where he ate a large meal and then exerted himself and developed substernal chest pressure and tightness. He had a previous cath and stent placed in 2013. He has history of acute inferior myocardial infarction and underwent emergent cardiac cath revealing a total mid RCA occlusion and MARTHA was deployed to mid RCA. He saw his insurance agent Dr. White who referred pt to stress echo which was abnormal. It was felt to represent myocardial ischemia. He underwent cardiac cath today and had 2 MARTHA stents placed. Post operatively he feels well. He denies f/c/s, chest pain, sob, cough, uri, n/v/d, abd pain, change in bowel or urinary habits. He offers no acute concerns and states, "I could go home right now." Prior hx of smoking in which he quit 15-16 years ago. He would smoke 1ppd for ~ 6 years. Patient stress echo on 10/01/2022 revealed wall motion abnormalities now present in the basal septal and basal inferior whyte at rest with moderate aortic stenosis. During stress echocardiogram there was change with ECG evidence of stress- induced myocardial ischemia. Patient's medical records and cardiology notes from Dr. White reviewed. Allergies Allergy/AdvReac Type Severity Reaction Status Date / Time amoxicillin [From Augmentin] Allergy Unknown Verified 10/05/22 11:01 clavulanic acid Allergy Unknown Verified 10/05/22 11:01 [From Augmentin] sulfamethoxazole Allergy Unknown Verified 10/05/22 11:01 [From Bactrim] trimethoprim [From Bactrim] Allergy Unknown Verified 10/05/22 11:01 Home Medications Medication Instructions Recorded Confirmed Type cholecalciferol (vitamin D3) 125 5,000 units PO QAM 03/02/19 10/05/22 History mcg (5,000 unit) capsule aspirin 81 mg tablet,delayed 81 mg PO QAM 09/20/19 10/05/22 History release vitamin A palmitate 3,000 mcg 10,000 unit PO QAM 09/20/19 10/05/22 History (10,000 unit) capsule allopurinol 300 mg tablet 300 mg PO QAM 08/22/21 10/05/22 History metformin 500 mg tablet,extended 500 mg PO BID 04/05/22 10/05/22 History release 24hr multivitamin 1 tab PO DAILY 04/05/22 10/05/22 History metoprolol succinate 25 mg 25 mg PO DAILY #90 tabs 09/06/22 10/05/22 Rx tablet,extended release 24 hr nitroglycerin 0.4 mg sublingual 0.4 mg sublingual Q5M PRN chest 09/10/22 10/05/22 Rx tablet pain #30 tabs Past Med/Surg History Medical History Acute respiratory failure with hypoxia Antiplatelet or antithrombotic long-term use CAD (coronary artery disease) 06/2014: MARTHA to mid RCA Chest pain, atypical CKD (chronic kidney disease), stage III COVID-19 DM type 2 (diabetes mellitus, type 2) Dyslipidemia Fatty liver Gout History of herpes simplex infection History of orthostatic hypotension Hypertension Influenza B Male erectile disorder of organic origin Near syncope Pneumonia due to COVID-19 virus Polyarthritis Surgical History History of ankle surgery right done in 1997 due to fracture Hx of heart artery stent Family History Denies family history of Heart disease Social History (Updated 10/05/22 @ 11:21 by Shilpi Lopez PA-C) Smoking Status: Former smoker Tobacco Type: Cigarettes Tobacco Cessation Education Requested by Patient: No Hx Alcohol Use: Yes (very rare) Alcohol type: beer Hx Substance Use: No Preferred Language: Chilean Communication Ability: Effective Sow Farm Manager Required: No Beliefs That Will Affect Care: None marital status: Single Current Living Situation: Alone Feels Safe at Home: No Is there a partner from a previous relationship who is making you feel unsafe now?: No Any Concerns about Your Family Situation: No Would You Like to Speak to Someone About Your Situation: No Safety Concerns: Feels Safe At This Time Assistive Devices: None Review of Systems Review of Systems: All systems reviewed & are unremarkable except as noted in HPI & below Physical Exam Physical Exam: Please refer to Dr. Palomino addendum for physical exam findings. Results & Data Results & Data ([facility]) Vital Signs (Past 12 Hours) Vital Signs Temp Pulse Resp BP BP Pulse Ox O2 Del Method 10/05/22 12:14 92 H 18 166/100 H 98 Room Air 10/05/22 11:15 96 H 95 H 186/92 H 99 Room Air 10/05/22 12:01 186/127 H 10/05/22 11:53 178/106 H 10/05/22 11:45 94 H 18 195/127 H 98 Room Air 10/05/22 11:01 93 H 18 160/98 H 98 Room Air 10/05/22 10:45 93 H 18 178/90 H 99 Room Air 10/05/22 10:20 89 18 176/98 H 98 Room Air 10/05/22 07:04 36.6 C 74 20 200/120 H 97 Room Air Diagnostic Findings Per Dr. Hope report: "Summary: 1. Patent prior stent with mild in-stent restenosis 2. Angiographically borderline disease in the LAD. FFR analysis of the mid and proximal lesion demonstrate these lesions to be hemodynamically significant. FFR analysis of the ostial lesion does not demonstrate this lesion is hemodynamically significant at this time. 3. Successful PCI of the LAD with implantation of 2 drug-eluting stents 4. Possible severe residual disease in the RCA. Angiographically moderate disease in the circumflex. 5. Patient will remain on dual antiplatelet therapy for at least 1 year. 6. Recommend optimize guideline directed medical therapy for secondary prevention of coronary disease to include; low-dose aspirin, high intensity statin therapy, beta-kenisha, and LAUREN inhibitor or angiotensin receptor kenisha given his diabetes. Patient refuses statin therapy. 7. If patient has residual anginal symptoms then I would recommend return to the [facility] for further evaluation of the questionable RCA stenosis as well as the angiographically moderate disease in the circumflex (this is a long lesion and may be hemodynamically significant)." Medications Administered Current Inpatient Medications Allopurinol (Allopurinol 300 Mg Tab) 300 mg PO QAM [facility] Stop: 11/05/22 08:59 Aspirin (Aspirin 81 Mg Ectab) 81 mg PO QAM [facility] Stop: 11/05/22 08:59 Dextrose (Dextrose 50% 50 Ml Syringe) 25 - 50 ml IV UD PRN; Protocol PRN Reason: Hypoglycemia Protocol Stop: 11/04/22 11:01 Glucagon (Glucagon For Inj 1 Mg Vial) 1 mg SQ UD PRN; Protocol PRN Reason: Hypoglycemia Protocol Stop: 11/04/22 11:01 Glucose (Glucose 10 Tab/Tube) 4 - 8 tab PO UD PRN; Protocol PRN Reason: Hypoglycemia Treatment Stop: 11/04/22 11:01 Glucose (Glucose 40% Gel 15 Gm Tube) 15 - 30 gm PO UD PRN; Protocol PRN Reason: Hypoglycemia Protocol Stop: 11/04/22 11:01 Sodium Chloride (Nss 1000ml) 1,000 mls @ 80 mls/hr IV .[id number] [facility]ENN[facility]ER Stop: 10/05/22 23:59 Last Admin: 10/05/22 12:05 Dose: 80 mls/hr Insulin Aspart (Insulin Aspart Per Unit) 0 units SC ACHS [facility] Stop: 11/04/22 11:29 Last Admin: 10/05/22 12:54 Dose: 1 units Insulin Glargine (Lantus Per Unit Charge) 0 - 10 units SQ BID [facility] Stop: 11/04/22 20:59 Metoprolol Succinate (Metoprolol Succ 25mg Ext Rel Tab) 25 mg PO QAM [facility] Stop: 11/04/22 10:29 Last Admin: 10/05/22 12:14 Dose: 25 mg Miscellaneous (Carbohydrates For Hypoglycemia ) 15 - 30 gm PO UD PRN PRN Reason: Hypoglycemia Protocol Stop: 11/04/22 11:01 Multivitamins (Multivitamin Tab) 1 tab PO DAILY [facility]ENN[facility] Stop: 11/05/22 08:59 Ticagrelor (Ticagrelor 90 Mg Tab) 90 mg PO BID [facility] Stop: 11/04/22 20:59 Vitamin D (Cholecalciferol 5,000 Units 125 Mcg Tab) 5,000 units PO QAM [facility] Stop: 11/05/22 08:59 Code Status & VTE Plan Code Status FULL CODE VTE Prophylaxis Plan VTE Prophylaxis will be ordered: No Reason for no VTE drug order: Treatment not indicated Supervising Physician Co-Signing Physician Notes Patient seen and examined. History notable for 62-year-old man with history of CAD with stent who had a cath today. Patient had postprandial exertional dyspnea on 2 occasions some weeks ago. Was seen by his insurance agent and had outpatient stress test which was abnormal. Patient had cardiac catheterization today which noted patent prior stent with mild in-stent restenosis, successful PCI of LAD with implantation of 2 drug- eluting stent, possible severe residual disease in RCA. On exam, General: No acute distress and not ill appearing Eyes: PERRL, conjunctivae normal, not pale, anicteric sclerae, EOM intact bilaterally ENMT: External ear and nose normal, oropharynx normal Respiratory: Normal respiratory effort, no respiratory distress, lungs clear to auscultation, no crackles and no wheezes Cardiovascular: RRR S1 S2 Gastrointestinal (Abdomen): Abdomen is not distended, soft, non-tender to palpation, no guarding, no palpable hepatosplenomegaly, normal bowel sounds Musculoskeletal: No pedal edema. Neurologic: Alert and oriented x 3, No focal weakness, sensation grossly intact Psychiatric: E, euthymic affect Currently on aspirin and Brilinta We will continue dual antiplatelet for at least a year. Patient ideally should be on statin but outpatient cardiology notes noted patient declined statin therapy. We will defer antihypertensives with insurance agent. Check hemoglobin A1c. Other plans as detailed by Shilpi Lopez PA-C (3) CAD (coronary artery disease) Associated angina: without angina Coronary Disease-Associated Artery/Lesion type: unspecified vessel or lesion type [place] vs. transplanted heart: [place] heart Qualified Code(s): I25.10 - Atherosclerotic heart disease of [place] coronary artery without angina pectoris (5) DM type 2 (diabetes mellitus, type 2) Diabetes mellitus complication status: with hyperglycemia Diabetes mellitus terminal gauger insulin use: without terminal gauger use Qualified Code(s): E11.65 - Type 2 diabetes mellitus with hyperglycemia (6) CKD (chronic kidney disease), stage III Chronic kidney disease stage 3 subtype: unspecified whether 3a or 3b Qualified Code(s): N18.30 - Chronic kidney disease, stage 3 unspecified
[2022-10-05] MEDS ORDERED: hydrALAZINE HCL 20 MG/ML VIAL IV PRN (15:57)
[2022-10-05] MEDS: LOSARTAN POTASSIUM 50 MG TAB PO SCH (16:21)
--- NOTE | 2022-10-05 16:27 | Electrocardiogram Report ---
Test Reason : Blood Pressure : / mmHG Vent. Rate : 085 BPM Atrial Rate : 085 BPM P-R Int : 162 ms QRS Dur : 104 ms QT Int : 384 ms P-R-T Axes : 051 005 061 degrees QTc Int : 456 ms Normal sinus rhythm Moderate voltage criteria for LVH, may be normal variant Borderline ECG When compared with ECG of 22-AUG-2021 09:21, Nonspecific T wave abnormality now evident in Lateral leads Confirmed by Feroz Singleton ([id number]) on 10/05/2022 4:27:05 PM Referred By: Hector White Confirmed By:Delroy Singleton
[2022-10-05 16:42] LABS: Hematocrit (blood only) 44.7 % (42.0-52.0); Hemoglobin 16.2 g/dl (14.0-18.0); Mean Corpuscular Hemoglobin 30.9 pg (25.0-34.0); Mean Corpuscular Hgb Conc 36.2 g/dL (32.0-36.0); Mean Corpuscular Volume 85.1 fL (80.0-100.0); Mean Platelet Volume 9.6 fL (9.4-12.4); Platelet Count 251 K/uL (130-400); RDW Coefficient of Variation 12.9 % (11.5-14.5); RDW Standard Deviation 39.9 fL (36.4-46.3); Red Blood Count 5.25 M/uL (4.70-6.10)
[2022-10-05 16:50] LABS: BUN Creatinine Ratio 14.2 (10-20); Calcium 10.1 mg/dl (8.5-10.1); Creatinine Clr Calc Pharmacy 63.4 ml/min; Est GFR (African American) 58.8 ml/min; Est GFR (Non-African American) 50.7 ml/min; Potassium 3.5 mmol/L (3.5-5.1)
[2022-10-05] MEDS: LANTUS PER UNIT CHARGE SQ SCH (20:05)
[2022-10-05] MEDS: TICAGRELOR 90 MG TAB PO SCH (20:06)
[2022-10-06 06:12] LABS: Basophils # (auto) 0.06 K/uL (0-0.2); Basophils % (auto) 0.8 %; Eosinophils # (auto) 0.21 K/uL (0-0.50); Eosinophils % (auto) 2.9 %; Hematocrit (blood only) 40.6 % (42.0-52.0); Hemoglobin 14.4 g/dl (14.0-18.0); Immature Granulocytes # (auto) 0.02 K/uL (0.01-0.20); Immature Granulocytes % (auto) 0.3 %; Lymphocytes # (auto) 0.77 K/uL (1.2-3.4); Lymphocytes % (auto) 10.7 %; Mean Corpuscular Hgb Conc 35.5 g/dL (32.0-36.0); Mean Corpuscular Volume 84.6 fL (80.0-100.0); Monocytes % (auto) 8.3 %; Neutrophils # (auto) 5.56 K/uL (1.40-6.50); Platelet Count 244 K/uL (130-400); RDW Coefficient of Variation 12.9 % (11.5-14.5); RDW Standard Deviation 39.8 fL (36.4-46.3); White Blood Count 7.22 K/ul (4.8-10.8)
[2022-10-06 06:23] LABS: BUN Creatinine Ratio 13.7 (10-20); Calcium 9.7 mg/dl (8.5-10.1); Chol HDL Ratio 6.2 (0-5); Creatinine Clr Calc Pharmacy 61.4 ml/min; Est GFR (African American) 56.4 ml/min; Est GFR (Non-African American) 48.7 ml/min; Potassium 3.8 mmol/L (3.5-5.1)
[2022-10-06] MEDS: INSULIN ASPART PER UNIT SC SCH ×2 (07:55→12:08)
[2022-10-06] MEDS: TICAGRELOR 90 MG TAB PO SCH (07:58)
[2022-10-06] MEDS: LOSARTAN POTASSIUM 50 MG TAB PO SCH (07:58)
[2022-10-06] MEDS: LANTUS PER UNIT CHARGE SQ SCH (07:59)
[2022-10-06 08:00] LABS: Estimated Average Glucose 148 mg/dl; Hemoglobin A1C 6.8 % (4.5-5.6)
[2022-10-06] MEDS: METOPROLOL SUCC 25MG EXT REL TAB PO SCH (08:28)
[2022-10-06] MEDS ORDERED: CHOLECALCIFEROL 5,000 UNITS 125 MCG TAB PO SCH (09:00)
[2022-10-06] MEDS ORDERED: allopurinoL 300 MG TAB PO SCH (09:00)
[2022-10-06] MEDS ORDERED: MULTIVITAMIN TAB PO SCH (09:00)
[2022-10-06] MEDS ORDERED: ASPIRIN 81 MG ECTAB PO SCH (09:00)
[2022-10-06] MEDS ORDERED: ISOSORBIDE MONO EXTENDED REL 30 MG TABCR PO ONE (10:05)
--- NOTE | 2022-10-06 11:19 | Discharge Summary ---
Date of Service October 06, 2022 Admission HPI Per Admitting Provider This is a 62-year-old male with a history of diabetes (poorly controlled), dyslipidemia (refused statin), coronary artery disease with prior RCA stent (2013), stage IIIa chronic kidney disease, who experienced 2 episodes of unstable angina. He was eventually seen by his primary electrical installation supervisor to recommended stress echocardiogram. This was severely abnormal and he was therefore scheduled to undergo elective outpatient catheterization. Yesterday, he underwent catheterization demonstrating severe CAD and multiple vessels. FFR analysis of the LAD demonstrated to hemodynamically significant lesions which were treated with drug-eluting stent implantation. Prior RCA stent was patent. Borderline disease in the circumflex and possible severe disease in the distal RCA were not addressed at this time. Patient was provided IV fluids given his baseline chronic renal insufficiency. His blood pressure has remained elevated despite the fact that we have added antihypertensives as indicated by underlying coronary disease. He did well overnight without issues other than the elevated blood pressure. Denies any recurrent chest pain and has had no shortness of breath. Isosorbide mononitrate was a late addition to his medical regimen this morning which he has not yet received. Once he receives and tolerates this medication he will be appropriate for discharge from a cardiovascular standpoint. I will have him see Dr. White within 2 weeks of discharge. Admission Exam (Per Admitting) Eyes PERRL, conjunctivae normal, anicteric sclerae ENMT external ear and nose normal, oropharynx normal Neck No JVD Respiratory Clear to auscultation bilaterally. No wheezing, rhonchi, or rales. Cardiovascular Regular rate and rhythm. S4 gallop. Grade 2 out of 6 systolic murmur. Normal pulses. No edema. Musculoskeletal no cyanosis or clubbing, extremities motor strength 5/5 (Right radial access site is clean dry and intact. Good distal perfusion.) Neurologic Cognition is intact. Speech is fluent. No focal deficits. No tremor. Psychiatric A+Ox3, euthymic affect Discharge Data Consultations 10/05/22 10:16 Consult Hospitalist Stat 10/05/22 11:28 Consult Cardiology Routine Procedures Performed Operation Date: 10/05/22 08:00 Actual Procedures p Cineradiography w/Routine Exam - Michael Hope MD, PhD p Cath, Coronaries ONLY (no LV) - Michael Hope MD, PhD s Drug Eluting Stent SGl Vessel - Michael Hope MD, PhD s Fraction Flow [place] SGL Ves - Michael Hope MD, PhD Diabetes Follow Up Diabetes Follow Up: See primary care provider within 2 to 4 weeks of discharge. Hospital Course (1) S/P drug eluting coronary stent placement: 2 drug-eluting stents to the LAD. No complications. Residual disease in the circumflex and RCA as described. Dual antiplatelet therapy with aspirin 81 mg daily and Brilinta 90 mg p.o. twice daily. Should he develop intolerance to Brilinta or if the khan is excessive then we can switch him to Plavix as an outpatient. Guideline directed medical therapy for secondary prevention of coronary disease is recommended. This includes low-dose aspirin, high intensity statin therapy, beta-kenisha, and angiotensin receptor kenisha. We have also added isosorbide mononitrate 30 mg for blood pressure and anginal relief. Patient has historically refused statin. We again encouraged him to reconsider this and he will discuss further with his primary electrical installation supervisor. (2) Moderate aortic stenosis: This certainly can contribute to shortness of breath. However, not currently an issue which needs to be addressed any further than with serial echocardiogram. (3) CKD (chronic kidney disease), stage III: Patient did not receive an excessive amount of IVP contrast. However, his renal function has been fairly labile lately. He will have a basic metabolic panel checked after discharge. I have encouraged him to take liberal oral hydration. We added low-dose losartan which at his current renal insufficiency level should actually be nephro protective. However, we will follow this closely. (4) DM type 2 (diabetes mellitus, type 2): This has been poorly controlled on his part. While in the hospital we did use a Lantus insulin. His regimen needs to be addressed by his primary care provider and again he needs to begin to comply with medical recommendations or he will continue to have adverse events. (5) Hypertension: Blood pressure is elevated at the moment. He is on metoprolol succinate ER 25 mg daily, we added losartan 50 mg p.o. daily, and I am adding isosorbide mononitrate 30 mg daily for blood pressure and anginal relief. Further titration as an outpatient. (6) Dyslipidemia: Patient is high risk (diabetes and coronary disease). By current guidelines he is recommended for high intensity statin therapy which he has refused. We will continue to try to convince him that this will be in his best interest long-term to reduce the likelihood of further cardiovascular events. Today, he is discharged without a statin. Plan Follow-up with primary electrical installation supervisor within 2 to 4 weeks of discharge. Discharge Instructions Please see discharge instructions with regard to care for the radial artery access site. Coding Level of Care Code HOSP INP/OBS DISCH >30 MIN Diagnoses S/P drug eluting coronary stent placement Z95.5 Moderate aortic stenosis I35.0 CKD (chronic kidney disease), stage III N18.30 Chronic kidney disease stage 3 subtype: unspecified whether 3a or 3b DM type 2 (diabetes mellitus, type 2) E11.65 Diabetes mellitus complication status: with hyperglycemia Diabetes mellitus senior care insulin use: without inventory control coordinator use Hypertension I10 Dyslipidemia E78.5
--- NOTE | 2022-10-06 13:25 | Hospitalist Progress Note ---
Date of Service October 06, 2022 Assessment & Plan (1) S/P cardiac catheterization: (2) S/P drug eluting coronary stent placement: (3) CAD (coronary artery disease): (4) Abnormal stress echocardiogram: (5) DM type 2 (diabetes mellitus, type 2): (6) CKD (chronic kidney disease), stage III: (7) Hypertension: (8) Dyslipidemia: Plan This is a 62-year-old male who has significant past medical history of CAD, moderate aortic stenosis, T2DM, HTN, HLD not on statin therapy due to refusal, gout, CKD stage III with baseline creatinine 1.6 who presents for urgent cardiac catheterization secondary to failed outpatient stress test of significance pt had 2 separate events that occurred 2 days in a row where he ate a large meal and then exerted himself and developed substernal chest pressure and tightness. Status post cardiac catheterization with drug-eluting stent placement x2 to LAD CAD History of previous PCI to RCA x1 MARTHA in 2013 Moderate aortic stenosis No post operative complications Cardiac cath performed by Dr. Lundberg/patient saw Dr. Hope who reviewed the new meds with him and performed the discharge. Continue ASA, metoprolol and Brilinta per cardiology Patient refuses to take statin therapy Currently symptom free and stable for discharge. T2DM Last A1c 06/2022 6.9 Hold metformin Lantus/NovoLog per protocol while inpatient Resume metformin 48 hours post contrast administration. HLD Despite evidence of hyperlipidemia patient refuses statin therapy Defer to cardiology CKD stage III Chronic, stable-at baseline. Janet Tobin DO [facility] Admission and Anticipated Discharge Date Admission Date: October 05, 2022 Subjective 62 yo M s/p heart cath with 2 MARTHA no chest pain or SOB feels well no insertion site issues. Review of Systems Review of Systems: All systems were reviewed and negative except as indicated above. Physical Exam Physical Exam: CONSTITUTIONAL: WNWD, vitals as above, generally well-appearing, NAD EYES: normal conjunctivae, no scleral icterus ENT: external ear and nose normal, MMM NECK: trachea midline RESPIRATORY: clear to auscultation bilaterally, no crackles, rales or wheezes, normal respiratory effort CARDIOVASCULAR: regular rate and rhythm, S1 and 2 heard without murmurs, ga llops or rubs, no JVD, no peripheral edema CHEST: inspection of chest was normal GASTROINTESTINAL: soft, nontender, ND, no guarding MUSCULOSKELETAL: strength 5/5 throughout, head is normocephalic and atraumatic, neck supple, normal palpation of chest wall without tenderness SKIN: warm and dry NEUROLOGIC: . CN 2-12 grossly intact, no sensory deficit, normal cognition, normal speech, no tremor PSYCHIATRIC: alert cooperative and oriented to person, place and time. Euthymic mood, makes good eye contact, language grossly intact, recent and remote memory grossly intact. Results & Data Results & Data ([facility]) Vital Signs (Past 12 Hours) Vital Signs Temp Pulse Pulse Resp BP BP Pulse Ox 10/06/22 12:50 36.8 C 78 86 18 167/93 H 131/87 97 10/06/22 11:49 36.8 C 86 18 131/87 97 10/06/22 07:02 36.4 C L 83 19 167/93 H 95 10/06/22 03:20 78 150/78 H 10/06/22 03:14 37.0 C 93 H 18 93 O2 Del Method 10/06/22 12:50 10/06/22 11:49 Room Air 10/06/22 07:02 Room Air 10/06/22 03:20 10/06/22 03:14 Room Air (3) CAD (coronary artery disease) Associated angina: without angina Coronary Disease-Associated Artery/Lesion type: unspecified vessel or lesion type [place] vs. transplanted heart: [place] heart Qualified Code(s): I25.10 - Atherosclerotic heart disease of [place] coronary artery without angina pectoris (5) DM type 2 (diabetes mellitus, type 2) Diabetes mellitus complication status: with hyperglycemia Diabetes mellitus watermelon inspector insulin use: without jail use Qualified Code(s): E11.65 - Type 2 diabetes mellitus with hyperglycemia (6) CKD (chronic kidney disease), stage III Chronic kidney disease stage 3 subtype: unspecified whether 3a or 3b Qualified Code(s): N18.30 - Chronic kidney disease, stage 3 unspecified
== END 2022-10-06 13:37 | disposition home or self-care (01) ==
LOC: CC 06:45 → 2E 06:45 → SUATTDRO 10:16
PROC: CLB.CCO (2022-10-05 08:00)
DX: Z79.82 Long term (current) use of aspirin; I25.10 Atherosclerotic heart disease of native coronary artery without angina pectoris; E11.22 Type 2 diabetes mellitus with diabetic chronic kidney disease; Z79.899 Other long term (current) drug therapy; Z88.1 Allergy status to other antibiotic agents; I12.9 Hypertensive chronic kidney disease with stage 1 through stage 4 chronic kidney disease, or unspecified chronic kidney disease; Z79.84 Long term (current) use of oral hypoglycemic drugs; Z88.2 Allergy status to sulfonamides; N18.30 Chronic kidney disease, stage 3 unspecified; Z87.891 Personal history of nicotine dependence; I35.0 Nonrheumatic aortic (valve) stenosis; E78.5 Hyperlipidemia, unspecified; E11.65 Type 2 diabetes mellitus with hyperglycemia

== ENCOUNTER 2022-11-17 17:40 | Inpatient (IN) ==
--- NOTE | 2022-11-17 18:21 | Emergency Department Note ---
ED Provider Note History of Present Illness Chief Complaint: Confusion Stated Complaint: LOSS OF MEMORY Time Seen by Provider: 11/17/22 18:00 62-year-old male who presents the emergency department for evaluation of intermittent tunnel vision that has been random over the past few days. The patient reports that he currently does not have any symptoms. He was at [facility], walking from the parking lot to the store when he developed symptoms, he elected to come to the emergency department for evaluation. The patient has a history of heart disease with stents, but denies any chest pain or shortness of breath. The patient reports that his blood pressures have been very variable lately, along with his blood glucose levels. The patient reports that his PCP stopped his losartan lately, but still takes metoprolol 25 mg daily. The p atient reports that he has lost 7 pounds over the past few months. Patient denies any headaches, nausea, diaphoresis or urinary symptoms. Home Medications Medication Instructions Recorded Confirmed Type cholecalciferol (vitamin D3) 125 5,000 units PO QAM 03/02/19 11/17/22 History mcg (5,000 unit) capsule aspirin 81 mg tablet,delayed 81 mg PO QAM 09/20/19 11/17/22 History release vitamin A palmitate 3,000 mcg 10,000 unit PO QAM 09/20/19 11/17/22 History (10,000 unit) capsule allopurinol 300 mg tablet 300 mg PO QAM 08/22/21 11/17/22 History metformin 500 mg tablet,extended 500 mg PO BID 04/05/22 11/17/22 History release 24hr multivitamin 1 tab PO DAILY 04/05/22 11/17/22 History metoprolol succinate 25 mg 25 mg PO DAILY #90 tabs 09/06/22 11/17/22 Rx tablet,extended release 24 hr nitroglycerin 0.4 mg sublingual 0.4 mg sublingual Q5M PRN chest 09/10/22 11/17/22 Rx tablet pain #30 tabs losartan 50 mg tablet 50 mg PO QAM #30 tabs 10/06/22 11/17/22 Rx empagliflozin 10 mg tablet 10 mg PO DAILY 11/08/22 11/17/22 History (Jardiance) rosuvastatin 20 mg tablet (Crestor) 20 mg PO DAILY 11/08/22 11/17/22 History isosorbide mononitrate 30 mg 30 mg PO QAM 11/17/22 11/17/22 History tablet,extended release 24 hr ticagrelor 90 mg tablet (Brilinta) 90 mg PO AMPM 11/17/22 11/17/22 History Allergies Allergy/AdvReac Type Severity Reaction Status Date / Time amoxicillin [From Augmentin] Allergy Unknown Unknown Verified 11/17/22 20:39 clavulanic acid Allergy Unknown Unknown Verified 11/17/22 20:39 [From Augmentin] sulfamethoxazole Allergy Unknown Unknown Verified 11/17/22 20:39 [From Bactrim] trimethoprim [From Bactrim] Allergy Unknown Unknown Verified 11/17/22 20:39 Past Med/Surg History Medical History Acute respiratory failure with hypoxia Antiplatelet or antithrombotic long-term use CAD (coronary artery disease) 06/2014: MARTHA to mid RCA Chest pain, atypical CKD (chronic kidney disease), stage III COVID-19 DM type 2 (diabetes mellitus, type 2) Dyslipidemia Fatty liver Gout History of herpes simplex infection History of orthostatic hypotension Hypertension Influenza B Male erectile disorder of organic origin Near syncope Pneumonia due to COVID-19 virus Polyarthritis Surgical History History of ankle surgery right done in 1997 due to fracture Hx of heart artery stent Family History Denies family history of Heart disease Social History Smoking Status: Former smoker Tobacco Type: Cigarettes Second Hand Exposure: No; Do You Dip or Chew Tobacco: No; Hx Alcohol Use: No Hx Substance Use: No Preferred Language: Swazi Communication Ability: Effective Vice Chancellor Required: No Beliefs That Will Affect Care: None marital status: Single Current Living Situation: Alone Other Information That Helps Us Care for You: No Feels Safe at Home: Yes Safety Concerns: Feels Safe At This Time Assistive Devices: None Physical Exam Vital Signs Vital Signs - 24 hr 11/17/22 17:44 11/17/22 18:00 11/17/22 18:12 Temperature 36.9 C Temperature Source Temporal Artery Scan Pulse Rate 87 65 Pulse Rate [Apical] 67 Pulse Rate from SpO2 Sensor Respiratory Rate 18 18 Respiratory Effort / Characteristics Non-Labored Spontaneous Non-Labored Spontaneous Respiratory Depth Normal Normal Blood Pressure 156/94 H Blood Pressure [Right Arm] 132/94 Blood Pressure Mean 114 Blood Pressure Mean [Right Arm] 106 Blood Pressure Position Sitting Pulse Oximetry 99 99 Oxygen Delivery Method Room Air Room Air Sepsis Recent Fever Within 48 Hours No Sepsis New/Unexplained Change in Mental Status N/A Sepsis Action Taken by Nursing No Action Required 11/17/22 18:22 11/17/22 18:30 11/17/22 19:00 Temperature Temperature Source Pulse Rate 68 Pulse Rate [Apical] Pulse Rate from SpO2 Sensor Respiratory Rate 22 Respiratory Effort / Characteristics Respiratory Depth Blood Pressure 135/81 145/78 H Blood Pressure [Right Arm] Blood Pressure Mean 99 100 Blood Pressure Mean [Right Arm] Blood Pressure Position Pulse Oximetry 99 99 Oxygen Delivery Method Room Air Sepsis Recent Fever Within 48 Hours Sepsis New/Unexplained Change in Mental Status Sepsis Action Taken by Nursing 11/17/22 19:00 11/17/22 19:29 11/17/22 19:29 Temperature Temperature Source Pulse Rate 67 70 Pulse Rate [Apical] Pulse Rate from SpO2 Sensor 67 70 Respiratory Rate 18 17 Respiratory Effort / Characteristics Respiratory Depth Blood Pressure 154/82 H Blood Pressure [Right Arm] Blood Pressure Mean 106 Blood Pressure Mean [Right Arm] Blood Pressure Position Pulse Oximetry 98 99 Oxygen Delivery Method Sepsis Recent Fever Within 48 Hours Sepsis New/Unexplained Change in Mental Status Sepsis Action Taken by Nursing 11/17/22 19:30 11/17/22 19:30 11/17/22 20:00 Temperature Temperature Source Pulse Rate 65 Pulse Rate [Apical] Pulse Rate from SpO2 Sensor 65 Respiratory Rate 21 Respiratory Effort / Characteristics Respiratory Depth Blood Pressure 144/77 H 152/82 H Blood Pressure [Right Arm] Blood Pressure Mean 99 105 Blood Pressure Mean [Right Arm] Blood Pressure Position Pulse Oximetry 99 Oxygen Delivery Method Sepsis Recent Fever Within 48 Hours Sepsis New/Unexplained Change in Mental Status Sepsis Action Taken by Nursing 11/17/22 20:00 11/17/22 20:30 11/17/22 21:00 Temperature Temperature Source Pulse Rate 65 70 60 Pulse Rate [Apical] Pulse Rate from SpO2 Sensor 65 70 62 Respiratory Rate 15 13 11 L Respiratory Effort / Characteristics Respiratory Depth Blood Pressure Blood Pressure [Right Arm] Blood Pressure Mean Blood Pressure Mean [Right Arm] Blood Pressure Position Pulse Oximetry 99 99 98 Oxygen Delivery Method Sepsis Recent Fever Within 48 Hours Sepsis New/Unexplained Change in Mental Status Sepsis Action Taken by Nursing 11/17/22 21:30 Temperature Temperature Source Pulse Rate 71 Pulse Rate [Apical] Pulse Rate from SpO2 Sensor 74 Respiratory Rate 18 Respiratory Effort / Characteristics Respiratory Depth Blood Pressure Blood Pressure [Right Arm] Blood Pressure Mean Blood Pressure Mean [Right Arm] Blood Pressure Position Pulse Oximetry 93 Oxygen Delivery Method Sepsis Recent Fever Within 48 Hours Sepsis New/Unexplained Change in Mental Status Sepsis Action Taken by Nursing CONSTITUTIONAL: Healthy and well nourished. Alert and oriented X 3. GCS 15. HEENT: Normocephalic, atraumatic. Pupils equal, round and reactive. Mucous membranes are not dry. No posterior pharyngeal erythema, rhinorrhea or c onjunctival pallor. NECK: Full active range of motion without discomfort. No JVD or carotid bruits . LYMPHATICS: No cervical chain adenopathy. RESPIRATORY: Clear to auscultation bilaterally with no wheezing, crackles, rhonchi or stridor. CARDIOVASCULAR: Regular rate and rhythm with a grade 3 out of 6 crescendo decrescendo systolic murmur, best heard at the left upper sternal border. No rubs or gallops. GASTROINTESTINAL: Bowel sounds present in all quadrants. MUSCULOSKELETAL: Full range of motion of all joints without discomfort. INTEGUMENTARY: No rash or other significant dermatologic conditions noted. HEMATOLOGIC: No ecchymosis or petechiae. PSYCHIATRIC: Positive affect. NEUROLOGIC: No focal neurologic deficits noted. Course Course Patient history and physical exam were performed. Nurses notes were reviewed. Vital signs were reviewed and were normal. Review of triage vital signs shows an elevated blood pressure 156/94. The patient is not hypoxic, febrile or tachycardic. After examining the patient, I did recheck his blood pressure, showing a reading of 150/83. Given the patient's history, I did recommend additional lab work, ECG and orthostatic vital signs. I also recommended CT imaging of the head, but the patient declined. IV access was established, and labs are drawn. The patient had orthostatic vital signs completed, however I could not find the results in medical records. An ECG was performed, showing a possible right bundle branch block. Comparison with an ECG from 10/05/2022 shows a similar ECG pattern. It is also noted that radiology read does not indicate a RBBB. The patient was placed on monitoring analyst while in the emergency department. A portable chest x-ray was normal. Review of labs showed an elevated troponin of 264. Urinalysis shows trace ketonuria with 3+ glucosuria. No hematuria or signs of infection. Patient also has a mild hyponatremia. Findings were discussed with Dr. Bass, ED attending physician, as well as Dr. Murphy, [facility] [address] hospitalist who will further evaluate the patient for possible observation. Please see his dictation for further treatment and final disposition. Administered Medications Sodium Chloride (Nss 1000ml) 1,000 mls @ 60 mls/hr IV .[id number] ONE Stop: 11/18/22 12:37 Last Admin: 11/17/22 20:36 Dose: 60 mls/hr Documented By: ALLISON Insulin Aspart (Insulin Aspart Per Unit Charge) 0 units SC ACHS JENNIFER Stop: 12/17/22 23:04 Last Admin: 11/17/22 23:45 Dose: Not Given Documented By: CAROLA Co-signed By: LISSETT Rosuvastatin Calcium (Rosuvastatin Calcium 20 Mg Tab) 20 mg PO HS JENNIFER Stop: 12/17/22 23:44 Last Admin: 11/17/22 23:48 Dose: 20 mg Documented By: CAROLA Ticagrelor (Ticagrelor 90 Mg Tab) 90 mg PO BID JENNIFER Stop: 12/17/22 23:14 Last Admin: 11/17/22 23:45 Dose: 90 mg Documented By: CAROLA Medical Decision Making Medical Records Attestation: I reviewed the patient's medical records. Home Medications was personally reviewed by me Laboratory Data Attestation: I reviewed the patient's lab results. 11/17/22 18:29 11/17/22 18:29 Lab Results 11/17/22 11/17/22 11/17/22 Range/Units 18:29 18:29 18:29 WBC 4.53 L (4.8-10.8) K/ul RBC 3.74 L (4.70-6.10) M/uL Hgb 11.9 L (14.0-18.0) g/dl Hct 32.5 L (42.0-52.0) % MCV 86.9 (80.0-100.0) fL MCH 31.8 (25.0-34.0) pg MCHC 36.6 H (32.0-36.0) g/dL RDW Std Deviation 45.3 (36.4-46.3) fL RDW Coeff of Dirk 14.6 H (11.5-14.5) % Plt Count 224 (130-400) K/uL MPV 10.3 (9.4-12.4) fL Immature Gran % (Auto) 0.2 % Neut % (Auto) 55.8 % Lymph % (Auto) 29.4 % [place] % (Auto) 10.4 % Eos % (Auto) 3.3 % Baso % (Auto) 0.9 % Reticulocyte % (Auto) (0.5-2.0) % Neut # (Auto) 2.53 (1.40-6.50) K/uL Lymph # (Auto) 1.33 (1.2-3.4) K/uL [place] # (Auto) 0.47 (0.11-0.59) K/uL Eos # (Auto) 0.15 (0-0.50) K/uL Baso # (Auto) 0.04 (0-0.2) K/uL Reticulocyte # (0.02-0.10) 10^6/uL Immature Gran # (Auto) 0.01 (0.01-0.20) K/uL APTT (21.0-31.0) Seconds PTT Ratio Sodium 134 L (136-145) mmol/L Potassium 4.4 (3.5-5.1) mmol/L Chloride 103 (98-107) mmol/L Carbon Dioxide 23 (21-32) mmol/L Anion Gap 8 (3-11) BUN 33 H (6-23) mg/dl Creatinine 1.61 H (0.6-1.4) mg/dl Est Cr Clr Drug Dosing Not Reportable Est GFR ( Amer) 53.1 ml/min Est GFR (Non-Af Amer) 45.8 ml/min BUN/Creatinine Ratio 20.5 H (10-20) Glucose 102 H (70-99(Fasting)) mg/dl Calcium 9.1 (8.6-10.3) mg/dl Magnesium 2.1 (1.7-2.4) mg/dl Iron Transferrin (200-360) mg/dl Ferritin (8-388) ng/ml Total Bilirubin 0.3 (0.2-1.0) mg/dl AST 19 (13-39) U/L ALT 11 (7-52) U/L Alkaline Phosphatase 51 (34-104) U/L Troponin I High Sens 264.1 H* (0-20) pg/ml Total Protein 7.0 (6.0-8.3) gm/dl Albumin 4.4 (3.4-5.0) gm/dl Globulin 2.6 (2.5-4.0) gm/dl Albumin/Globulin Ratio 1.7 (0.9-2) Vitamin B12 (180-914) pg/ml Folate (>5.38) ng/ml TSH 2.369 (0.300-4.500) uIu/ml Urine Color Urine Appearance (Clear) Urine pH (4.5-7.5) Ur Specific [place] (1.000-1.030) Urine Protein (Negative) Urine Glucose (UA) (Negative) Urine Ketones (Negative) Urine Blood (Negative) Urine Nitrite (Negative) Urine Bilirubin (Negative) Urine Urobilinogen (Negative) Ur Leukocyte Esterase (Negative) Lyme Disease IgG Ab (Negative) Lyme Disease IgM Ab (Negative) SARS-CoV-2, RNA, NAAT (NEGATIVE) 11/17/22 11/17/22 11/17/22 Range/Units 18:29 18:29 18:29 WBC (4.8-10.8) K/ul RBC (4.70-6.10) M/uL Hgb (14.0-18.0) g/dl Hct (42.0-52.0) % MCV (80.0-100.0) fL MCH (25.0-34.0) pg MCHC (32.0-36.0) g/dL RDW Std Deviation (36.4-46.3) fL RDW Coeff of Dirk (11.5-14.5) % Plt Count (130-400) K/uL MPV (9.4-12.4) fL Immature Gran % (Auto) % Neut % (Auto) % Lymph % (Auto) % [place] % (Auto) % Eos % (Auto) % Baso % (Auto) % Reticulocyte % (Auto) (0.5-2.0) % Neut # (Auto) (1.40-6.50) K/uL Lymph # (Auto) (1.2-3.4) K/uL [place] # (Auto) (0.11-0.59) K/uL Eos # (Auto) (0-0.50) K/uL Baso # (Auto) (0-0.2) K/uL Reticulocyte # (0.02-0.10) 10^6/uL Immature Gran # (Auto) (0.01-0.20) K/uL APTT 24.9 (21.0-31.0) Seconds PTT Ratio 0.9 Sodium (136-145) mmol/L Potassium (3.5-5.1) mmol/L Chloride (98-107) mmol/L Carbon Dioxide (21-32) mmol/L Anion Gap (3-11) BUN (6-23) mg/dl Creatinine (0.6-1.4) mg/dl Est Cr Clr Drug Dosing Est GFR ( Amer) ml/min Est GFR (Non-Af Amer) ml/min BUN/Creatinine Ratio (10-20) Glucose (70-99(Fasting)) mg/dl Calcium (8.6-10.3) mg/dl Magnesium (1.7-2.4) mg/dl Iron Transferrin (200-360) mg/dl Ferritin (8-388) ng/ml Total Bilirubin (0.2-1.0) mg/dl AST (13-39) U/L ALT (7-52) U/L Alkaline Phosphatase (34-104) U/L Troponin I High Sens (0-20) pg/ml Total Protein (6.0-8.3) gm/dl Albumin (3.4-5.0) gm/dl Globulin (2.5-4.0) gm/dl Albumin/Globulin Ratio (0.9-2) Vitamin B12 1382 H (180-914) pg/ml Folate > 22.30 (>5.38) ng/ml TSH (0.300-4.500) uIu/ml Urine Color Urine Appearance (Clear) Urine pH (4.5-7.5) Ur Specific [place] (1.000-1.030) Urine Protein (Negative) Urine Glucose (UA) (Negative) Urine Ketones (Negative) Urine Blood (Negative) Urine Nitrite (Negative) Urine Bilirubin (Negative) Urine Urobilinogen (Negative) Ur Leukocyte Esterase (Negative) Lyme Disease IgG Ab Negative (Negative) Lyme Disease IgM Ab Negative (Negative) SARS-CoV-2, RNA, NAAT (NEGATIVE) 11/17/22 11/17/22 11/17/22 Range/Units 18:35 19:23 20:20 WBC (4.8-10.8) K/ul RBC (4.70-6.10) M/uL Hgb (14.0-18.0) g/dl Hct (42.0-52.0) % MCV (80.0-100.0) fL MCH (25.0-34.0) pg MCHC (32.0-36.0) g/dL RDW Std Deviation (36.4-46.3) fL RDW Coeff of Dirk (11.5-14.5) % Plt Count (130-400) K/uL MPV (9.4-12.4) fL Immature Gran % (Auto) % Neut % (Auto) % Lymph % (Auto) % [place] % (Auto) % Eos % (Auto) % Baso % (Auto) % Reticulocyte % (Auto) 2.3 H (0.5-2.0) % Neut # (Auto) (1.40-6.50) K/uL Lymph # (Auto) (1.2-3.4) K/uL [place] # (Auto) (0.11-0.59) K/uL Eos # (Auto) (0-0.50) K/uL Baso # (Auto) (0-0.2) K/uL Reticulocyte # 0.09 (0.02-0.10) 10^6/uL Immature Gran # (Auto) (0.01-0.20) K/uL APTT (21.0-31.0) Seconds PTT Ratio Sodium (136-145) mmol/L Potassium (3.5-5.1) mmol/L Chloride (98-107) mmol/L Carbon Dioxide (21-32) mmol/L Anion Gap (3-11) BUN (6-23) mg/dl Creatinine (0.6-1.4) mg/dl Est Cr Clr Drug Dosing Est GFR ( Amer) ml/min Est GFR (Non-Af Amer) ml/min BUN/Creatinine Ratio (10-20) Glucose (70-99(Fasting)) mg/dl Calcium (8.6-10.3) mg/dl Magnesium (1.7-2.4) mg/dl Iron Transferrin (200-360) mg/dl Ferritin (8-388) ng/ml Total Bilirubin (0.2-1.0) mg/dl AST (13-39) U/L ALT (7-52) U/L Alkaline Phosphatase (34-104) U/L Troponin I High Sens (0-20) pg/ml Total Protein (6.0-8.3) gm/dl Albumin (3.4-5.0) gm/dl Globulin (2.5-4.0) gm/dl Albumin/Globulin Ratio (0.9-2) Vitamin B12 (180-914) pg/ml Folate (>5.38) ng/ml TSH (0.300-4.500) uIu/ml Urine Color Yellow Urine Appearance Clear (Clear) Urine pH 5.5 (4.5-7.5) Ur Specific [place] 1.010 (1.000-1.030) Urine Protein Negative (Negative) Urine Glucose (UA) 3+ H (Negative) Urine Ketones Trace H (Negative) Urine Blood Negative (Negative) Urine Nitrite Negative (Negative) Urine Bilirubin Negative (Negative) Urine Urobilinogen Negative (Negative) Ur Leukocyte Esterase Negative (Negative) Lyme Disease IgG Ab (Negative) Lyme Disease IgM Ab (Negative) SARS-CoV-2, RNA, NAAT NEGATIVE (NEGATIVE) 11/17/22 Range/Units 21:04 WBC (4.8-10.8) K/ul RBC (4.70-6.10) M/uL Hgb (14.0-18.0) g/dl Hct (42.0-52.0) % MCV (80.0-100.0) fL MCH (25.0-34.0) pg MCHC (32.0-36.0) g/dL RDW Std Deviation (36.4-46.3) fL RDW Coeff of Dirk (11.5-14.5) % Plt Count (130-400) K/uL MPV (9.4-12.4) fL Immature Gran % (Auto) % Neut % (Auto) % Lymph % (Auto) % [place] % (Auto) % Eos % (Auto) % Baso % (Auto) % Reticulocyte % (Auto) (0.5-2.0) % Neut # (Auto) (1.40-6.50) K/uL Lymph # (Auto) (1.2-3.4) K/uL [place] # (Auto) (0.11-0.59) K/uL Eos # (Auto) (0-0.50) K/uL Baso # (Auto) (0-0.2) K/uL Reticulocyte # (0.02-0.10) 10^6/uL Immature Gran # (Auto) (0.01-0.20) K/uL APTT (21.0-31.0) Seconds PTT Ratio Sodium (136-145) mmol/L Potassium (3.5-5.1) mmol/L Chloride (98-107) mmol/L Carbon Dioxide (21-32) mmol/L Anion Gap (3-11) BUN (6-23) mg/dl Creatinine (0.6-1.4) mg/dl Est Cr Clr Drug Dosing Est GFR ( Amer) ml/min Est GFR (Non-Af Amer) ml/min BUN/Creatinine Ratio (10-20) Glucose (70-99(Fasting)) mg/dl Calcium (8.6-10.3) mg/dl Magnesium (1.7-2.4) mg/dl Iron TNP Transferrin 254 (200-360) mg/dl Ferritin 27.2 (8-388) ng/ml Total Bilirubin (0.2-1.0) mg/dl AST (13-39) U/L ALT (7-52) U/L Alkaline Phosphatase (34-104) U/L Troponin I High Sens 388.4 H* D (0-20) pg/ml Total Protein (6.0-8.3) gm/dl Albumin (3.4-5.0) gm/dl Globulin (2.5-4.0) gm/dl Albumin/Globulin Ratio (0.9-2) Vitamin B12 (180-914) pg/ml Folate (>5.38) ng/ml TSH (0.300-4.500) uIu/ml Urine Color Urine Appearance (Clear) Urine pH (4.5-7.5) Ur Specific [place] (1.000-1.030) Urine Protein (Negative) Urine Glucose (UA) (Negative) Urine Ketones (Negative) Urine Blood (Negative) Urine Nitrite (Negative) Urine Bilirubin (Negative) Urine Urobilinogen (Negative) Ur Leukocyte Esterase (Negative) Lyme Disease IgG Ab (Negative) Lyme Disease IgM Ab (Negative) SARS-CoV-2, RNA, NAAT (NEGATIVE) Imaging Data Attestation: I personally reviewed and interpreted this imaging study as follows: My Impression: My interpretation of a portable chest x-ray does not show any consolidations, cardiomegaly or failure pattern. Radiologist report was also reviewed. Radiologist's Impression: Chest X-Ray 11/17/22 18:14 XR chest 1V portable CLINICAL HISTORY: weakness COMPARISON STUDY: Chest radiograph and chest CT August 22, 2021. FINDINGS: Lung volumes are normal. Lungs are clear. Multifocal airspace opacities shown on prior chest radiograph and chest CT have resolved. There is no pneumothorax or pleural effusion. Cardiac size is normal. Mediastinal contours are normal. There is no evidence for pulmonary edema. IMPRESSION: No acute cardiopulmonary findings. ACT 112: Negative or not required by law. Electronically signed by: Reji Jolly M.D. 11/17/2022 6:[address] 11/17/22 20:36 Exam(s): CT HEAD Without Contrast EXAM: CT Head Without Intravenous Contrast CLINICAL HISTORY: Reason for exam: dizziness, tunnel vision, anemia. TECHNIQUE: Axial computed tomography images of the head/brain without intravenous contrast. CTDI is 36.41 mGy and DLP is 614.27 mGy-cm. Automated exposure control was utilized for the study. A dose lowering technique was utilized adhering to the principles of ALARA. COMPARISON: No relevant prior studies available. FINDINGS: No acute intracranial hemorrhage. No midline shift or mass effect. The territorial maxwell-white matter differentiation is maintained throughout. Age-related cerebral volume loss. Periventricular and subcortical white matter hypoattenuation, consistent with chronic microangiopathy. The visualized orbits appear grossly unremarkable. The calvarium is intact. The visualized paranasal sinuses and mastoid air cells are grossly clear. IMPRESSION: No acute intracranial hemorrhage, midline shift, or mass effect. Electronically signed by: Riley Gomez MD 11/17/22 21:58 PM ECG Data Attestation: I personally reviewed and interpreted this ECG as follows: Indication: + weakness and + other (Near syncope) Rhythm: + normal sinus ECG Intervals/blocks: + Normal QRS, + Normal QT and + Normal IL ECG [place]: + Normal ECG ST segments: + Normal ST segments Comparison ECG Date: from (10/05/2022) Change: no significant change MDM Narrative Cardiac monitoring: An order was placed for continuous cardiac monitoring. The monitor shows a rate of 85 bpm with a normal sinus rhythm. awake overnight monitor history was reviewed throughout the evaluation, and no dysrhythmias were noted. Patient presents to the emergency department with complaint of near syncope and visual disturbance that has been intermittent over the past few days. Patient reports that sometimes it happens when he stands up, other times when he is not doing anything strenuous. The patient clinically does not appear dehydrated. The patient has not had any chest pain or shortness of breath. The patient does have an elevated troponin of unknown etiology. Since the patient's cardiac catheterization and stent placement was performed approximately 5 weeks ago, I would suspect the troponin level to be lower at this time. Patient does not have any major electrolyte abnormality. He has a mildly elevated creatinine, however this appears to be baseline for the patient. Patient is mildly hyponatremic of doubtful clinical significance. Given the patient's intermit tent symptoms and elevated troponin, I do feel that the patient's cardiac trends need to be monitored. The patient was in agreement with this plan. As indicated previously, the patient has refused CT imaging of the head. I suspect that the hospitalist service will persuade him to get a CT. after the hospitalist service placed admission orders, CT imaging did come back normal. Impression Near syncope, S/P cardiac catheterization, S/P drug eluting coronary stent placement, Visual disturbance, Elevated troponin level Discharge Plan Visit Data Chief Complaint: Confusion Stated Complaint: LOSS OF MEMORY ED Provider: Edward Bass ED Midlevel Provider: Julien Chambers Discharge Problem: Near syncope, S/P cardiac catheterization, S/P drug eluting coronary stent placement, Visual disturbance, Elevated troponin level Patient Disposition: Admitted As Inpatient Discharge Instructions Interventions: ED Discharge Assessment Last Done: 11/17/22 23:00
--- NOTE | 2022-11-17 18:34 | XRay Report ---
XR chest 1V portable CLINICAL HISTORY: weakness COMPARISON STUDY: Chest radiograph and chest CT August 22, 2021. FINDINGS: Lung volumes are normal. Lungs are clear. Multifocal airspace opacities shown on prior ches t radiograph and chest CT have resolved. There is no pneumothorax or pleural effusion. Cardiac size i s normal. Mediastinal contours are normal. There is no evidence for pulmonary edema. IMPRESSION: No acute cardiopulmonary findings. ACT 112: Negative or not required by law. Electronically signed by: Reji Jolly M.D. 11/17/2022 6:32 PM
[2022-11-17 18:43] LABS: Basophils # (auto) 0.04 K/uL (0-0.2); Basophils % (auto) 0.9 %; Eosinophils # (auto) 0.15 K/uL (0-0.50); Eosinophils % (auto) 3.3 %; Hematocrit (blood only) 32.5 % (42.0-52.0); Hemoglobin 11.9 g/dl (14.0-18.0); Immature Granulocytes # (auto) 0.01 K/uL (0.01-0.20); Immature Granulocytes % (auto) 0.2 %; Lymphocytes # (auto) 1.33 K/uL (1.2-3.4); Lymphocytes % (auto) 29.4 %; Mean Corpuscular Hemoglobin 31.8 pg (25.0-34.0); Mean Corpuscular Hgb Conc 36.6 g/dL (32.0-36.0); Mean Corpuscular Volume 86.9 fL (80.0-100.0); Mean Platelet Volume 10.3 fL (9.4-12.4); Monocytes # (auto) 0.47 K/uL (0.11-0.59); Monocytes % (auto) 10.4 %; Neutrophils # (auto) 2.53 K/uL (1.40-6.50); Neutrophils % (auto) 55.8 %; Platelet Count 224 K/uL (130-400); RDW Coefficient of Variation 14.6 % (11.5-14.5); RDW Standard Deviation 45.3 fL (36.4-46.3); Red Blood Count 3.74 M/uL (4.70-6.10); White Blood Count 4.53 K/ul (4.8-10.8)
[2022-11-17 19:31] LABS: Alanine Aminotransferase 11 U/L (7-52); Albumin Globulin Ratio 1.7 (0.9-2); Albumin Level 4.4 gm/dl (3.4-5.0); Alkaline Phosphatase 51 U/L (34-104); Anion Gap 8 (3-11); Aspartate Aminotransferase 19 U/L (13-39); BUN Creatinine Ratio 20.5 (10-20); Bilirubin,Total 0.3 mg/dl (0.2-1.0); Blood Urea Nitrogen 33 mg/dl (6-23); Calcium 9.1 mg/dl (8.6-10.3); Carbon Dioxide 23 mmol/L (21-32); Chloride 103 mmol/L (98-107); Est GFR (African American) 53.1 ml/min; Est GFR (Non-African American) 45.8 ml/min; Globulin 2.6 gm/dl (2.5-4.0); Glucose 102 mg/dl (70-99(Fasting)); Potassium 4.4 mmol/L (3.5-5.1); Sodium 134 mmol/L (136-145); Troponin I High Sensitivity 264.1 pg/ml (0-20)
[2022-11-17 19:50] LABS: Appearance Urine Clear (Clear); Bilirubin Urine Negative (Negative); Blood Urine Negative (Negative); Color Urine Yellow; Glucose Urine UA 3+ (Negative); Ketones Urine Trace (Negative); Leukocyte Esterase Urine Negative (Negative); Nitrite Urine Negative (Negative); Protein Urine Negative (Negative); Urobilinogen Urine Negative (Negative); pH Urine 5.5 (4.5-7.5)
[2022-11-17] MEDS ORDERED: SODIUM CHLORIDE 0.9% 1000ML 1,000 ML IV ONE (19:58)
[2022-11-17 20:26] LABS: Reticulocyte % 2.3 % (0.5-2.0); Reticulocytes # 0.09 10^6/uL (0.02-0.10)
[2022-11-17 20:44] LABS: Lyme Ab IgG w/WB Rflx Negative (Negative); Lyme Ab IgM w/WB Rflx Negative (Negative)
[2022-11-17 20:45] LABS: Magnesium 2.1 mg/dl (1.7-2.4)
--- NOTE | 2022-11-17 20:45 | History & Physical Report ---
Date of Service November 17, 2022 Assessment & Plan (1) Visual disturbance: Plan: Intermittent tunnel vision bilateral Possibly from anemia post blood donation last week Rule out orthostasis Rule out TIA given patient risk factors chronic diastolic heart failure (EF 60 to 65%, TTE 2021), patient euvolemic to dry valvular heart disease (moderate MR, mild AR/TR) hx CAD status post stent hypertension, stable hyperlipidemia on statin Rx CRI, at baseline DM2 on oral medications, well-controlled as of recent outpatient hemoglobin A1c of 6.18 October 2022 past tobacco abuse OBS Medical telemetry neurochecks Check orthostatic vitals TIA work-up consisting of MRI/MRA brain, carotid Dopplers and 2D echo Anemia work-up, transfuse PRBC if hemoglobin less than 8 Further management pending work-up results Basal bolus insulin ISS BG goal 1 10-1 40, carb count coverage DVT prophylaxis. Heparin subcu Full code Text document was generated using [employer] voice recognition software. It may contain grammatical or spelling errors. Kindly contact undersigned for clarification of any documentation item in question. History of Present Illness Chief Complaint: Intermittent tunnel vision, both eyes Primary Care Provider: Timi Lord MD History obtained from patient and records. Medical history significant for chronic diastolic heart failure (EF 60 to 65%, TTE 2021), valvular heart disease (moderate MR, mild AR/TR), CAD status post stent, hypertension, hyperlipidemia, CRI (baseline creatinine 1.7), DM2 on oral medications, gout, past tobacco abuse. Last confinement September 2022 for unstable angina. Severe multivessel CAD on diagnostic cardiac catheterization. Subsequent drug-eluting stent placement with note of hemodynamically significant lesions in the LAD. 2 weeks ago, patient donated 2 pints of blood to a local blood donation center. Shortly after blood donation patient would note intermittent tunnel vision bilateral without headache symptoms. No chest pain, no SOB. Denies abdominal pain, black, bloody stools. Patient compliant with home medications. Patient consulted ER for evaluation. 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 Allergies Allergy/AdvReac Type Severity Reaction Status Date / Time amoxicillin [From Augmentin] Allergy Unknown Unknown Verified 11/17/22 20:39 clavulanic acid Allergy Unknown Unknown Verified 11/17/22 20:39 [From Augmentin] sulfamethoxazole Allergy Unknown Unknown Verified 11/17/22 20:39 [From Bactrim] trimethoprim [From Bactrim] Allergy Unknown Unknown Verified 11/17/22 20:39 Home Medications Medication Instructions Recorded Confirmed Type cholecalciferol (vitamin D3) 125 5,000 units PO QAM 03/02/19 11/17/22 History mcg (5,000 unit) capsule aspirin 81 mg tablet,delayed 81 mg PO QAM 09/20/19 11/17/22 History release vitamin A palmitate 3,000 mcg 10,000 unit PO QAM 09/20/19 11/17/22 History (10,000 unit) capsule allopurinol 300 mg tablet 300 mg PO QAM 08/22/21 11/17/22 History metformin 500 mg tablet,extended 500 mg PO BID 04/05/22 11/17/22 History release 24hr multivitamin 1 tab PO DAILY 04/05/22 11/17/22 History metoprolol succinate 25 mg 25 mg PO DAILY #90 tabs 09/06/22 11/17/22 Rx tablet,extended release 24 hr nitroglycerin 0.4 mg sublingual 0.4 mg sublingual Q5M PRN chest 09/10/22 11/17/22 Rx tablet pain #30 tabs losartan 50 mg tablet 50 mg PO QAM #30 tabs 10/06/22 11/17/22 Rx empagliflozin 10 mg tablet 10 mg PO DAILY 11/08/22 11/17/22 History (Jardiance) rosuvastatin 20 mg tablet (Crestor) 20 mg PO DAILY 11/08/22 11/17/22 History isosorbide mononitrate 30 mg 30 mg PO QAM 11/17/22 11/17/22 History tablet,extended release 24 hr ticagrelor 90 mg tablet (Brilinta) 90 mg PO AMPM 11/17/22 11/17/22 History Past Med/Surg History Medical History Acute respiratory failure with hypoxia Antiplatelet or antithrombotic long-term use CAD (coronary artery disease) 06/2014: MARTHA to mid RCA Chest pain, atypical CKD (chronic kidney disease), stage III COVID-19 DM type 2 (diabetes mellitus, type 2) Dyslipidemia Fatty liver Gout History of herpes simplex infection History of orthostatic hypotension Hypertension Influenza B Male erectile disorder of organic origin Near syncope Pneumonia due to COVID-19 virus Polyarthritis Surgical History History of ankle surgery right done in 1997 due to fracture Hx of heart artery stent Family History Denies family history of Heart disease Social History Smoking Status: Former smoker Tobacco Type: Cigarettes Second Hand Exposure: No; Do You Dip or Chew Tobacco: No; Hx Alcohol Use: No Hx Substance Use: No Preferred Language: Scottish Communication Ability: Effective Professional Builder Required: No Beliefs That Will Affect Care: None marital status: Single Current Living Situation: Alone Other Information That Helps Us Care for You: No Feels Safe at Home: Yes Safety Concerns: Feels Safe At This Time Assistive Devices: None Review of Systems Review of Systems: As per HPI, all other systems reviewed and negative Physical Exam Physical Exam: GENERAL: Comfortable, pleasant, no respiratory distress SKIN: Pallor, warm HEENT: Pale palpebral conjunctivae, no ptosis, dry buccal mucosa NECK : Supple, no tenderness CHEST : CTA, no tenderness HEART : RRR, systolic murmur ABDOMEN: no distention, nontender EXTREMITIES : No LE swelling/tenderness, no other conspicuous deformities noted NEUROLOGIC : Coherent, no facial asymmetry, no other gross focality Results & Data Results & Data Vital Signs (Past 12 Hours) Vital Signs Temp Pulse Pulse Resp BP BP Pulse Ox 11/17/22 18:30 68 22 135/81 99 11/17/22 18:22 99 11/17/22 18:12 65 11/17/22 18:00 67 18 132/94 99 11/17/22 17:44 36.9 C 87 18 156/94 H 99 O2 Del Method 11/17/22 18:30 11/17/22 18:22 Room Air 11/17/22 18:12 11/17/22 18:00 Room Air 11/17/22 17:44 Room Air Laboratory Results Laboratory Results WBC 4.53 K/ul (4.8-10.8) L 11/17/22 18:29 RBC 3.74 M/uL (4.70-6.10) L 11/17/22 18:29 Hgb 11.9 g/dl (14.0-18.0) L 11/17/22 18: Hct 32.5 % (42.0-52.0) L 11/17/22 18: MCV 86.9 fL (80.0-100.0) 11/17/22 18: MCH 31.8 pg (25.0-34.0) 11/17/22 18: MCHC 36.6 g/dL (32.0-36.0) H 11/17/22 18: RDW Std Deviation 45.3 fL (36.4-46.3) 11/17/22 18: RDW Coeff of Dirk 14.6 % (11.5-14.5) H 11/17/22 18: Plt Count 224 K/uL (130-400) 11/17/22 18: MPV 10.3 fL (9.4-12.4) 11/17/22 18: Immature Gran % (Auto) 0.2 % 11/17/22 18: Neut % (Auto) 55.8 % 11/17/22 18:29 Lymph % (Auto) 29.4 % 11/17/22 18:29 [place] % (Auto) 10.4 % 11/17/22 18: Eos % (Auto) 3.3 % 11/17/22 18: Baso % (Auto) 0.9 % 11/17/22: Reticulocyte % (Auto) 2.3 % (0.5-2.0) H 11/17/22 18:35 Neut # (Auto) 2.53 K/uL (1.40-6.50) 11/17/22 18:29 Lymph # (Auto) 1.33 K/uL (1.2-3.4) 11/17/22 18: [place] # (Auto) 0.47 K/uL (0.11-0.59) 11/17/22 18: Eos # (Auto) 0.15 K/uL (0-0.50) 11/17/22 18: Baso # (Auto) 0.04 K/uL (0-0.2) 11/17/22 18: Reticulocyte # 0.09 10^6/uL (0.02-0.10) 11/17/22 18:35 Immature Gran # (Auto) 0.01 K/uL (0.01-0.20) 11/17/22 18:29 Sodium 134 mmol/L (136-145) L 11/17/22 18:29 Potassium 4.4 mmol/L (3.5-5.1) 11/17/22 18: Chloride 103 mmol/L (98-107) 11/17/22 18: Carbon Dioxide 23 mmol/L (21-32) 11/17/22 18:29 Anion Gap 8 (3-11) 11/17/22 18:29 BUN 33 mg/dl (6-23) H 11/17/22 18: Creatinine 1.61 mg/dl (0.6-1.4) H 11/17/22 18: Est Cr Clr Drug Dosing Not Reportable 11/17/22 18: Est GFR ( Amer) 53.1 ml/min 11/17/22 18: Est GFR (Non-Af Amer) 45.8 ml/min 11/17/22 18: BUN/Creatinine Ratio 20.5 (10-20) H 11/17/22 18: Glucose 102 mg/dl (70-99(Fasting)) H 11/17/22 18: Calcium 9.1 mg/dl (8.6-10.3) 11/17/22 18: Magnesium TNP 11/17/22 18: Total Bilirubin 0.3 mg/dl (0.2-1.0) 11/17/22 18: AST 19 U/L (13-39) 11/17/22 18: ALT 11 U/L (7-52) 11/17/22 18: Alkaline Phosphatase 51 U/L (34-104) 11/17/22 18:29 Troponin I High Sens 264.1 pg/ml (0-20) H* 11/17/22 18: Total Protein 7.0 gm/dl (6.0-8.3) 11/17/22 18: Albumin 4.4 gm/dl (3.4-5.0) 11/17/22 18: Globulin 2.6 gm/dl (2.5-4.0) 11/17/22 18: Albumin/Globulin Ratio 1.7 (0.9-2) 11/17/22 18:29 TSH 2.369 uIu/ml (0.300-4.500) 11/17/22 18:29 Urine Color Yellow 11/17/22 19:23 Urine Appearance Clear (Clear) 11/17/22 19:23 Urine pH 5.5 (4.5-7.5) 11/17/22 19:23 Ur Specific [place] 1.010 (1.000-1.030) 11/17/22 19:23 Urine Protein Negative (Negative) 11/17/22 19: Urine Glucose (UA) 3+ (Negative) H 11/17/22 19: Urine Ketones Trace (Negative) H 11/17/22 19: Urine Blood Negative (Negative) 11/17/22 19: Urine Nitrite Negative (Negative) 11/17/22 19: Urine Bilirubin Negative (Negative) 11/17/22 19: Urine Urobilinogen Negative (Negative) 11/17/22 19: Ur Leukocyte Esterase Negative (Negative) 11/17/22 19:23 SARS-CoV-2, RNA, NAAT NEGATIVE (NEGATIVE) 11/17/22 20:20 Impressions Chest X-Ray 11/17/22 18:14 XR chest 1V portable CLINICAL HISTORY: weakness COMPARISON STUDY: Chest radiograph and chest CT August 22, 2021. FINDINGS: Lung volumes are normal. Lungs are clear. Multifocal airspace opacities shown on prior chest radiograph and chest CT have resolved. There is no pneumothorax or pleural effusion. Cardiac size is normal. Mediastinal contours are normal. There is no evidence for pulmonary edema. IMPRESSION: No acute cardiopulmonary findings. ACT 112: Negative or not required by law. Electronically signed by: Reji Jolly M.D. 11/17/2022 6:[address] head: No acute intracranial hemorrhage, midline shift, or mass effect. EKG as per my interpretation : Rate 70, NSR, normal axis, no ischemia
[2022-11-17 21:09] LABS: Partial Thromboplastin Ratio 0.9; Partial Thromboplastin Time 24.9 Seconds (21.0-31.0)
--- NOTE | 2022-11-17 21:59 | CT Scan Report ---
Exam(s): CT HEAD Without Contrast EXAM: CT Head Without Intravenous Contrast CLINICAL HISTORY: Reason for exam: dizziness, tunnel vision, anemia. TECHNIQUE: Axial computed tomography images of the head/brain without intravenous contrast. CTDI is 36.41 mGy and DLP is 614.27 mGy-cm. Automated exposure control was utilized for the study. A dose lowering technique was utilized adhering to the principles of ALARA. COMPARISON: No relevant prior studies available. FINDINGS: No acute intracranial hemorrhage. No midline shift or mass effect. The territorial maxwell-white matter differentiation is maintained throughout. Age-related cerebral volume loss. Periventricular and subcortical white matter hypoattenuation, consistent with chronic microangiopathy. The visualized orbits appear grossly unremarkable. The calvarium is intact. The visualized paranasal sinuses and mastoid air cells are grossly clear. IMPRESSION: No acute intracranial hemorrhage, midline shift, or mass effect. Electronically signed by: Riley Gomez MD 11/17/22 21:58 PM
[2022-11-17 22:09] LABS: Transferrin 254 mg/dl (200-360); Troponin I High Sensitivity 388.4 pg/ml (0-20)
[2022-11-17 22:22] LABS: Ferritin 27.2 ng/ml (8-388)
[2022-11-17 23:03] LABS: Vitamin B12 1382 pg/ml (180-914)
[2022-11-17] MEDS ORDERED: GLUCOSE 40% GEL 15 GM TUBE PO PRN (23:05)
[2022-11-17] MEDS ORDERED: PROMETHAZINE HCL 12.5 MG in SODIUM CHLORIDE 0.9% 50 ML IV PRN (23:05)
[2022-11-17] MEDS ORDERED: traMADol HCL 50 MG TABLET PO PRN (23:05)
[2022-11-17] MEDS ORDERED: GLUCAGON FOR INJ 1 MG VIAL SQ PRN (23:05)
[2022-11-17] MEDS ORDERED: GLUCOSE 10 TAB/TUBE PO PRN (23:05)
[2022-11-17] MEDS ORDERED: DEXTROSE 50% 50 ML SYRINGE IV PRN (23:05)
[2022-11-17] MEDS ORDERED: ACETAMINOPHEN 325 MG TAB PO PRN (23:05)
[2022-11-17] MEDS ORDERED: CARBOHYDRATES FOR HYPOGLYCEMIA PO PRN (23:05)
[2022-11-17] MEDS: INSULIN ASPART PER UNIT CHARGE SC SCH (23:45)
[2022-11-17] MEDS: TICAGRELOR 90 MG TAB PO SCH (23:45)
[2022-11-17] MEDS ORDERED: Nursing to Pharmacy Communication SCH (23:45)
[2022-11-17] MEDS: ROSUVASTATIN CALCIUM 20 MG TAB PO SCH (23:48)
--- NOTE | 2022-11-18 02:05 | Ultrasound Report ---
Exam(s): US CAROTID EXAM: US Duplex Bilateral Extracranial Arteries CLINICAL HISTORY: Reason for exam: tia. TECHNIQUE: Real-time duplex ultrasound scan of the extracranial arteries integrating B-mode two-dimensional vascular structure, Doppler spectral analysis and color flow Doppler imaging. COMPARISON: No relevant prior studies available. FINDINGS: Right common carotid artery: Peak systolic velocity in the right common carotid artery is 120.3 cm/s. Peak systolic velocity in the distal right common carotid artery is 82.8 cm/s. No occlusion or significant stenosis on color flow and spectral Doppler imaging. Right internal carotid artery: Peak systolic velocity in the proximal right internal carotid artery is 153.7 cm/s. Peak systolic velocity in the right mid internal carotid artery is 246.2 cm/s. Peak systolic velocity in the right distal internal carotid artery is 160.7 cm/s. No occlusion or significant stenosis on color flow and spectral Doppler imaging. Right external carotid artery: Peak systolic velocity in the right external carotid artery is 219.2 cm/s. There is moderate stenosis. Right vertebral artery: Unremarkable. Antegrade flow. Right ICA/CCA ratio: 3.0 Left common carotid artery: Peak systolic velocity in the left common carotid artery is 80.7 cm/s. Peak systolic velocity in the left distal common carotid artery is 65.3 cm/s. No occlusion or significant stenosis on color flow and spectral Doppler imaging. Left internal carotid artery: Peak systolic velocity in the left proximal internal carotid artery is 637.6 cm/s. Peak systolic velocity in the left mid internal carotid artery is 245 cm/s. Peak systolic velocity in the left distal internal carotid artery is 69.3 cm/s. No occlusion or significant stenosis on color flow and spectral Doppler imaging. Left external carotid artery: Peak systolic velocity in the left external carotid artery is 189.7 cm/s. No occlusion or significant stenosis on color flow and spectral Doppler imaging. Left vertebral artery: Unremarkable. Antegrade flow. Left ICA/CCA ratio: 9.8 Lymph nodes: Unremarkable. No lymphadenopathy. Other findings: There is moderate atherosclerotic plaque bilaterally. CAROTID STENOSIS REFERENCE USING SRU CRITERIA: Mild - <50% stenosis. ICA PSV is less than 125 cm/second and plaque or intimal thickening is visible. Moderate - 50-69% stenosis. ICA PSV is 125 to 230 cm/second and plaque is visible. Severe - 70-94% stenosis. ICA PSV is more than 230 cm/second and visible plaque with lumen narrowing is seen. Near occlusion - 95-99% stenosis. ICA PSV is variable and significant plaque with luminal narrowing is seen. Occluded - 100% stenosis. No flow identified. IMPRESSION: 70-94% stenosis of the left internal carotid artery. 50-69% stenosis of the right internal carotid artery. Electronically signed by: Chan Arango MD 11/18/22 02:05 AM
[2022-11-18] MEDS: HEPARIN SOD 5,000 UNIT/0.5 ML VIAL SQ SCH ×3 (05:39→21:33)
[2022-11-18 07:12] LABS: Basophils # (auto) 0.03 K/uL (0-0.2); Basophils % (auto) 0.8 %; Eosinophils # (auto) 0.18 K/uL (0-0.50); Eosinophils % (auto) 4.8 %; Hemoglobin 11.4 g/dl (14.0-18.0); Immature Granulocytes # (auto) 0.01 K/uL (0.01-0.20); Immature Granulocytes % (auto) 0.3 %; Lymphocytes # (auto) 1.02 K/uL (1.2-3.4); Lymphocytes % (auto) 27.4 %; Mean Corpuscular Hemoglobin 30.2 pg (25.0-34.0); Mean Corpuscular Hgb Conc 35.6 g/dL (32.0-36.0); Mean Corpuscular Volume 84.9 fL (80.0-100.0); Mean Platelet Volume 10.5 fL (9.4-12.4); Monocytes # (auto) 0.38 K/uL (0.11-0.59); Monocytes % (auto) 10.2 %; Neutrophils % (auto) 56.5 %; Platelet Count 218 K/uL (130-400); RDW Coefficient of Variation 14.7 % (11.5-14.5); Red Blood Count 3.77 M/uL (4.70-6.10); White Blood Count 3.72 K/ul (4.8-10.8)
[2022-11-18 07:30] LABS: BUN Creatinine Ratio 15.4 (10-20); Calcium 8.9 mg/dl (8.6-10.3); Creatinine Clr Calc Pharmacy 59.5 ml/min; Est GFR (African American) 52.7 ml/min; Est GFR (Non-African American) 45.5 ml/min; Magnesium 2.2 mg/dl (1.7-2.4); Potassium 4.2 mmol/L (3.5-5.1)
[2022-11-18 07:45] LABS: Troponin I High Sensitivity 240.9 pg/ml (0-20)
--- NOTE | 2022-11-18 08:24 | Electrocardiogram Report ---
Test Reason : Blood Pressure : / mmHG Vent. Rate : 068 BPM Atrial Rate : 068 BPM P-R Int : 162 ms QRS Dur : 106 ms QT Int : 394 ms P-R-T Axes : 055 023 044 degrees QTc Int : 418 ms Normal sinus rhythm Normal ECG When compared with ECG of 05-OCT-2022 10:57, No significant change was found Confirmed by Isauro Zee ([id number]) on 11/18/2022 8:24:33 AM Referred By: REFERRED SELF Confirmed By:Isauro Zee
[2022-11-18] MEDS: INSULIN ASPART PER UNIT CHARGE SC SCH ×4 (08:56→21:31)
[2022-11-18] MEDS: ISOSORBIDE MONO EXTENDED REL 30 MG TABCR PO SCH (08:57)
[2022-11-18] MEDS: METOPROLOL SUCC 25MG EXT REL TAB PO SCH (08:58)
[2022-11-18] MEDS: LOSARTAN POTASSIUM 50 MG TAB PO SCH (08:58)
[2022-11-18] MEDS: ASPIRIN 81 MG ECTAB PO SCH (08:58)
[2022-11-18] MEDS: allopurinoL 300 MG TAB PO SCH (08:58)
[2022-11-18] MEDS: MULTIVITAMIN TAB PO SCH (08:59)
[2022-11-18] MEDS: TICAGRELOR 90 MG TAB PO SCH ×2 (08:59→21:32)
[2022-11-18] MEDS ORDERED: ROSUVASTATIN CALCIUM 20 MG TAB PO SCH (09:00)
--- NOTE | 2022-11-18 09:41 | Neurology Consultation ---
Date of Consultation November 18, 2022 Assessment & Plan (1) Near syncope: (2) Visual disturbance: (3) Carotid stenosis, bilateral: Plan 62-year-old male with a history of diabetes mellitus, coronary artery disease, status post drug-eluting stent placement, on 2 antiplatelet medications, and rosuvastatin, presenting with episodic tunnel vision over the past few weeks, with an episode triggered after blood draw 2 weeks ago, other episodes occurring in the postprandial timeframe and typically resolving within less than 30 minutes. The episodes occur with a feeling of lightheadedness and are potentially presyncopal. No associated headache, no antecedent history of migraine, I doubt he is having migrainous aura. Further, because the episodes occur after eating, they are not likely due to hypoglycemia. It is notable that he has evidence of bilateral carotid disease on yesterday's carotid ultrasound which suggested a 70 to 94% stenosis of the left internal carotid artery and a 50 to 69% stenosis of the right internal carotid artery. His symptoms are not classic for carotid embolic amaurosis fugax as this syndrome is typically monocular and experienced as painless blindness for one eye, often the perception of a black curtain coming down vertically into the visual field. However, his reported symptoms could be hemodynamic and related to reduced perfusion in the context of bilateral carotid disease and perhaps related to a steal phenomenon in the postprandial timeframe. I would recommend CT angiography of the head and neck. Patient's current creatinine and GFR should be acceptable. Of course our radiology department will screen as well. I agree with noncontrast brain MRI as ordered. Noncontrast MRA of the head as ordered not unreasonable. I agree with echocardiography. Patient should continue with daily low-dose aspirin, Brilinta, and rosuvastatin. It may not be unreasonable to increase his dosage of rosuvastatin, however, as his calculated LDL on a recent lipid panel was suboptimal at 185. Goal LDL should be 70 or less although this level of reduction may not be possible in this patient. Patient's current blood pressure has been appropriate. Continue to monitor his BP, avoid aggressive pharmacologic reduction of blood pressure which could potentiate hypoperfusion in the context of his bilateral carotid stenosis. Agree with vascular surgery consultation. History of Present Illness Reason for Consultation: Vision disturbance, ICA stenosis Requesting Physician: Reggie Dean MD Attending Physician: Reggie Dean MD History of Present Illness The patient is a 62-year-old male with a history of coronary artery disease, history of drug-eluting coronary stents, type 2 diabetes mellitus, hypertension, and dyslipidemia who presented to the emergency department yesterday for complaint of intermittent tunnel vision affecting both eyes, occurring over the past few weeks. He had an episode that occurred after donating blood 2 weeks ago. He has had other similar episodes occurring after eating meals. He complains of feeling lightheaded and dizzy during the episodes, as if he might pass out. He has never had a syncopal episode, however. Episodes usually resolve within less than 30 minutes. He denies experiencing any associated headache. He denies a history of migraine. No known history of stroke or epilepsy. A CT of the head completed yesterday was negative for hemorrhage or acute process. I did independently review these images. There is mild frontal atrophy, no hydrocephalus. No hemorrhage. No signs of an evolving subacute or acute infarct. A carotid ultrasound suggested 70 to 94% stenosis of the left internal carotid artery and 50 to 69% stenosis of the right internal carotid artery. Both vertebral arteries unremarkable, with antegrade flow. The patient remarked to me that he was in the midst of having one of his episodes of diminished peripheral vision affecting both eyes after just having completed breakfast. He also complained of feeling slightly lightheaded, no other associated neurologic symptoms. No chest pain or palpitations. The symptoms resolved and he was in no acute distress. No associated headache. Allergies Allergy/AdvReac Type Severity Reaction Status Date / Time amoxicillin [From Augmentin] Allergy Unknown Unknown Verified 11/17/22 20:39 clavulanic acid Allergy Unknown Unknown Verified 11/17/22 20:39 [From Augmentin] sulfamethoxazole Allergy Unknown Unknown Verified 11/17/22 20:39 [From Bactrim] trimethoprim [From Bactrim] Allergy Unknown Unknown Verified 11/17/22 20:39 Home Medications Medication Instructions Recorded Confirmed Type cholecalciferol (vitamin D3) 125 5,000 units PO QAM 03/02/19 11/17/22 History mcg (5,000 unit) capsule aspirin 81 mg tablet,delayed 81 mg PO QAM 09/20/19 11/17/22 History release vitamin A palmitate 3,000 mcg 10,000 unit PO QAM 09/20/19 11/17/22 History (10,000 unit) capsule allopurinol 300 mg tablet 300 mg PO QAM 08/22/21 11/17/22 History metformin 500 mg tablet,extended 500 mg PO BID 04/05/22 11/17/22 History release 24hr multivitamin 1 tab PO DAILY 04/05/22 11/17/22 History metoprolol succinate 25 mg 25 mg PO DAILY #90 tabs 09/06/22 11/17/22 Rx tablet,extended release 24 hr nitroglycerin 0.4 mg sublingual 0.4 mg sublingual Q5M PRN chest 09/10/22 11/17/22 Rx tablet pain #30 tabs losartan 50 mg tablet 50 mg PO QAM #30 tabs 10/06/22 11/17/22 Rx empagliflozin 10 mg tablet 10 mg PO DAILY 11/08/22 11/17/22 History (Jardiance) rosuvastatin 20 mg tablet (Crestor) 20 mg PO DAILY 11/08/22 11/17/22 History isosorbide mononitrate 30 mg 30 mg PO QAM 11/17/22 11/17/22 History tablet,extended release 24 hr ticagrelor 90 mg tablet (Brilinta) 90 mg PO AMPM 11/17/22 11/17/22 History Patient History Medical History Acute respiratory failure with hypoxia Antiplatelet or antithrombotic long-term use CAD (coronary artery disease) 06/2014: MARTHA to mid RCA Chest pain, atypical CKD (chronic kidney disease), stage III COVID-19 DM type 2 (diabetes mellitus, type 2) Dyslipidemia Fatty liver Gout History of herpes simplex infection History of orthostatic hypotension Hypertension Influenza B Male erectile disorder of organic origin Near syncope Pneumonia due to COVID-19 virus Polyarthritis Surgical History History of ankle surgery right done in 1997 due to fracture Hx of heart artery stent Family History Denies family history of Heart disease Social History Smoking Status: Former smoker Tobacco Type: Cigarettes Second Hand Exposure: No; Do You Dip or Chew Tobacco: No; Hx Alcohol Use: No Hx Substance Use: No Preferred Language: Irish Communication Ability: Effective Pony Worker Required: No Beliefs That Will Affect Care: None marital status: Single Current Living Situation: Alone Other Information That Helps Us Care for You: No Feels Safe at Home: Yes Safety Concerns: Feels Safe At This Time Assistive Devices: None Review of Systems Constitutional: no fever and no chills Eyes: as per Subjective / HPI Ear, Nose, Mouth, Throat: no ear pain and no hearing loss Respiratory: no cough and no dyspnea Cardiovascular: no chest pain and no palpitations Gastrointestinal: no nausea and no vomiting Genitourinary: no urinary incontinence Musculoskeletal: no neck pain and no myalgia Integumentary: no rash and no lesions Neurologic: as per Subjective / HPI Psychiatric: no depression and no anxiety Hematologic / Lymphatic: no easy bleeding and no easy bruising Exam (Neuro) Constitutional: well developed and well nourished; no acute distress Eyes: normal visual rockwell by confrontation, PERRL, normal accommodation and EOM intact bilaterally; no fundoscopic abnormality, no nystagmus and no papilledema Cardiovascular: Vessels: + carotid bruit (Bilateral) and normal carotid upstroke Neurologic: Oriented to:: Person, Place and Time Memory: Short Term Intact and Remote Intact Attention: Span Intact and Concentration Intact Language: Naming Objects and Repeating Phrases Speech Fluency: negative Dysarthria Speech Aphasia: negative Aphasia Fund of Knowledge: Current Events, Past History and Vocabulary Cranial Nerves: Normal II (Visual rockwell full to confrontation, visual acuity normal), III, IV, (Pupils equal round reactive to light and accommodation, eye movements normal), V (Facial sensation intact), VII (There is no facial droop or weakness), VIII (Hearing intact), IX, X (Palate elevates to midline), XI (Shoulder shrug intact) and XII (Tongue protrudes to midline) Motor Strength: Normal Lower Extremities and Normal Upper Extremities; negative Pronator Drift Motor Tone: Normal Lower Extremities and Normal Upper Extremities Muscle Bulk/Involuntary Movements: No Involuntary Movements; negative Muscle Atrophy Sensation: Light Touch Intact, Pain/Temperature Intact and Proprioception Intact; negative Vibration Intact Coordination: Normal; negative Limited Balance, Dysdiadochokinesia, Finger-Nose Abnormal or Heel-Peters Abnormal Deep Tendon Reflexes: Rt Triceps: 1+, Lt Triceps: 1+, Rt Biceps: 1+, Lt Biceps: 1+, Rt Brachioradialis: 1+, Lt Brachioradialis: 1+, Rt Patellar: 1+, Lt Patellar: 1+, Rt Ankle: 1+ and Lt Ankle: 1+ Special Tests: negative Babinski Present Gait: Normal Station and Gait Results & Data Vital Signs (Past 12 Hours) Vital Signs Temp Pulse Pulse Resp BP Pulse Ox Pulse Ox 11/18/22 07:18 36.5 C 74 18 131/77 97 11/18/22 07:08 70 11/18/22 02:57 36.5 C 62 16 137/77 95 11/17/22 22:35 73 11/17/22 23:05 36.5 C 78 16 153/84 H 99 11/17/22 23:05 36.5 C 78 16 153/84 H 99 11/17/22 23:05 99 11/17/22 23:00 11/17/22 21:30 71 18 93 O2 Del Method O2 Del Method 11/18/22 07:18 Room Air 11/18/22 07:08 11/18/22 02:57 Room Air 11/17/22 22:35 11/17/22 23:05 Room Air 11/17/22 23:05 Room Air 11/17/22 23:05 Room Air 11/17/22 23:00 Room Air 11/17/22 21:30 Laboratory Results WBC 3.72, hemoglobin 11.4, hematocrit 32.0, platelet count 218, sodium 141, potassium 4.2, BUN 25, creatinine 1.62, glucose 119, calcium 8.9, magnesium 2.2, AST 19, ALT 11, troponin high-sensitivity 240.9, vitamin B12 1382, TSH 2.369, Lyme screening negative, SARS-CoV-2 RNA negative. A lipid panel from September 2022 was reviewed. Triglycerides 193, cholesterol 267, LDL 185, VLDL 39, HDL 43. Hemoglobin A1c at that time was 6.8. Hemoglobin A1c from August [address] Findings [address] of the head is as described in the history of present illness, I in dependently reviewed these images. Carotid Doppler is as described in the history of present illness as well. Electrocardiogram reveals a normal sinus rhythm, no significant change compared with the previous ECG done October 05, 2022. PG Care Time/CCT Total # of Minutes Spent Total Time Spent with Patient: Total time spent is greater than 50% in coordination of care (as documented) at patient's floor/unit and/or counseling patient: 80 minutes Coding Level of Care Code 90500 INT INP/OBS CARE 3/75MIN Diagnoses Near syncope R55 Visual disturbance H53.9 Carotid stenosis, bilateral I65.23
--- NOTE | 2022-11-18 14:35 | Hospitalist Progress Note ---
Date of Service November 18, 2022 Assessment & Plan (1) Visual disturbance: Plan: Intermittent tunnel vision bilateral In the setting of bilateral carotid artery stenosis CT head: No acute process Carotid Doppler: Left ICA 50 to 94% stenosis, right ICA 50 to 70% stenosis Brain MRI, MRA: Pending CT angiogram head and neck: Pending Check orthostatic vital signs Neurology service consulted-further imaging pending, continue usual aspirin, Brilinta, Lipitor Vascular surgery consulted Prevent hypotension chronic diastolic heart failure (EF 60 to 65%, TTE 2021), patient euvolemic valvular heart disease (moderate MR, mild AR/TR) hx CAD status post stent hypertension, stable hyperlipidemia on statin Rx CRI, at baseline DM2 on oral medications, well-controlled as of recent outpatient hemoglobin A1c of 6.18 October 2022 past tobacco abuse DVT prophylaxis. Heparin subcu Full code Disposition: Anticipate discharge to home medically stable plan of care discussed with patient in detail and at length all questions answered he is understanding, agreeable, comfortable with the plan of care Admission and Anticipated Discharge Date Admission Date: November 18, 2022 Subjective Follow-up for visual disturbance, bilateral carotid artery stenosis, etc. Seen sitting up in bed, comfortable, not in distress Had another episode of similar visual disturbance after breakfast Has since resolved Denies dizziness, lightheadedness, chest pain, shortness of breath, palpitations, nausea No other symptoms Review of Systems Review of Systems: all noted and negative except for above Physical Exam Physical Exam: General- oriented x 3, not in distress, speaks in sentences with no effort or accessory muscle use Eyes- anicteric Neck- no JVD Lungs- clear breath sounds bilaterally, no rales/wheezes Heart- normal rate, regular rhythm; no murmurs Abdomen- normal bowel sounds, nondistended, soft, nontender Extremities- no pretibial edema, no calf tenderness Neuro- alert, oriented x 3; no gross focal neurologic deficits Skin- warm & dry Results & Data Results & Data Vital Signs (Past 12 Hours) Vital Signs Temp Pulse Pulse Resp BP Pulse Ox O2 Del Method 11/18/22 11:10 36.5 C 75 18 127/78 97 Room Air 11/18/22 07:18 36.5 C 74 18 131/77 97 Room Air 11/18/22 07:08 70 11/18/22 02:57 36.5 C 62 16 137/77 95 Room Air all noted and reviewed including below
[2022-11-18] MEDS: ROSUVASTATIN CALCIUM 20 MG TAB PO SCH (21:33)
--- NOTE | 2022-11-19 00:51 | Magnetic Resonance Report ---
Exam(s): MRI HEAD Without Contrast History: Reason for exam: tunnel vision. Exam: MR HEAD Without Contrast Comparison: MRI and sure 11/18/2022, CT head 11/17/2022 Technique: Multisequence multiplanar MRI of the brain on 1.5 Gail MRI scanner Findings: Talbot-white matter differentiation is seen to be normal. Ventricles, extra-axial CSF spaces are slightly prominent consistent with involutional changes. Scattered chronic white matter changes of small vessel ischemic disease. No acute intracranial hemorrhage mass-effect or edema. Globes, orbits, cerebellopontine angles are normal. Paranasal sinuses, mastoid air cells are normal. Vascular flow voids are patent. Impression: 1. No acute intracranial finding. Electronically signed by: Jadyn Wei MD 11/19/22 00:51 AM
--- NOTE | 2022-11-19 01:18 | Magnetic Resonance Report ---
Exam(s): MRA HEAD Without Contrast History: Reason for exam: tunnel vision. Exam: MRA HEAD Without Contrast Comparison: Findings: Bilateral internal carotid artery, horizontal portion, vertical portion, cavernous carotid, anterior and middle cerebral arteries are normal. Basilar artery, cerebellar branches, bilateral posterior cerebral arteries are normal. Symmetric bilateral vertebral arteries and V4 segment. Other incidentals: Patent bilateral posterior communicating artery Patent anterior communicating artery. Proximal aspect of the right ophthalmic artery is seen. Left ophthalmic artery is not is well seen. Impression: 1. Normal MRA of [place]. Electronically signed by: Jadyn Wei MD 11/19/22 01:17 AM
[2022-11-19] MEDS: HEPARIN SOD 5,000 UNIT/0.5 ML VIAL SQ SCH ×2 (05:25→13:39)
[2022-11-19] MEDS: INSULIN ASPART PER UNIT CHARGE SC SCH ×2 (08:48→11:58)
[2022-11-19] MEDS: TICAGRELOR 90 MG TAB PO SCH (09:15)
[2022-11-19] MEDS: METOPROLOL SUCC 25MG EXT REL TAB PO SCH (09:16)
[2022-11-19] MEDS: MULTIVITAMIN TAB PO SCH (09:16)
[2022-11-19] MEDS: LOSARTAN POTASSIUM 50 MG TAB PO SCH (09:16)
[2022-11-19] MEDS: allopurinoL 300 MG TAB PO SCH (09:16)
[2022-11-19] MEDS: ISOSORBIDE MONO EXTENDED REL 30 MG TABCR PO SCH (09:17)
[2022-11-19] MEDS: ASPIRIN 81 MG ECTAB PO SCH (09:17)
[2022-11-19] MEDS ORDERED: OPTIRAY 320 500ml IV ONE (09:39)
--- NOTE | 2022-11-19 10:25 | CT Scan Report ---
CT angio neck with con CLINICAL HISTORY: 62 years-old Male with severe left carotid stenosis. Follow-up study in a patien t with a stenosis of the left internal carotid artery. COMPARISON STUDY: Carotid ultrasound 11/18/2022, brain MRI 11/18/2022. TECHNIQUE: Following the IV administration of 115 mL of Optiray, CT angiogram of the neck was perform ed from the aortic arch to the skull base. Images are reviewed in the axial, sagittal, and coronal pl anes. 3-D MIPS images are created and assessed. IV contrast was administered without complication. Al l measurements were calculated based on NASCET criteria. A dose lowering technique was utilized adhe ring to the principles of ALARA. CT DOSE: 641.95 mGy.cm FINDINGS: Atherosclerosis of the thoracic aorta. There is patency of the innominate and imaged subclavian arter ies. The common carotid arteries are patent. Moderate atherosclerotic plaque of the right carotid bul b and proximal right ICA results in approximately 50% stenosis. Severe atherosclerotic plaque of the left carotid bulb and proximal left ICA results in 80-90% stenosis, image 253 series 4. Areas of mult ifocal narrowing measuring up to approximately 50% are noted within the bilateral petrous and caverno us segments of the internal carotid arteries. There is a least moderate stenosis at the origin of the left vertebral artery, suboptimally visualize d secondary to motion artifact. Mild stenosis at the origin of the right vertebral artery. Diminutive and patent basilar artery with origin of the posterior cerebral arteries. Lung apices appear to be clear. There is no pneumothorax. Unremarkable soft tissues. Multilevel degen erative changes of the cervical spine. No acute fracture identified. IMPRESSION: 1. Severe atherosclerotic plaque of the left carotid bulb and proximal left ICA results in high-grade stenosis of greater than 70%. 2. Moderate atherosclerotic plaque of the right carotid bulb and proximal right ICA results in approx imately 50% stenosis. ACT 112: Negative or not required by law. The above report was generated using voice recognition software. It may contain grammatical, syntax o r spelling errors. Electronically signed by: Petey Nelson M.D. 11/19/2022 10:23 AM
--- NOTE | 2022-11-19 14:02 | Consultation ---
Date of Consultation November 19, 2022 Assessment & Plan (1) Carotid stenosis, bilateral: Pt with asymptomatic L ICA stenosis of over 95%. Advised pt of significantly increased risk of CVA and recommendation to undergo revascularization procedure this week. Discussed L CEA vs L TCAR procedures, including risks and benefits. Pt would like to proceed with L TCAR, however, he wishes to wait a few weeks and would like to discuss in office again in 3 weeks. Office will call pt to set up appt. Pt MUST remain on brilinta or plavix, as well as 81mg ASA, and statin medication in order to undergo his TCAR procedure. Please call if needed. History of Present Illness Reason for Consultation: LICA stenosis Attending Physician: Reggie Dean MD History of Present Illness 62 yo m with hx of CAD, cardiac cath with MARTHA 10/04, HTN, , CKD, DMII, dyslipidemia, admitted after near syncopal event during which he had "tunnel vision" and felt lightheaded, seen in consultation today for L ICA stenosis noted on imaging. Pt states has been feeling ok since admission. Pt denies syncope, amaurosis, unilateral extremity weakness numbness or tingling, difficulty speaking, facial droop, sudden onset confusion. Denies FLORES, fever, recent illness, chest pain, palpitations, SOB, abd pain, N/V, rest pain, claudication, other complaints Carotid US and CTA of neck demonstrates severe L ICA stenosis of 95%+. Allergies Allergy/AdvReac Type Severity Reaction Status Date / Time amoxicillin [From Augmentin] Allergy Unknown Unknown Verified 11/17/22 20:39 clavulanic acid Allergy Unknown Unknown Verified 11/17/22 20:39 [From Augmentin] sulfamethoxazole Allergy Unknown Unknown Verified 11/17/22 20:39 [From Bactrim] trimethoprim [From Bactrim] Allergy Unknown Unknown Verified 11/17/22 20:39 Home Medications Medication Instructions Recorded Confirmed Type cholecalciferol (vitamin D3) 125 5,000 units PO QAM 03/02/19 11/17/22 History mcg (5,000 unit) capsule aspirin 81 mg tablet,delayed 81 mg PO QAM 09/20/19 11/17/22 History release vitamin A palmitate 3,000 mcg 10,000 unit PO QAM 09/20/19 11/17/22 History (10,000 unit) capsule allopurinol 300 mg tablet 300 mg PO QAM 08/22/21 11/17/22 History metformin 500 mg tablet,extended 500 mg PO BID 04/05/22 11/17/22 History release 24hr multivitamin 1 tab PO DAILY 04/05/22 11/17/22 History metoprolol succinate 25 mg 25 mg PO DAILY #90 tabs 09/06/22 11/17/22 Rx tablet,extended release 24 hr nitroglycerin 0.4 mg sublingual 0.4 mg sublingual Q5M PRN chest 09/10/22 11/17/22 Rx tablet pain #30 tabs losartan 50 mg tablet 50 mg PO QAM #30 tabs 10/06/22 11/17/22 Rx empagliflozin 10 mg tablet 10 mg PO DAILY 11/08/22 11/17/22 History (Jardiance) rosuvastatin 20 mg tablet (Crestor) 20 mg PO DAILY 11/08/22 11/17/22 History isosorbide mononitrate 30 mg 30 mg PO QAM 11/17/22 11/17/22 History tablet,extended release 24 hr ticagrelor 90 mg tablet (Brilinta) 90 mg PO AMPM 11/17/22 11/17/22 History Patient History Medical History Acute respiratory failure with hypoxia Antiplatelet or antithrombotic long-term use CAD (coronary artery disease) 06/2014: MARTHA to mid RCA Chest pain, atypical CKD (chronic kidney disease), stage III COVID-19 DM type 2 (diabetes mellitus, type 2) Dyslipidemia Fatty liver Gout History of herpes simplex infection History of orthostatic hypotension Hypertension Influenza B Male erectile disorder of organic origin Near syncope Pneumonia due to COVID-19 virus Polyarthritis Surgical History History of ankle surgery right done in 1997 due to fracture Hx of heart artery stent Family History Denies family history of Heart disease Social History Smoking Status: Former smoker Tobacco Type: Cigarettes Second Hand Exposure: No; Do You Dip or Chew Tobacco: No; Hx Alcohol Use: No Hx Substance Use: No Preferred Language: Chadian Communication Ability: Effective Visual Display Associate Required: No Beliefs That Will Affect Care: None marital status: Single Current Living Situation: Alone Other Information That Helps Us Care for You: No Feels Safe at Home: Yes Safety Concerns: Feels Safe At This Time Assistive Devices: None Review of Systems Review of Systems: All systems reviewed & are unremarkable except as noted in HPI & below Physical Exam Constitutional: WD/WN, vitals as above healthy appearing and cooperative; not in distress ENMT: Ears: no hearing impairment Neck: trachea midline Respiratory: normal respiratory effort, lungs clear to auscultation Auscultation: + diminished lung sounds Cardiovascular: Rate/Rhythm: regular rate and regular rhythm Vessels: femoral pulses present, posterior tibial pulses present, dorsalis pedis pulses present and radial pulses present; + abnormal peripheral pulses Extremities: normal capillary refill; no edema Gastrointestinal (Abdomen): Inspection/Auscultation: abdomen normal to inspection and normal bowel sounds Percussion/Palpation: abdomen soft; abdomen nontender Musculoskeletal: no cyanosis or clubbing, extremities motor strength 5/5 Skin: no rashes, warm and dry Neurologic: CN's II-XI intact bilaterally, moves all extremities and awake; no focal motor deficits and not confused Psychiatric: A+Ox3, euthymic affect Results & Data Vital Signs (Past 12 Hours) Vital Signs Temp Pulse Pulse Resp BP Pulse Ox O2 Del Method 11/19/22 12:01 36.6 C 56 L 18 118/71 95 Room Air 11/19/22 07:15 75 11/19/22 08:05 36.7 C 67 18 150/76 H 96 Room Air 11/19/22 03:20 36.5 C 75 18 130/79 95 Room Air
--- NOTE | 2022-11-19 19:10 | Discharge Summary ---
Discharge Summary Date of Service November 19, 2022 Notes For Next Care Provider Please refer to vascular surgery For bilateral carotid artery stenosis. Medication Changes From Visit Decrease losartan from 50 mg to 25 mg daily. Admission HPI Per Admitting Provider History obtained from patient and records. Medical history significant for chronic diastolic heart failure (EF 60 to 65%, TTE 2021), valvular heart disease (moderate MR, mild AR/TR), CAD status post stent, hypertension, hyperlipidemia, CRI (baseline creatinine 1.7), DM2 on oral medications, gout, past tobacco abuse. Last confinement September 2022 for unstable angina. Severe multivessel CAD on diagnostic cardiac catheterization. Subsequent drug-eluting stent placement with note of hemodynamically significant lesions in the LAD. 2 weeks ago, patient donated 2 pints of blood to a local blood donation center. Shortly after blood donation patient would note intermittent tunnel vision bilateral without headache symptoms. No chest pain, no SOB. Denies abdominal pain, black, bloody stools. Patient compliant with home medications. Patient consulted ER for evaluation. 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 Admission Exam Per Admitting Provider GENERAL: Comfortable, pleasant, no respiratory distress SKIN: Pallor, warm HEENT: Pale palpebral conjunctivae, no ptosis, dry buccal mucosa NECK : Supple, no tenderness CHEST : CTA, no tenderness HEART : RRR, systolic murmur ABDOMEN: no distention, nontender EXTREMITIES : No LE swelling/tenderness, no other conspicuous deformities noted NEUROLOGIC : Coherent, no facial asymmetry, no other gross focality Principal Dx & Hospital Course #1 = Principal Diagnosis (1) Visual disturbance: Intermittent tunnel vision bilateral Likely secondary to episodes of hypotension In the setting of bilateral carotid artery stenosis, Left ICA 50 to 94% stenosis Acute CVA ruled out CT head: No acute process Carotid Doppler: Left ICA 50 to 94% stenosis, right ICA 50 to 70% stenosis Brain MRI, MRA: No acute process CT angiogram head and neck: 1. Severe atherosclerotic plaque of the left carotid bulb and proximal left ICA results in high-grade stenosis of greater than 70%. 2. Moderate atherosclerotic plaque of the right carotid bulb and proximal right ICA results in approximately 50% stenosis. Neurology service consulted- continue usual aspirin, Brilinta, Lipitor Vascular surgery consulted-does not feel patient's symptoms related to coronary artery stenosis, but does recommend left TCAR -Patient prefers to seek opinion from [facility] vascular surgery service Please refer to vascular surgery service of [facility] Patient's blood pressure readings at home reviewed Noted systolic BP 100s, 90s on admission day Decrease losartan from 50 to 25 mg p.o. daily Monitor blood pressure closely as an outpatient chronic diastolic heart failure (EF 60 to 65%, TTE 2021), patient euvolemic valvular heart disease (moderate MR, mild AR/TR) hx CAD status post stent hypertension, stable hyperlipidemia on statin Rx CRI, at baseline DM2 on oral medications, well-controlled as of recent outpatient hemoglobin A1c of 6.18 October 2022 past tobacco abuse DVT prophylaxis. Heparin subcu Full code Disposition: Discharge to home plan of care discussed with patient in detail and at length all questions answered he is understanding, agreeable, comfortable with the plan of care Discharge Exam General- oriented x 3, not in distress, speaks in sentences with no effort or accessory muscle use Eyes- anicteric Neck- no JVD Lungs- clear breath sounds bilaterally, no rales/wheezes Heart- normal rate, regular rhythm; no murmurs Abdomen- normal bowel sounds, nondistended, soft, nontender Extremities- no pretibial edema, no calf tenderness Neuro- alert, oriented x 3; no gross focal neurologic deficits Skin- warm & dry Updated Medication List Medication Instructions Recorded Confirmed Type cholecalciferol (vitamin D3) 125 5,000 units PO QAM 03/02/19 11/17/22 History mcg (5,000 unit) capsule aspirin 81 mg tablet,delayed 81 mg PO QAM 09/20/19 11/17/22 History release vitamin A palmitate 3,000 mcg 10,000 unit PO QAM 09/20/19 11/17/22 History (10,000 unit) capsule allopurinol 300 mg tablet 300 mg PO QAM 08/22/21 11/17/22 History metformin 500 mg tablet,extended 500 mg PO BID 04/05/22 11/17/22 History release 24hr multivitamin 1 tab PO DAILY 04/05/22 11/17/22 History metoprolol succinate 25 mg 25 mg PO DAILY #90 tabs 09/06/22 11/17/22 Rx tablet,extended release 24 hr nitroglycerin 0.4 mg sublingual 0.4 mg sublingual Q5M PRN chest 09/10/22 11/17/22 Rx tablet pain #30 tabs empagliflozin 10 mg tablet 10 mg PO DAILY 11/08/22 11/17/22 History (Jardiance) rosuvastatin 20 mg tablet (Crestor) 20 mg PO DAILY 11/08/22 11/17/22 History isosorbide mononitrate 30 mg 30 mg PO QAM 11/17/22 11/17/22 History tablet,extended release 24 hr ticagrelor 90 mg tablet (Brilinta) 90 mg PO AMPM 11/17/22 11/17/22 History losartan 50 mg tablet 25 mg PO QAM #30 tabs 11/19/22 11/17/22 Rx Hospital Stay Data Consultations 11/17/22 19:50 ED Decision to Admit Stat 11/18/22 05:30 Consult Vascular Surgery Routine 11/18/22 07:49 Consult Neurology Routine Diagnostic Imagining Performed 11/17/22 20:36 CT head/brain wo con Stat CLINICAL HISTORY: Reason for exam: dizziness, tunnel vision, anemia. TECHNIQUE: Axial computed tomography images of the head/brain without intravenous contrast. CTDI is 36.41 mGy and DLP is 614.27 mGy-cm. Automated exposure control was utilized for the study. A dose lowering technique was utilized adhering to the principles of ALARA. COMPARISON: No relevant prior studies available. FINDINGS: No acute intracranial hemorrhage. No midline shift or mass effect. The territorial talbot-white matter differentiation is maintained throughout. Age-related cerebral volume loss. Periventricular and subcortical white matter hypoattenuation, consistent with chronic microangiopathy. The visualized orbits appear grossly unremarkable. The calvarium is intact. The visualized paranasal sinuses and mastoid air cells are grossly clear. IMPRESSION: No acute intracranial hemorrhage, midline shift, or mass effect. Electronically signed by: Riley Gomez MD 11/17/22 21:58 PM 11/17/22 22:12 US carotid doppler BI Routine COMPARISON: No relevant prior studies available. FINDINGS: Right common carotid artery: Peak systolic velocity in the right common carotid artery is 120.3 cm/s. Peak systolic velocity in the distal right common carotid artery is 82.8 cm/s. No occlusion or significant stenosis on color flow and spectral Doppler imaging. Right internal carotid artery: Peak systolic velocity in the proximal right internal carotid artery is 153.7 cm/s. Peak systolic velocity in the right mid internal carotid artery is 246.2 cm/s. Peak systolic velocity in the right distal internal carotid artery is 160.7 cm/s. No occlusion or significant stenosis on color flow and spectral Doppler imaging. Right external carotid artery: Peak systolic velocity in the right external carotid artery is 219.2 cm/s. There is moderate stenosis. Right vertebral artery: Unremarkable. Antegrade flow. Right ICA/CCA ratio: 3.0 Left common carotid artery: Peak systolic velocity in the left common carotid artery is 80.7 cm/s. Peak systolic velocity in the left distal common carotid artery is 65.3 cm/s. No occlusion or significant stenosis on color flow and spectral Doppler imaging. Left internal carotid artery: Peak systolic velocity in the left proximal internal carotid artery is 637.6 cm/s. Peak systolic velocity in the left mid internal carotid artery is 245 cm/s. Peak systolic velocity in the left distal internal carotid artery is 69.3 cm/s. No occlusion or significant stenosis on color flow and spectral Doppler imaging. Left external carotid artery: Peak systolic velocity in the left external carotid artery is 189.7 cm/s. No occlusion or significant stenosis on color flow and spectral Doppler imaging. Left vertebral artery: Unremarkable. Antegrade flow. Left ICA/CCA ratio: 9.8 Lymph nodes: Unremarkable. No lymphadenopathy. Other findings: There is moderate atherosclerotic plaque bilaterally. CAROTID STENOSIS REFERENCE USING SRU CRITERIA: Mild - <50% stenosis. ICA PSV is less than 125 cm/second and plaque or intimal thickening is visible. Moderate - 50-69% stenosis. ICA PSV is 125 to 230 cm/second and plaque is visible. Severe - 70-94% stenosis. ICA PSV is more than 230 cm/second and visible plaque with lumen narrowing is seen. Near occlusion - 95-99% stenosis. ICA PSV is variable and significant plaque with luminal narrowing is seen. Occluded - 100% stenosis. No flow identified. IMPRESSION: 70-94% stenosis of the left internal carotid artery. 50-69% stenosis of the right internal carotid artery. Electronically signed by: Chan Arango MD 11/18/22 02:05 AM Dictated:11/18/22 [id number] 11/18/22 22:34 MR angio head wo con Stat Comparison: Findings: Bilateral internal carotid artery, horizontal portion, vertical portion, cavernous carotid, anterior and middle cerebral arteries are normal. Basilar artery, cerebellar branches, bilateral posterior cerebral arteries are normal. Symmetric bilateral vertebral arteries and V4 segment. Other incidentals: Patent bilateral posterior communicating artery Patent anterior communicating artery. Proximal aspect of the right ophthalmic artery is seen. Left ophthalmic artery is not is well seen. Impression: 1. Normal MRA of [place]. MR brain wo con Stat Comparison: MRI and sure 11/18/2022, CT head 11/17/2022 Technique: Multisequence multiplanar MRI of the brain on 1.5 Gail MRI scanner Findings: Talbot-white matter differentiation is seen to be normal. Ventricles, extra-axial CSF spaces are slightly prominent consistent with involutional changes. Scattered chronic white matter changes of small vessel ischemic disease. No acute intracranial hemorrhage mass-effect or edema. Globes, orbits, cerebellopontine angles are normal. Paranasal sinuses, mastoid air cells are normal. Vascular flow voids are patent. Impression: 1. No acute intracranial finding. 11/19/22 07:47 CT angio neck with con Routine COMPARISON STUDY: Carotid ultrasound 11/18/2022, brain MRI 11/18/2022. TECHNIQUE: Following the IV administration of 115 mL of Optiray, CT angiogram of the neck was performed from the aortic arch to the skull base. Images are reviewed in the axial, sagittal, and coronal planes. 3-D MIPS images are created and assessed. IV contrast was administered without complication. All measurements were calculated based on NASCET criteria. A dose lowering technique was utilized adhering to the principles of ALARA. CT DOSE: 641.95 mGy.cm FINDINGS: Atherosclerosis of the thoracic aorta. There is patency of the innominate and imaged subclavian arteries. The common carotid arteries are patent. Moderate a therosclerotic plaque of the right carotid bulb and proximal right ICA results in approximately 50% stenosis. Severe atherosclerotic plaque of the left carotid bulb and proximal left ICA results in 80-90% stenosis, image 253 series 4. Areas of multifocal narrowing measuring up to approximately 50% are noted within the bilateral petrous and cavernous segments of the internal carotid arteries. There is a least moderate stenosis at the origin of the left vertebral artery, suboptimally visualized secondary to motion artifact. Mild stenosis at the origin of the right vertebral artery. Diminutive and patent basilar artery with origin of the posterior cerebral arteries. Lung apices appear to be clear. There is no pneumothorax. Unremarkable soft tissues. Multilevel degenerative changes of the cervical spine. No acute fracture identified. IMPRESSION: 1. Severe atherosclerotic plaque of the left carotid bulb and proximal left ICA results in high-grade stenosis of greater than 70%. 2. Moderate atherosclerotic plaque of the right carotid bulb and proximal right ICA results in approximately 50% stenosis. ACT 112: Negative or not required by law. Pending Results Patient Have Any Pending Studies at Discharge: No Discharge Instructions Given to Patient (Per Discharging Provider) PLEASE REFER TO YOUR NEW MEDICATION LIST AND FOLLOW INSTRUCTIONS CAREFULLY. YOUR NEW MEDICATIONS INCLUDE: Decrease losartan from 50 mg to 25 mg daily. Call your primary care physician if your blood pressure is persistently above 150 or below 110. PLEASE CALL YOUR PRIMARY CARE PHYSICIAN OR RETURN TO THE ER IF WITH WORSENING OF SYMPTOMS, INCLUDING Visual disturbance, focal weakness or numbness, chest pain, shortness of breath, palpitations, dizziness/lightheadedness, etc. FOLLOW UP WITH PRIMARY CARE PHYSICIAN in 1 week. You need to follow-up with vascular surgery in 2 weeks. Follow-up with cardiology clinic as scheduled. Take care. Total Time Total Time Spent Total Time Spent (In Minutes): >30 minutes
--- NOTE | 2022-11-19 19:10 | Hospitalist Progress Note ---
Date of Service November 19, 2022 Assessment & Plan (1) Visual disturbance: Plan: Intermittent tunnel vision bilateral Likely secondary to episodes of hypotension In the setting of bilateral carotid artery stenosis Acute CVA ruled out CT head: No acute process Carotid Doppler: Left ICA 50 to 94% stenosis, right ICA 50 to 70% stenosis Brain MRI, MRA: No acute process CT angiogram head and neck: 1. Severe atherosclerotic plaque of the left carotid bulb and proximal left ICA results in high-grade stenosis of greater than 70%. 2. Moderate atherosclerotic plaque of the right carotid bulb and proximal right ICA results in approximately 50% stenosis. Neurology service consulted- continue usual aspirin, Brilinta, Lipitor Vascular surgery consulted-does not feel patient's symptoms related to coronary artery stenosis, but does recommend left TCAR -Patient prefers to seek opinion from [facility] vascular surgery service Please refer to vascular surgery service of [facility] Patient's blood pressure readings at home reviewed Noted systolic BP 100s, 90s on admission day Decrease losartan from 50 to 25 mg p.o. daily Monitor blood pressure closely as an outpatient chronic diastolic heart failure (EF 60 to 65%, TTE 2021), patient euvolemic valvular heart disease (moderate MR, mild AR/TR) hx CAD status post stent hypertension, stable hyperlipidemia on statin Rx CRI, at baseline DM2 on oral medications, well-controlled as of recent outpatient hemoglobin A1c of 6.18 October 2022 past tobacco abuse DVT prophylaxis. Heparin subcu Full code Disposition: Discharge to home plan of care discussed with patient in detail and at length all questions answered he is understanding, agreeable, comfortable with the plan of care Admission and Anticipated Discharge Date Admission Date: November 18, 2022 Subjective Follow-up for visual disturbance, acute CVA ruled out, bilateral carotid stenosis, etc. Seen resting in bed, sitting up, in good spirits States he feels fine overall No recurrence of visual disturbance or any other focal neurologic symptoms Denies chest pain, shortness of breath, palpitations, dizziness Ambulating in the hallways with no problems No other new symptoms States he is ready for discharge today Review of Systems Review of Systems: all noted and negative except for above Physical Exam Physical Exam: General- oriented x 3, not in distress, speaks in sentences with no effort or accessory muscle use Eyes- anicteric Neck- no JVD Lungs- clear breath sounds bilaterally, no rales/wheezes Heart- normal rate, regular rhythm; no murmurs Abdomen- normal bowel sounds, nondistended, soft, nontender Extremities- no pretibial edema, no calf tenderness Neuro- alert, oriented x 3; no gross focal neurologic deficits Skin- warm & dry Results & Data Results & Data Vital Signs (Past 12 Hours) Vital Signs Temp Pulse Pulse Resp BP Pulse Ox O2 Del Method 11/19/22 15:55 36.6 C 77 18 125/75 96 Room Air 11/19/22 12:01 36.6 C 56 L 18 118/71 95 Room Air 11/19/22 07:15 75 11/19/22 08:05 36.7 C 67 18 150/76 H 96 Room Air all noted and reviewed including below
--- NOTE | 2022-11-19 22:24 | XCELERA ---
[id number]
== END 2022-11-19 17:04 | disposition home or self-care (01) | DRG 68 ==
LOC: ED 17:40 → 2W 17:40